=== PATIENT | female | born 1965 | race Caucasian/White ===

== ENCOUNTER 2025-04-01 16:21 | Inpatient (IN) | payer SELFPAY ==
[2025-04-01] VITALS (7 sets, daily range): BP systolic 157–216; BP diastolic 66–113; BMI 32.2; BMI 31.8
[2025-04-01 13:28] LABS: Hematocrit 32.4 % (37.0-47.0); Hemoglobin 10.7 g/dL (12.0-16.0); Mean Corp Hgb Conc. 33.0 g/dL (33.0-37.0); Mean Corpuscular Volume 91.0 fL (81.0-99.0); Nucleated Red Blood Cells % 0 %; Platelet Count 235 10^3/uL (130-400); Red Cell Dist. Width 12.6 % (11.5-14.5)
[2025-04-01 14:01] LABS: ALT (SGPT) 13 U/L (0-35); AST (SGOT) 17 U/L (14-36); Albumin 4.1 g/dl (3.5-5.0); Alkaline Phosphatase 71 U/L (38-126); Blood Urea Nitrogen 34 mg/dl (7-17); Calcium 9.6 mg/dl (8.4-10.2); Carbon Dioxide 25 mmol/L (22-30); Chloride 113 mmol/L (98-107); Glucose 102 mg/dl (70-99); Potassium 4.7 mmol/L (3.5-5.1); Sodium 145 mmol/L (135-145); Total Protein 7.3 g/dl (6.3-8.2); eGFR 31.66
[2025-04-01 14:19] LABS: Troponin I 0.330 ng/ml
--- NOTE | 2025-04-01 15:16 | ED.GENMED ---
History of Present Illness
General
Chief Complaint: Chest Pain
Source: patient
Exam Limitations: none
Time Seen by Provider: 04/01/25 14:56
History of Present Illness
History of Present Illness:
See MDM
Past History
Past History
ED Past Medical History: HTN
ED Past Surgical History: Other (Gastric bypass)
Social History
Tobacco: Non-smoker
Alcohol: None
Phy Exam
Physical Exam
Physical Exam:
See MDM
Scores
Heart Score for Chest Pain Patients
STEMI patient?: No
History: Slightly or Non-Suspicious
ECG: Nonspecific Repolarization
Age: >45 - <65 years
Risk Factors: 1 or 2 Risk Factors
Troponin: >/= 3 x Normal Limit
Heart Score for Chest Pain Patients: 5
Heart Score Risk: 20.3% MACE over next 6 weeks
Course
Orders/Labs/Results
Orders:
Orders
04/01/25 12:54
Electrocardiogram (*1) Urgent
Reason for Study: Chest Pain
EKG- Treatment ONCE
04/01/25 13:09
Complete Blood Count/With Diff Urgent
Comprehensive Metabolic Panel Urgent
Troponin I Urgent
04/01/25 15:08
PTT Urgent
Prothrombin Time Urgent
Aspirin Chewable [Low Strength Aspirin] 324 mg PO NOW STA
Heparin 4,000 units IV NOW STA
Nitroglycerin Sublingual [Nitrostat (Sublingual)] 0.4 mg SL [id number] PRN
Nursing to Place Non Medication Order As Directed
Physician Order: PTT 6 hours after initial start of Heparin infusion
04/01/25 15:15
Heparin 29603 Units/250 ml 25,000 units in 250 ml IV PER PROTOCOL
Weight to be used for heparin protocol in kilograms (kg):: 90.5
Protocol:: Cardiac Tx/Acute Coronary
PTT Goal Range to be used:: PTT 73 to 111 seconds
Order type:: Initial
INITIAL Infusion Dose (UNITS/KG/hr) & then follow protocol:: 15 units/kg/hr
Infusion Dose in UNITS/hr & then follow protocol (UNITS/hr):: 1,350
INFUSION RATE in mL/hr & then follow protocol (mL/hr):: 13.5
PTT less than or equal to 64 seconds:: Increase rate by 200 units/hr (+ 2 mL/hr)
PTT 64.1 to 72.9 seconds:: Increase rate by 100 units/hr (+ 1 mL/hr)
PTT 73 to 111 seconds:: Target Range. No change in rate.
PTT 111.1 to 130.9 seconds:: Decrease rate by 100 units/hr (- 1 mL/hr)
PTT 131 to 199.9 seconds:: HOLD for 1 hr. Then decrease rate by 200 units/hr (- 2 mL/hr)
PTT greater than or equal to 200 seconds:: HOLD for 2 hrs & Notify Provider. Then decrease by 200 units/hr (-
2 mL/hr)
Lab follow-up:: Each change, PTT q6h until 2 consecutive are therapeutic. Then PTT
daily.
04/01/25 15:16
Consult Cardiology [CARDIOLOGY CONSULT] Urgent
Consulting Provider: Everette Vergara
Was physician already notified: Yes
Abnormal Lab Results
04/01/25
13:09
RBC 3.56 L 10^6/uL
(4.20-5.40)
Hgb 10.7 L g/dL
(12.0-16.0)
Hct 32.4 L %
(37.0-47.0)
Absolute Monos (auto) 0.7 H 10^3/uL
(0.1-0.6)
Monocytes % 12.1 H %
(1.7-9.3)
Chloride 113 H mmol/L
(98-107)
BUN 34 H mg/dl
(7-17)
Creatinine 1.8 H mg/dL
(0.6-1.0)
Glucose 102 H mg/dl
(70-99)
Troponin I 0.330 H* ng/ml
04/01/25 13:09
04/01/25 13:09
Vital Signs
Initial and Last Documented VS:
Initial Vital Signs
Temp Pulse Resp BP Pulse Ox
98 F 60 16 157/113 97
04/01/25 13:04 04/01/25 13:04 04/01/25 13:04 04/01/25 13:04 04/01/25 13:04
Last Documented Vital Signs
Temp Pulse Resp BP Pulse Ox
98 F 69 19 157/113 97
04/01/25 13:04 04/01/25 15:00 04/01/25 15:00 04/01/25 13:04 04/01/25 13:04
MDM/Problems Addressed
Differential Diagnosis Includes:
HPI and MDM Narrative:
59-year-old female presenting with intermittent chest pain over the past week or so. Patient states it appears random but it has persistently worsened at nighttime. She states she gets a random chest discomfort which is better with massaging and
hot showers. She cannot fully blame worsening symptoms with exertion. When entered the room, patient started to complain of mild chest pressure. EKG was performed prior to my evaluation showing LVH but no obvious ST elevation. Blood work was
also performed which showed a concerning elevation of troponin. Based on this, will start aspirin, nitroglycerin and IV heparin with concern for NSTEMI. Cardiology made aware and will evaluate
Physical exam
General: Well appearing and non-toxic
HEENT: protecting airway
Neck: appears supple
CV: No evidence of cyanosis. Regular rate and rhythm. Murmur auscultated
Resp: No accessory muscle use
Abd: Non-distended
Extremities: No deformities. No leg edema or tenderness
Neuro: alert
Psych: Normal affect
Skin: Intact
Problems Addressed including Acute and Chronic Conditions affecting care:
1. Intermittent chest
Acuity: acute
Prognosis: stable
Details: Will treat as NSTEMI given the elevated troponin. Patient started on IV heparin. Patient given aspirin and nitroglycerin
Updates
Differential Diagnosis (but not limited to): Noncardiac chest pain, NSTEMI
Testing considered: Chest x-ray
Drug therapy (if applicable): OTC meds, please see d/c instruction regarding Rx drugs
Amount and/or Complexity of Data Reviewed
Clinical info obtained from: Patient
External data reviewed: N/A
Labs I independently reviewed (but not limited to): Elevated troponin
Radiology: N/A
Pulse Ox: not hypoxic
EKG independently reviewed: Sinus rhythm, normal axis, LVH, no STEMI
Geology Scientist: Sinus rhythm
Critical Care: The high probability of a clinically significant, sudden or life threatening deterioration of the cardiac system(s) required my full and direct attention, intervention and personal management. The aggregate critical care time was 33
minutes. This time is in addition to time spent performing reported procedures but includes the following:
[x] Data Review and interpretation
[x] Patient assessment and monitoring of vital signs
[x] Documentation
[x] Medication orders and management
Risk of Complication:
Social Determinants of health: Good social support
Discussed with other providers: Hospitalist, sound engineer audio control
Escalation of Care includes Admit/Obs: Given concern for NSTEMI, will admit on heparin drip for cardiac evaluation
Occasional wrong word or 'sound a like' substitutions may have occurred due to the inherent limitations of voice recognition software. Read the chart carefully and recognize, using context, where substitutions have occurred.
*Pulse Oximetry
SaO2: 97
Oxygen Mode of Delivery: Room air
Patient hypoxic: no
*Critical Care Note
Total Time (30-74mins, 75-104mins- exclusive of procedures): 33 min
ED Attending Note
-
Portions of this chart may have been created with voice recognition software.� Occasional wrong word or��sound alike� substitutions may have occurred due to the inherent limitations of voice recognition software.
Discharge Plan
Departure
Patient Disposition: Admit
Date of Disposition: 04/01/25
Time of Disposition: 15:16
Admit to: Telemetry
Presentation/result/management discussed w/ accepting MD/DO: Hospitalist
Discharge Problem:
Acute non-ST elevation myocardial infarction (NSTEMI)
Prescriptions:
No Action
cyanocobalamin (vitamin B-12) 1,000 mcg Tablet
1,000 mcg PO DAILY
Theragen Tablet
1 tab PO DAILY
omeprazole 40 mg Capsule,Delayed Release(Dr/Ec)
40 mg PO DAILY
amlodipine [Norvasc] 10 mg Tablet
10 mg PO DAILY
ibuprofen [Advil] 200 mg Tablet
400 mg PO Q8HPRN PRN (Reason: mild pain)
losartan 100 mg Tablet
100 mg PO DAILY
hydrochlorothiazide 12.5 mg Tablet
12.5 mg PO DAILY
Interventions
Interventions:
*Risk Screen - Suicide Last Done: 04/01/25 13:06
*General Assessment Last Done: 04/01/25 14:17
*Neglect/Abuse Screening Last Done: 04/01/25 13:06
*ED- Fall Risk Assessment Last Done: 04/01/25 14:17
*ED COVID-19 Vaccine History Last Done: 04/01/25 14:17
ED- Cardiac Assessment Last Done: 04/01/25 14:17
Discharge Date and Time
Print Language: PERUVIAN
[2025-04-01] MEDS: LOW STRENGTH ASPIRIN 324 MG PO (15:33)
[2025-04-01] MEDS: NITROSTAT (SUBLINGUAL) 0.4 MG SL (15:33)
--- NOTE | 2025-04-01 15:38 | HPS.HSE ---
Family Physician
-
Family Physician:
Chief Complaint
-
Chest pain
History of Present Illness
Patient is 59 years old female with history of hypertension, obesity status post gastric sleeve in the past, GERD, came into the hospital chest pain. Patient has been experiencing chest pain for over a week and a half intermittent in nature, mild
to moderate intensity. She describes chest discomfort as pressure-like, midsternum, radiated to her back, not associated with shortness of breath, nausea, vomiting, diaphoresis, near-syncope, or syncope. Patient has been experiencing this
discomfort multiple times throughout the day but mainly at nighttime as she felt it was related to her gastric issues and she has been taking extra omeprazole doses and sometimes Gas-X. Today when she was walking at the parking lot she started
having this chest pain that lasted more than 20 minutes and decided to come to the hospital. Of note, patient has run out of her medications over the last week or so. Her blood pressure was noted to be elevated in the ED. Here in the ER by the
time of my evaluation she is chest pain-free. She did have elevated cardiac enzymes and abnormal EKG concerning for ischemic changes. She was started on a heparin drip in the ER and cardiology has been consulted. She was referred to hospitalist
service for evaluation.
Medical History
Past Medical History
Past Medical History: Reports Other (Hypertension, obesity, GERD.)
Past Surgical History: Reports Other (Gastric sleeve in the past, right knee surgery.)
Social History
Tobacco: Non-smoker
Alcohol: Occasional
Drug: None
Employment: Employed
Family History
Family History: Other (History of coronary disease her parents with her father going to flu CABG at the age of 60s)
Allergies / Home Medications
Allergies reflects when Allergies were last updated in [facility].
Home Medications with original date entered in [facility]
Allergy/Medication List:
Allergies
Allergy/AdvReac Type Severity Reaction Status Date / Time
No Known Allergies Allergy Unverified 04/01/25 13:06
Home Medications
amlodipine 10 mg tablet (Norvasc) 10 mg PO DAILY 04/01/25
cyanocobalamin (vitamin B-12) 1,000 mcg tablet 1,000 mcg PO DAILY 04/01/25
hydrochlorothiazide 12.5 mg tablet 12.5 mg PO DAILY 04/01/25
ibuprofen 200 mg tablet (Advil) 400 mg PO Q8HPRN PRN mild pain 04/01/25
losartan 100 mg tablet 100 mg PO DAILY 04/01/25
omeprazole 40 mg capsule,delayed release 40 mg PO DAILY 04/01/25
therapeutic multivitamin 1 tab PO DAILY 04/01/25
Review of Systems
-
A 12 point ROS was completed and negative except as noted: Yes
Physical Exam
Vital Signs
Vital Signs
Temp Pulse Resp BP Pulse Ox
98 F 69 19 168/66 97
04/01/25 13:04 04/01/25 15:00 04/01/25 15:00 04/01/25 15:33 04/01/25 15:20
Physical exam:
General: Acutely ill
HEENT: Normocephalic, Atraumatic and Moist Mucous Membranes
Respiratory: Clear to Auscultation; Negative Wheezes, Rales or Rhonchi
Cardiac: Regular Rhythm and S1/S2, no murmurs rubs or gallops
GI: Soft, Nontender and Nondistended
Musculoskeletal: No Clubbing, No Cyanosis and No Edema
Neuro: Awake, Alert and Oriented, no gross neurological deficits
Psych: Anxious, normal judgment and insight.
Physical Exam
General: Other
Laboratory Results
-
04/01/25 13:09
04/01/25 13:09
Laboratory Results
Total Bilirubin 0.6 mg/dl (0.2-1.3) 04/01/25 13:09
AST 17 U/L (14-36) 04/01/25 13:09
ALT 13 U/L (0-35) 04/01/25 13:09
Alkaline Phosphatase 71 U/L (38-126) 04/01/25 13:09
Troponin I 0.330 ng/ml H* 04/01/25 13:09
Data Reviewed
-
Lab Data: Labs Reviewed by me
Impression/Plan
-
IMPRESSION:
Patient is 59 years old female came into the hospital with chest pain and elevated troponin concerning for non-STEMI. There is an increased risk of morbidity mortality therefore she will need to be treated in the hospital and monitor accordingly.
PLAN:
Chest pain and elevated troponin concerning for acute NSTEMI:
Continue heparin drip
Continue aspirin
Obtain chest x-ray stat
Hold beta-andrey since patient borderline bradycardic
Check fasting lipids in a.m.
Nitro as needed
Seen and reviewed twelve-lead EKG there are some ST depressions and T wave inversion and lead I and aVL, there is also flattening and T wave in lateral precordial leads V4 to V6, and QS waves in lead III.
Cardiology consult-discussed with cardiology via [facility] text
Troponin 0.330
Continue to trend cardiac enzymes
Might need echocardiogram
Keep n.p.o. until cardiology cleared her in case she requires cardiac intervention today-shortly after admission received message with cardiac cath most likely tomorrow so we might allow her to eat and keep her n.p.o. after midnight.
Hypertensive urgency:
Will resume her amlodipine
Hold losartan and hydrochlorothiazide due to TERELL
We will need to use other medications but will reevaluate after restarting calcium channel andrey
Ideally should be on beta-blockers but she is bradycardic and unknown baseline
TERELL:
Creatinine 1.8
Unknown baseline
We will start her on gentle IV fluid
Avoid nephrotoxic
Monitor renal function in a.m.
GERD:
Continue oral PPI
Anemia:
Hemoglobin 10.7 today
Unknown baseline
Will do anemia workup including iron, TIBC, ferritin, B12, folate, LFTs, reticulocyte count
No evidence of active bleeding but history of gastric surgery
Continue to monitor hemoglobin
Mild hyperglycemia:
Likely reactive
Check hemoglobin A1c in a.m.
Check also TSH
DVT prophylaxis:
Currently on heparin drip
CODE STATUS:
Full code
Time spent 75 minutes
[2025-04-01] MEDS: HEPARIN 4000 UNITS IV (15:39)
[2025-04-01] MEDS: HEPARIN 25000 UNITS/250 ML IV (15:40)
[2025-04-01 15:57] LABS: INR 1.35; PT 16.9 Sec (11.4-14.6)
[2025-04-01 15:58] LABS: APTT 30.9 Sec (23.4-35.0)
--- NOTE | 2025-04-01 15:58 | CON.CAR ---
Addendum entered and electronically signed by Jamie Cr MD 04/01/25 18:43:
Patient seen and examined. PA note reviewed and findings independently confirmed by me. Briefly, this is a 59-year-old female with a past medical history notable for resistant hypertension. She presented to [facility] for evaluation of
chest discomfort that began after she bent over to picking machine operator helper a bottle of water off the ground. Her story is rather interesting and that for the past 1 to 2 weeks she has been experiencing severe nocturnal chest/back discomfort that has been awakening
her from sleep. She will get out of bed and actually take a hot shower with symptoms lasting for at least 10 to 15 minutes. Nothing made the symptoms better and nothing made the symptoms worse. Her symptoms began as a dull ache and progressively
worsened over a few minutes and when the symptoms resolved they resolve slowly. During the day she is physically active. 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 She did light housework over the weekend with no
problem and has been normally active around the house. None of this physical activity has prompted any chest discomfort. Today, she was bending over to picking machine operator helper a water bottle off the ground and noted the sudden onset of chest discomfort similar to
the character of pain that was awakening her from sleep. She presented to [facility] for further evaluation and her initial troponin measured 0.33 ng/mL.
Past Medical History:
-Hypertension requiring multiple drugs including amlodipine 10 mg daily, losartan 100 mg daily, and hydrochlorothiazide 12.5 mg daily
-Gastric bypass
-Renal insufficiency
-Untreated sleep apnea
-GERD
Physical Exam:
GEN: AAO x 3. No acute distress
HEENT: NC/AT, sclera are anicteric, hearing and nares are normal. MMM
NECK: Supple. Normal JVP
LUNGS: Clear to bases bilaterally. No wheezing or rhonchi
CV: Regular rate and rhythm. Normal S1/S2. No S3, No S4. Murmur: Flow murmur noted at the upper sternal border
ABD : Soft, NT, ND, No HSM. Bowel sounds are present.
EXT: No CCE
NEURO: No focal neurologic deficits
IMPRESSION/RECOMMENDATION:
-Chest discomfort with elevated troponin
The clinical history is somewhat atypical for cardiac etiology with symptoms only occurring at rest and at night.
Elevated troponin
Continue to trend troponin
Check fasting lipid profile and initiate treatment with high intensity lipid-lowering
Echocardiogram
Will likely proceed with coronary angiography in a.m.
Aspirin 81 mg daily and IV heparin
- Hypertension
Continue amlodipine, losartan, and HCTz.
Hold on oral beta andrey given resting bradycardia
- Renal insufficiency
Continue to monitor
Will hydrate before catheterization.
Original Note:
Consultation
Consultation Request
Date/Time Consultation Requested: 04/01/2025
Date/Time Consultation Performed: 04/01/2025
Requesting Provider: Dr. To
Performing Provider: Nathalia Mas PA-C for Dr. Cr
Reason for Consultation: Chest pain, concern for NSTEMI
Medical History
-
History of Present Illness:
HPI: Sydney is a 59 year old female with PMH of hypertension GERD, and family h/o CAD who presented to [facility] ER for evaluation of 1 week of intermittent chest discomfort. Discomfort has been typically waking her up at night, and she has only been
able to get relief with a hot shower. After she takes a shower for a few minutes, the pain subsides and she is able to go back to sleep. 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 Today she bent over to get a water
bottle and felt the chest discomfort coming on, so came to ER for evaluation. In ER, she was found to have elevated troponin of 0.33 and was given SL nitro, aspirin, and started on IV heparin. She is pain free currently, however given concern for
NSTEMI, cardiology consulted. She has no personal cardiac history, but does note family history in father and brother.
PMH:
HTN
GERD
Family h/o CAD
Past Medical History
Past Medical History: Other (In HPI)
Past Surgical History: Other (Gastric bypass)
Social History
Tobacco: Non-Smoker
Alcohol: Occasional
Drug: None
Personal:
Living: With Family
Employment: Employed
Family History
Family History: CAD and Cancer
Allergies / Home Medications
Allergy/AdvReac Type Severity Reaction Status Date / Time
No Known Allergies Allergy Unverified 04/01/25 13:06
�Medication �Instructions �Recorded �Confirmed �Type
amlodipine 10 mg tablet (Norvasc) 10 mg PO DAILY 04/01/25 04/01/25 History
cyanocobalamin (vitamin B-12) 1,000 mcg PO DAILY 04/01/25 04/01/25 History
1,000 mcg tablet
hydrochlorothiazide 12.5 mg tablet 12.5 mg PO DAILY 04/01/25 04/01/25 History
ibuprofen 200 mg tablet (Advil) 400 mg PO Q8HPRN PRN mild pain 04/01/25 04/01/25 History
losartan 100 mg tablet 100 mg PO DAILY 04/01/25 04/01/25 History
omeprazole 40 mg capsule,delayed 40 mg PO DAILY 04/01/25 04/01/25 History
release
therapeutic multivitamin 1 tab PO DAILY 04/01/25 04/01/25 History
Review of Systems
-
History Source: Patient
All other systems: Negative unless noted
Physical Exam
Vital Signs
Temp Pulse Resp BP Pulse Ox
98 F 69 19 185/87 97
04/01/25 13:04 04/01/25 15:00 04/01/25 15:00 04/01/25 15:38 04/01/25 15:20
Lab Results
04/01/25 13:09
04/01/25 13:09
Troponin I 0.330 ng/ml H* 04/01/25 13:09
Physical Exam
General: Well Developed, Well Nourished and No Apparent Distress
HEENT: Normocephalic, Anicteric and Moist Mucous Membranes
Respiratory: Clear and Non Labored Respirations
Cardiac: S1/S2, Regular Rhythm and Murmur
Musculoskeletal: No Clubbing, No Cyanosis and No Edema
Skin: Warm and Dry
Neuro: AO x 3 and Nonfocal/Grossly Intact
Psych: Calm
Impression / Plan
-
Labor Delivery Specialist: None prior to admission, initially seen by Dr. Cr
Impression:
Presented with intermittent chest pain x 1 week
Elevated troponin, concern for NSTEMI
HTN
GERD
Family h/o CAD
Echo 04/01/2025: Study pending
Plan:
-Presented with chest pain which has been intermittently occurring for the past week, typically at night. Improved w/ taking hot shower.
-Initial troponin elevated at 0.33. Continue to trend to peak. Chest pain free currently. Given SL nitro in ER.
-EKG reviewed. SR with LVH.
-Chest xray without acute abnormality
-Given 324 mg aspirin in ER. Continue aspirin 81mg daily.
-Continue IV heparin. Likely for LHC in AM.
-Creat noted to be elevated at 1.8. Will follow up in AM. May need gentle hydration prior to cath.
-Check echo
-BP elevated in ER. On amlodipine 10mg daily, losartan 100mg daily, and HCTZ 12.5mg daily as OP. Agree w/ holding losartan and HCTZ with creat of 1.8.
-Not on statin. Check CVE, Hgb A1c in AM.
-Hgb noted to be 10.7. Workup per primary service.
HPI: Sydney is a 59 year old female with PMH of hypertension GERD, and family h/o CAD who presented to [facility] ER for evaluation of 1 week of intermittent chest discomfort. Discomfort has been typically waking her up at night, and she has only been
able to get relief with a hot shower. After she takes a shower for a few minutes, the pain subsides and she is able to go back to sleep. 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 Today she bent over to get a water
bottle and felt the chest discomfort coming on, so came to ER for evaluation. In ER, she was found to have elevated troponin of 0.33 and was given SL nitro, aspirin, and started on IV heparin. She is pain free currently, however given concern for
NSTEMI, cardiology consulted. She has no personal cardiac history, but does note family history in father and brother.
Data Reviewed
-
EKG: Tracing Personally Visualized and interpreted
Radiology: Report Reviewed by me
Labs: Labs Reviewed by me
Old Records: Reviewed
--- NOTE | 2025-04-01 16:05 | CM ---
CM reviewed chart and met with pt bedside in ED. Lives with her SO, daughter and SCOTT in one story home, no CANDICE.
Independent in ADLs, personal care and ambulation at baseline.
Address is [address] [place] [address]. Evita ENGLE. ( not yet seen by registration)
No DME.
No hx VN/SNF.
PCP: [facility] Lemus
Pharmacy: [facility]
Discharge plan: Anticipate home pending ongoing medical evaluation
[2025-04-01] MEDS: PROTONIX 40 MG PO (17:43)
[2025-04-01] MEDS: APRESOLINE 10 MG IV (17:43)
[2025-04-01] MEDS: NSS 1000 IV (17:47)
[2025-04-01] MEDS: NORVASC 10 MG PO (18:26)
--- NOTE | 2025-04-01 18:44 | PTCARENOTE ---
Patient admitted to IVU, assisted into room. AO x3, does have chest tightness 1 out 10. BP 216/71 10 mg of PO Norvasc given. NSR HR 74. Denies SOB POX 96% on room air. Plan of care reviewed, call suggs in reach
--- NOTE | 2025-04-01 21:36 | PTCARENOTE ---
Received pt @ change of shift. AAOx3, BP 216/71 (treated in ED), other VSS-- NSR on monitor. Denies headache or chest pain @ this time. NSS gtt running @ 85 mL/hr and heparin gtt running @ 1350 units/hr through right AC. Pt c/o IV in left AC-- red
and a little edemas-- removed and given ice-- pt states 'feeling much better.' Discussed plan of evening-- EKG/trops every 6 hrs and being NPO @ midnight for cath in AM. Pt verbalizes understanding. Call suggs within reach.
[2025-04-01 21:41] LABS: APTT 137.5 Sec (23.4-35.0)
[2025-04-01 21:57] LABS: Troponin I 0.251 ng/ml
[2025-04-02] VITALS (17 sets, daily range): BP systolic 159–190; BP diastolic 72–107
[2025-04-02] MEDS: NSS 1000 IV ×2 (05:05→19:20)
[2025-04-02] MEDS: APRESOLINE 10 MG IV ×2 (05:05→14:54)
[2025-04-02 05:42] LABS: Hematocrit 29.3 % (37.0-47.0); Hemoglobin 9.8 g/dL (12.0-16.0); Mean Corp Hgb Conc. 33.4 g/dL (33.0-37.0); Mean Corpuscular Volume 89.1 fL (81.0-99.0); Platelet Count 201 10^3/uL (130-400); Red Cell Dist. Width 12.5 % (11.5-14.5); Reticulocyte Count 1.0 % (0.4-2.8)
[2025-04-02 05:58] LABS: APTT 75.7 Sec (23.4-35.0)
[2025-04-02 06:00] LABS: ALT (SGPT) 11 U/L (0-35); AST (SGOT) 16 U/L (14-36); Albumin 3.5 g/dl (3.5-5.0); Alkaline Phosphatase 63 U/L (38-126); Blood Urea Nitrogen 27 mg/dl (7-17); Calcium 8.5 mg/dl (8.4-10.2); Carbon Dioxide 22 mmol/L (22-30); Chloride 116 mmol/L (98-107); Estimated Creatinine Clearance 47 ml/min; Glucose 99 mg/dl (70-99); HDL Cholesterol 39 mg/dl; Iron 86 ug/dl (37-170); LDL Cholesterol, Calculated 125 mg/dl; Potassium 3.6 mmol/L (3.5-5.1); Sodium 144 mmol/L (135-145); Total Protein 6.4 g/dl (6.3-8.2); Very Low Density Lipoprotein 14 mg/dl (0-30); eGFR 42.80
[2025-04-02] MEDS: TYLENOL 650 MG PO ×3 (06:04→19:23)
[2025-04-02 06:08] LABS: Troponin I 0.256 ng/ml
[2025-04-02 06:10] LABS: Total Iron Binding Capacity 285 ug/dl (265-497)
[2025-04-02 06:35] LABS: Ferritin 11.1 ng/ml (11.1-264.0)
[2025-04-02 07:06] LABS: Folate > 20.0 ng/ml (2.76-20); Vitamin B12 > 1000 pg/ml (239-931)
--- NOTE | 2025-04-02 08:53 | W.PN.HOSP.TC ---
Today's Communication/Plan
-
Cardiac cath
Assessment / Plan
Assessment / Plan
Physical exam:
General: Acutely ill
HEENT: Normocephalic, Atraumatic and Moist Mucous Membranes
Respiratory: Clear to Auscultation; Negative Wheezes, Rales or Rhonchi
Cardiac: Regular Rhythm and S1/S2, no murmurs rubs or gallops
GI: Soft, Nontender and Nondistended
Musculoskeletal: No Clubbing, No Cyanosis and No Edema
Neuro: Awake, Alert and Oriented, no gross neurological deficits
Psych: Anxious, normal judgment and insight.
A/P:
Acute NSTEMI:
Continue heparin drip
Continue aspirin and statins
Cardiology consult appreciated
Chest x-ray unremarkable
Plan for possible cardiac cath today
Hypertensive urgency:
Continue her amlodipine
Hold losartan and hydrochlorothiazide due to TERELL
On IV hydralazine as needed
TERELL:
Creatinine 1.8--> down to 1.4
Unknown baseline
Continue on gentle IV fluid
Avoid nephrotoxic
Monitor renal function in a.m.
GERD:
Continue oral PPI
Anemia:
Hemoglobin 10.7--> 9.8 today
Unknown baseline
Will do anemia workup including iron, TIBC, ferritin, B12, folate, LFTs, reticulocyte count--> element of iron deficiency with ferritin of 11
No evidence of active bleeding but history of gastric surgery
Continue to monitor hemoglobin
Mild hyperglycemia:
Hemoglobin A1c 5.7
TSH normal
DVT prophylaxis:
Currently on heparin drip
CODE STATUS:
Full code
Total time spent on today's encounter was 50 minutes which included time spent in counseling the patient/family regarding diagnosis and treatment plan as listed above, goals of care, and symptom management. Case was discussed with nursing staff,
specialists, and care coordinators/case management. All labs and imaging personally reviewed by me. Remainder the time spent in detailed review of previous records, lab data, imaging, and other medical provider documentation.
Anticipated Discharge: 24 - 48 hours
Subjective/Interval History
-
Date of Service: April 02, 2025
Patient remains chest pain-free. No shortness of breath.
Objective Data
-
Labs:
Laboratory Results
04/01/25 04/02/25
21:16 05:15
WBC 6.0
Hgb 9.8 L
Hct 29.3 L
Plt Count 201
APTT 137.5 H 75.7 H
Sodium 144
Potassium 3.6
Chloride 116 H
Carbon Dioxide 22
BUN 27 H
Creatinine 1.4 H
Glucose 99
Calcium 8.5
Total Bilirubin 0.6
AST 16
ALT 11
Alkaline Phosphatase 63
Vital Signs:
Vital Signs
Temp Pulse Resp BP Pulse Ox
97.7 F 57 18 159/72 97
04/02/25 07:38 04/02/25 08:00 04/02/25 07:38 04/02/25 07:37 04/02/25 07:38
[2025-04-02] MEDS: PROTONIX 40 MG PO (08:55)
[2025-04-02] MEDS: LOW STRENGTH ASPIRIN 81 MG PO (08:55)
[2025-04-02] MEDS: NORVASC 10 MG PO (08:55)
[2025-04-02 09:03] LABS: Glycohemoglobin (HgbA1c) 5.7 % (4.0-5.6)
[2025-04-02 11:28] LABS: APTT 109.2 Sec (23.4-35.0)
[2025-04-02 11:52] LABS: Troponin I 0.239 ng/ml
--- NOTE | 2025-04-02 11:52 | W.PN.CARDCBS ---
Today's Communication / Plan
-
NPO for cath today
continue asa, IV heparin
add statin
follow BP trends, may need uptitration of antihypertensive regimen
Impression / Plan
-
Cabin Service Agent: None prior to admission, initially seen by Dr. Cr
Impression:
Presented with intermittent chest pain x 1 week
Elevated troponin, concern for NSTEMI
HTN
GERD
Family h/o CAD
Echo 04/01/2025: EF 60-65%, mild cLVH, stage II diastolic dysfunction, mild MR, mod dilated LA, aortic sclerosis
Plan:
-Presented with chest pain which has been intermittently occurring for the past week, typically at night. Improved w/ taking hot shower.
-Initial troponin elevated at 0.33 and trended down. Given SL nitro in ER.
-she remains chest pain free overnight
-Chest xray without acute abnormality
-Continue asa 81mg daily.
-Continue IV heparin. she is very anxious regarding cath procedure. Cr improved to 1.4 on 04/02. she is NPO. procedure explained to patient in detail including conscious sedation and she is agreeable to proceed. we discussed trop elevation could be
secondary to elevated BP in setting of known CKD. we discussed possible outcomes of cath including no intervention, stenting, or CT surgical evaluation, as well as alternatives to cath including stress testing, however if stress test abnormal,
discussed would need cath anyway. she is asking for something for anxiety preprocedure
-echo with results as above, discussed results with patient 04/02
-BPs remain elevated. she reports she is stressed as she is concerned about getting a large hospital bill. the 1 year anniversary of her daughter's passing also just occurred. She is on amlodipine 10mg daily, losartan 100mg daily, and HCTZ 12.5mg
daily as OP. Agree w/ holding losartan and HCTZ with creat of 1.8. HR is on slow side and by review of tele, with one brief episode of possible AIVR.
-LDL 125. lipitor 40mg QPM added.
-check hgbA1c
-Hgb 9.8. Iron studies appear ok. Workup per primary service. possibly chronic disease
-d/w nursing
-d/w significant other at bedside
HPI: Sydney is a 59 year old female with PMH of hypertension GERD, and family h/o CAD who presented to [facility] ER for evaluation of 1 week of intermittent chest discomfort. Discomfort has been typically waking her up at night, and she has only been
able to get relief with a hot shower. After she takes a shower for a few minutes, the pain subsides and she is able to go back to sleep. 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 Today she bent over to get a water
bottle and felt the chest discomfort coming on, so came to ER for evaluation. In ER, she was found to have elevated troponin of 0.33 and was given SL nitro, aspirin, and started on IV heparin. She is pain free currently, however given concern for
NSTEMI, cardiology consulted. She has no personal cardiac history, but does note family history in father and brother.
Progress Note - Cabin Service Agent
Subjective
Date of Service: April 02, 2025
no CP, SOB
Objective
Labs:
04/02/25 05:15
04/02/25 05:15
Labs
Hgb 9.8 g/dL (12.0-16.0) L 04/02/25 05:15
Hct 29.3 % (37.0-47.0) L 04/02/25 05:15
Plt Count 201 10^3/uL (130-400) 04/02/25 05:15
PT 16.9 Sec (11.4-14.6) H 04/01/25 15:34
INR 1.35 04/01/25 15:34
APTT 109.2 Sec (23.4-35.0) H 04/02/25 11:06
Sodium 144 mmol/L (135-145) 04/02/25 05:15
Potassium 3.6 mmol/L (3.5-5.1) 04/02/25 05:15
BUN 27 mg/dl (7-17) H 04/02/25 05:15
Creatinine 1.4 mg/dL (0.6-1.0) H 04/02/25 05:15
Glucose 99 mg/dl (70-99) 04/02/25 05:15
Troponins
04/01/25 04/01/25 04/01/25
13:09 16:15 21:16
Troponin I 0.330 H* Cancelled 0.251 H*
04/01/25 04/02/25
22:15 05:15
Troponin I Cancelled 0.256 H*
Vital Signs and I&O:
Vital Signs
Temp Pulse Resp BP Pulse Ox
97.7 F 57 16 159/72 98
04/02/25 11:24 04/02/25 08:00 04/02/25 11:24 04/02/25 07:37 04/02/25 11:24
Vital Signs
Temp Pulse Resp BP Pulse Ox
97.7 F 57 16 159/72 98
04/02/25 11:24 04/02/25 08:00 04/02/25 11:24 04/02/25 07:37 04/02/25 11:24
Physical Exam
Physical Exam
GEN: No distress, awake, alert, oriented x3
HEENT: supple, anicteric, mmm, eomi
LUNGS: CTA B/L, no wheezes/rales
CV: Reg, S1/S2, no murmur
ABD: soft, BS+, NT/ND
EXT: No cyanosis, clubbing, edema
NEURO: Gross non-focal
SKIN: Warm, pink, dry. No rash
[2025-04-02] MEDS: ATIVAN 0.5 MG PO (13:15)
[2025-04-02] MEDS: FERRLECIT 110 MG IV (14:31)
--- NOTE | 2025-04-02 16:01 | CONSULT.CT ---
Consultation
-
Date/Time Consultation Requested: 04/02/25
Date/Time Consultation Performed: 04/02/25
Requesting Provider: Dr. Cr
Performing Provider: Katerin WESLEY for Bc Sanders MD
Reason for Consultation: CABG evaluation
Patient History
Physicians
Family Physician: Bc Lemus
Outpatient Button Maker: none
Inpatient Button Maker: Dr Cr
History of Present Illness
59-year-old female (R hand dominant) with PMH of HTN, GERD, obesity w/gastric sleeve, admitted to [facility] ER on 04/01/25 for severe nocturnal chest/back discomfort that has been awakening her from sleep x 1 week. Denies
aggravating/alleviating factors. Today, she picked up a water bottle off the ground and noted the sudden onset of chest discomfort similar to the pain that awakened her from sleep. She ruled in for a NSTEMI with initial troponin 0.33. IV heparin,
aspirin, and statin were initiated. A TTE reported an EF of 60 to 65% with normal right ventricular size and function. There was mild mitral regurgitation, no aortic stenosis, trace aortic insufficiency/tricuspid regurgitation/pulmonary
insufficiency. Patient underwent left heart catheterization on 04/02/2025 which reported multi-vessel coronary disease.
Pertinent negatives: CVA, asthma/COPD, hepatitis, dysphasia, DVT/AK, vein stripping, cancer
Past Medical History
Past Medical History: GERD, HTN and ALBERTO (untreated)
Past Surgical History
Past Surgical History: Abdominal (gastric sleeve) and Orthopedic (R knee surgery)
Family History
Father: Cause of (CABG in his 60s>suffered antonio-op CVA, lived additional 5-6 years unable to speak)
Social History
Alcohol: Occasional
Drug: None
Tobacco: Non-Smoker
Personal:
Living: With Spouse
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
Allergies
Allergy/AdvReac Type Severity Reaction Status Date / Time
No Known Allergies Allergy Verified 04/01/25 18:28
Home Medications
�Medication �Instructions �Recorded �Confirmed �Type
amlodipine 10 mg tablet (Norvasc) 10 mg PO DAILY 04/01/25 04/01/25 History
cyanocobalamin (vitamin B-12) 1,000 mcg PO DAILY 04/01/25 04/01/25 History
1,000 mcg tablet
hydrochlorothiazide 12.5 mg tablet 12.5 mg PO DAILY 04/01/25 04/01/25 History
ibuprofen 200 mg tablet (Advil) 400 mg PO Q8HPRN PRN mild pain 04/01/25 04/01/25 History
losartan 100 mg tablet 100 mg PO DAILY 04/01/25 04/01/25 History
omeprazole 40 mg capsule,delayed 40 mg PO DAILY 04/01/25 04/01/25 History
release
therapeutic multivitamin 1 tab PO DAILY 04/01/25 04/01/25 History
Review of Systems
-
History Source: Patient
General: Reports No Symptoms
HEENT: Reports No Symptoms
Respiratory: Reports No Symptoms
Cardiac: Reports Chest Pain (as noted in HPI)
Abdomen/GI: Reports No Symptoms
: Reports No Symptoms
Musculoskeletal: Reports No Symptoms
Skin: Reports No Symptoms
Neurological: Reports No Symptoms
Vascular: Reports No Symptoms
Physical Exam
Vital Signs
Temp 97.7 F 04/02/25 11:24
Temp route: Oral 04/02/25 11:24
Pulse 60 04/02/25 14:45
Rhythm: Normal sinus rhythm 04/02/25 08:00
Resp Rate 16 04/02/25 11:24
Blood pressure 178/85 04/02/25 14:54
Blood pressure extremity used: Right forearm 04/02/25 11:24
Position: Lying 04/02/25 11:24
MAP (cuff-Huma Monitor) 113 04/02/25 14:43
SaO2 98 04/02/25 11:24
Oxygen Mode of Delivery Room air 04/02/25 11:24
Can the patient verbally communicate their pain? Yes 04/02/25 11:36
Pain scale ratin 04/02/25 11:36
Actual Weight 89.2 kg 04/01/25 18:17
Body Mass Index (BMI) 31.8 04/01/25 18:17
Labs
04/02/25 05:15
04/02/25 05:15
PT 16.9 Sec (11.4-14.6) H 04/01/25 15:34
APTT 109.2 Sec (23.4-35.0) H 04/02/25 11:06
Hemoglobin A1c Cancelled 04/02/25 05:15
Troponin I 0.239 ng/ml H* 04/02/25 11:06
Diagnostic Studies
LHC (R radial) 04/[address] Cr:
LEFT MAIN: Normal
LAD: luminal irregularities. 70% proximal stenosis D1.
CIRCUMFLEX: 80% proximal stenosis OM1. The circumflex continues in the AV groove supplying a small and tortuous PDA which has a 70% proximal stenosis
RCA: Nondominant
Exam
General: Well Developed and Well Nourished
HEENT: Normocephalic and Anicteric
Neck: Trachea Midline
Respiratory: Clear
Cardiac: S1/S2 and Regular Rhythm
GI: Soft, Non Tender and Normal Bowel Sounds
Rectal: Deferred by Provider
Skin: Warm and Dry
Neuro: AO x 3 and No Motor Deficits
Lymph: No Lymphadenopathy
Psych: Other (withdrawn, flat affect)
Assessment / Plan
-
59 year old female admitted with NSTEMI/2VCAD and preserved LV function
- surgeon to review imaging
- patient reluctant to discuss surgery as her father suffered a antonio-op CVA after CABG
Data Reviewed
-
EKG: Report Reviewed by me and Discussed with Physician
Electrical Sign Servicer: Report Reviewed by me and Discussed with Physician
Echo: Report Reviewed by me and Discussed with Physician
Radiology: Report Reviewed by me and Discussed with Physician
Labs: Labs Reviewed by me and Discussed with Physician
--- NOTE | 2025-04-02 16:01 | CM ---
spoke to pt in room, confirmed that she does not have active insurance. 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 she has insurance but when her husb it continued to cover her and her daughter (adult disabled sreedhar) and recently her daughter and she
lost insurance. her work does not have open enrollment at this time.
--- NOTE | 2025-04-02 16:15 | PTCARENOTE ---
Received pt from senior label specialist, monitor showing NSR, BP 170-180/90. Pt visibly upset, anxious, crying--supportive care given. Right radial band intact, no bleeding or hematoma noted, +cms to fingers. Denies chest pain at present. C/O headache, offered
tylenol, but pt wanted to try eating first. Instructed on activity restrictions regarding access site, pt verbalizes understanding. Significant other at bedside, call suggs in reach.
--- NOTE | 2025-04-02 16:54 | ITS.CL.CATH ---
Finisher Screwdown - Catheterization
Cardiac Catheterization
Procedure Report:
LEFT HEART CATHETERIZATION
Date of Procedure: April 02, 2025
Referring: Dr. Jamie Cr
PROCEDURES:
1. Left heart catheterization with coronary and single-plane left ventriculography
INDICATION: This is a 59-year-old female with a past medical history notable for hypertension who presented to [facility] with a rather atypical cardiac history. She states that for the past week or so she has been awakened at night with
terrible back and chest discomfort causing her to get out of bed and take a hot shower. During the day she was reasonably active without anginal symptoms. Her initial troponin returned at 0.330 ng/mL.
ACCESS: Right radial artery, 6 Guamanian sheath
HEMODYNAMICS : (mmHg)
AO (s/d) : 170/80
LV (s/d) : 169/17
LVEDP : 28
CORONARY FINDINGS
DOMINANCE: Left
LEFT MAIN: Normal
LEFT ANTERIOR DESCENDING: The LAD arises normally from the left main running in the anterior interventricular groove. The remainder of the LAD has minor irregularities of the distal vessel wraps around the apex is a small caliber vessel. The first
diagonal branch is large and has a 70% proximal stenosis.
CIRCUMFLEX: The circumflex is a dominant vessel. OM1 is a moderate to large caliber vessel with a 80% proximal stenosis. The circumflex continues in the AV groove supplying a small and tortuous PDA which has a 70% proximal stenosis
RIGHT CORONARY ARTERY: Nondominant
VENTRICULOGRAPHY: Left ventriculography is performed in an JEFFREY projection with an estimated ejection fraction of 65%
SEDATION: 23 minutes of procedural sedation was utilized. An independent medical data entry clerk was present to assist with and help manage the patient's level of consciousness and physiologic status.
RADIATION SUMMARY: Fluoro Time (min): 3.1, Dose (mGy): 455, DAP (Gy.cm2) : 31.8
Closure Device: TR band
CONCLUSIONS
1. Multivessel coronary artery disease involving a sizable first diagonal branch, mid LAD, large obtuse marginal branch and PDA
2. Preserved LV systolic function
RECOMMENDATIONS
1. Consult CT surgery to consider surgical revascularization
Copy to: Dr. Jmaie Cr
[2025-04-02] MEDS: LIPITOR 40 MG PO (17:08)
[2025-04-02] MEDS: XANAX 0.25 MG PO (20:33)
[2025-04-02] MEDS: COREG 6.25 MG PO (20:33)
[2025-04-02] MEDS: NSS IV (21:50)
[2025-04-02 22:09] LABS: APTT 43.1 Sec (23.4-35.0)
[2025-04-02] MEDS: HEPARIN 25000 UNITS/250 ML IV (22:24)
[2025-04-03] VITALS (8 sets, daily range): BP systolic 110–178; BP diastolic 59–97
--- NOTE | 2025-04-03 02:02 | PTCARENOTE ---
Assumed care on pt at 1900, aaox3, aggravated and tearful d/t cath results. Having questions on why she needs surgery despite 's explanation. call specialist CT PA made aware and at bedside to see pt and answer questions. Heparin restarted at 2200
at previous rate. No c/o cp, SOB or dizziness. SR/SB on the monitor HR 50-60's. R radial dsg CDI, no swelling, bleeding or hematoma noted. Pt c/o headache and right arm pain, was medicated at change of shift by days shift nurse with + effect. Call
suggs within reach.
[2025-04-03 04:24] LABS: Hematocrit 31.4 % (37.0-47.0); Hemoglobin 10.4 g/dL (12.0-16.0); Mean Corp Hgb Conc. 33.1 g/dL (33.0-37.0); Mean Corpuscular Volume 91.0 fL (81.0-99.0); Platelet Count 208 10^3/uL (130-400); Red Cell Dist. Width 12.9 % (11.5-14.5)
[2025-04-03 04:40] LABS: APTT 115.3 Sec (23.4-35.0)
[2025-04-03 04:41] LABS: Blood Urea Nitrogen 22 mg/dl (7-17); Calcium 8.7 mg/dl (8.4-10.2); Carbon Dioxide 22 mmol/L (22-30); Chloride 116 mmol/L (98-107); Estimated Creatinine Clearance 44 ml/min; Glucose 99 mg/dl (70-99); Potassium 3.6 mmol/L (3.5-5.1); Sodium 142 mmol/L (135-145); eGFR 39.40
[2025-04-03] MEDS: PROTONIX 40 MG PO (07:54)
[2025-04-03] MEDS: LOW STRENGTH ASPIRIN 81 MG PO (07:55)
[2025-04-03] MEDS: COREG 6.25 MG PO ×2 (07:55→20:55)
[2025-04-03] MEDS: NORVASC 10 MG PO (07:55)
[2025-04-03] MEDS: TYLENOL 650 MG PO (07:55)
--- NOTE | 2025-04-03 08:51 | W.PN.HOSP.TC ---
Today's Communication/Plan
-
Heparin drip. CT surgery eval
Assessment / Plan
Assessment / Plan
Physical exam:
General: Acutely ill
HEENT: Normocephalic, Atraumatic and Moist Mucous Membranes
Respiratory: Clear to Auscultation; Negative Wheezes, Rales or Rhonchi
Cardiac: Regular Rhythm and S1/S2, no murmurs rubs or gallops
GI: Soft, Nontender and Nondistended
Musculoskeletal: No Clubbing, No Cyanosis and No Edema
Neuro: Awake, Alert and Oriented, no gross neurological deficits
Psych: Anxious, normal judgment and insight.
A/P:
Acute NSTEMI:
Continue heparin drip
Continue aspirin and statins
Cardiology consult appreciated
Discussed with sister at bedside
Cardiac catheter with multivessel CAD
CT surgery consult
Hypertensive urgency:
Continue her amlodipine 10 mg p.o. daily
Started on Coreg 6.25 mg twice a day and added oral hydralazine 25 mg twice a day
Hold losartan and hydrochlorothiazide due to TERELL
On IV hydralazine as needed
TERELL:
Creatinine 1.8--> down to 1.5
use of contrast yesterday
Unknown baseline
Avoid nephrotoxic
Check kidney ultrasound in a.m.
Monitor renal function in a.m.
GERD:
Continue oral PPI
Anemia:
Hemoglobin 10.4 today
Unknown baseline
Anemia workup including iron, TIBC, ferritin, B12, folate, LFTs, reticulocyte count--> element of iron deficiency with ferritin of 11
No evidence of active bleeding but history of gastric surgery
IV Iron sort course
Continue to monitor hemoglobin
Mild hyperglycemia Prediabetes:
Hemoglobin A1c 5.7
TSH normal
DVT prophylaxis:
Currently on heparin drip
CODE STATUS:
Full code
Total time spent on today's encounter was 50 minutes which included time spent in counseling the patient/family regarding diagnosis and treatment plan as listed above, goals of care, and symptom management. Case was discussed with nursing staff,
specialists, and care coordinators/case management. All labs and imaging personally reviewed by me. Remainder the time spent in detailed review of previous records, lab data, imaging, and other medical provider documentation.
Anticipated Discharge: > 48 hours
Subjective/Interval History
-
Date of Service: April 03, 2025
Patient denies any chest pain or shortness of breath.
Objective Data
-
Labs:
Laboratory Results
04/02/25 04/03/25 04/03/25
21:40 04:06 11:00
WBC 5.5
Hgb 10.4 L
Hct 31.4 L
Plt Count 208
APTT 43.1 H 115.3 H Pending
Sodium 142
Potassium 3.6
Chloride 116 H
Carbon Dioxide 22
BUN 22 H
Creatinine 1.5 H
Glucose 99
Calcium 8.7
Vital Signs:
Vital Signs
Temp Pulse Resp BP Pulse Ox
98.4 F 55 18 178/79 99
04/03/25 08:02 04/03/25 08:30 04/03/25 08:02 04/03/25 07:58 04/03/25 08:02
I&O
04/02/25 04/03/25 04/04/25
06:59 06:59 06:59
Intake Total 1000 / 1000
Balance 1000 / 1000
--- NOTE | 2025-04-03 10:08 | W.PN.CARDCBS ---
Addendum entered and electronically signed by Jamie Cr MD 04/03/25 12:53:
Attending addendum: Patient see and examined. PA note reviewed. I met and discussed treatment options with the patient reviewing multivessel nature of her coronary disease. If she refuses surgery or is not felt to be a surgical candidate, we
would offer PCI as treatment option. However, given her history I think she would do better with single intervention. Awaiting surgical evaluation.. She has been chest pain free.
Original Note:
Today's Communication / Plan
-
CT surgical eval
continue IV heparin, asa, statin
continue coreg, norvasc. add hydralazine
Impression / Plan
-
Labels Molder: None prior to admission, initially seen by Dr. rC
Impression:
Presented with intermittent chest pain x 1 week
NSTEMI
MV CAD by cath 04/02/25
HTN
GERD
Family h/o CAD
Echo 04/01/2025: EF 60-65%, mild cLVH, stage II diastolic dysfunction, mild MR, mod dilated LA, aortic sclerosis
Plan:
- She presented with chest pain. Troponin peaked at 0.33. Echo with preserved EF. Underwent cardiac catheterization 04/02/2025 which revealed multivessel CAD including diagonal, LAD, OM, PDA.
- R wrist site c/d/i
- CT surgery has been consulted for evaluation for CABG. work up underway
- She remains chest pain-free
- continue asa, IV heparin. hgb 10.4
- LDL 125. Lipitor 40mg QPM added this admission.
- BPs elevated. continue norvasc 10mg daily. coreg 6.25mg BID was started this admission and will need to follow HR trends with this. she has required PRN IV hydralazine. Cr stable at 1.5. holding OP losartan and HCTZ. will add hydralazine 25mg BID
and follow
- hgbA1c 5.7%
- d/w nursing
HPI: Sydney is a 59 year old female with PMH of hypertension GERD, and family h/o CAD who presented to [facility] ER for evaluation of 1 week of intermittent chest discomfort. Discomfort has been typically waking her up at night, and she has only been
able to get relief with a hot shower. After she takes a shower for a few minutes, the pain subsides and she is able to go back to sleep. 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 Today she bent over to get a water
bottle and felt the chest discomfort coming on, so came to ER for evaluation. In ER, she was found to have elevated troponin of 0.33 and was given SL nitro, aspirin, and started on IV heparin. She is pain free currently, however given concern for
NSTEMI, cardiology consulted. She has no personal cardiac history, but does note family history in father and brother.
Progress Note - Labels Molder
Subjective
Date of Service: April 03, 2025
no CP, SOB. reports some R wrist soreness
Objective
Labs:
04/03/25 04:06
04/03/25 04:06
Labs
Hgb 10.4 g/dL (12.0-16.0) L 04/03/25 04:06
Hct 31.4 % (37.0-47.0) L 04/03/25 04:06
Plt Count 208 10^3/uL (130-400) 04/03/25 04:06
PT 16.9 Sec (11.4-14.6) H 04/01/25 15:34
INR 1.35 04/01/25 15:34
APTT 115.3 Sec (23.4-35.0) H 04/03/25 04:06
Sodium 142 mmol/L (135-145) 04/03/25 04:06
Potassium 3.6 mmol/L (3.5-5.1) 04/03/25 04:06
BUN 22 mg/dl (7-17) H 04/03/25 04:06
Creatinine 1.5 mg/dL (0.6-1.0) H 04/03/25 04:06
Glucose 99 mg/dl (70-99) 04/03/25 04:06
Troponins
04/01/25 04/01/25 04/01/25
13:09 16:15 21:16
Troponin I 0.330 H* Cancelled 0.251 H*
04/01/25 04/02/25 04/02/25
22:15 05:15 11:06
Troponin I Cancelled 0.256 H* 0.239 H*
Vital Signs and I&O:
Vital Signs
Temp Pulse Resp BP Pulse Ox
98.4 F 55 18 178/79 99
04/03/25 08:02 04/03/25 08:30 04/03/25 08:02 04/03/25 07:58 04/03/25 08:02
Vital Signs
Temp Pulse Resp BP Pulse Ox
98.4 F 55 18 178/79 99
04/03/25 08:02 04/03/25 08:30 04/03/25 08:02 04/03/25 07:58 04/03/25 08:02
Intake & Output
04/01/25 04/02/25 04/03/25 04/04/25
07:59 07:59 07:59 07:59
Intake Total 1000 / 1000
Balance 1000 / 1000
Physical Exam
Physical Exam
GEN: No distress, awake, alert, oriented x3
HEENT: supple, anicteric, mmm, eomi
LUNGS: CTA B/L, no wheezes/rales
CV: Reg, S1/S2, no murmur
ABD: soft, BS+, NT/ND
EXT: No cyanosis, clubbing, edema
NEURO: Gross non-focal
SKIN: Warm, pink, dry. No rash. R wrist site c/d/i
[2025-04-03 11:43] LABS: APTT 106.8 Sec (23.4-35.0)
[2025-04-03] MEDS: APRESOLINE 25 MG PO ×2 (12:07→20:55)
--- NOTE | 2025-04-03 13:22 | CM ---
CM following for DC planning needs.
Met w/ patient at bedside to introduce CM.
CT Surg plan pending.
CM to follow for DC planning needs.
[2025-04-03] MEDS: FERRLECIT 110 MG IV (16:55)
--- NOTE | 2025-04-03 17:35 | W.PN.UPDATE ---
Update Note
Progress Note Update
STS RISK SCORE
Procedure Type:�Isolated CABG
Perioperative Outcome Estimate %
Operative Mortality 0.871%
Morbidity & Mortality 5.36%
Stroke 0.696%
Renal Failure 1.52%
Reoperation 1.88%
Prolonged Ventilation 2.33%
Deep Sternal Wound Infection 0.194%
Long Hospital Stay (>14 days) 2.17%
Short Hospital Stay (<6 days)* 56.6%
Clinical Summary
Planned Surgery: Isolated CABG, Urgent, First cardiovascular surgery
Demographics: 59 year old, female, 89.2kg, 168cm, BMI: 31.6 kg/m�
Lab Values: Creatinine: 1.5 mg/dL, Hematocrit: 31.4%, WBC Count: 5.5 10�/�L, Platelet Count: 887126 cells/�L
Substance Abuse: Never smoker, Alcohol use: 2-7 drinks/week
Risk Factors / Comorbidities: Hypertension, Family Hx of CAD
Pulmonary RF: Sleep Apnea
Cardiac Status: NYHA Class II, Ejection Fraction = 63%
Coronary Artery Disease: 2 vessels diseased, Non-ST Elevation KS, KS: 1 to 7 Days
Valve Disease: Trivial/Trace AR, Mild MR, Trivial/Trace TR
[2025-04-03 19:52] LABS: APTT 177.6 Sec (23.4-35.0)
[2025-04-03] MEDS: LIPITOR 80 MG PO (20:55)
[2025-04-03] MEDS: HEPARIN 25000 UNITS/250 ML IV (21:08)
--- NOTE | 2025-04-03 22:29 | PTCARENOTE ---
Rec'd pt at change of shift. Pt AAO*3, VSS, SR on TELE monitor and pt denies any pain or discomfort. Heparin infusing per protocol. Pt resting with call suggs in reach. Awaiting CT surgery consultation. See MAR and flowchart for full pt care and
assessment.
[2025-04-04] VITALS (8 sets, daily range): BP systolic 127–166; BP diastolic 56–74
[2025-04-04 04:01] LABS: Hematocrit 29.6 % (37.0-47.0); Hemoglobin 9.8 g/dL (12.0-16.0); Mean Corp Hgb Conc. 33.1 g/dL (33.0-37.0); Mean Corpuscular Volume 90.8 fL (81.0-99.0); Platelet Count 217 10^3/uL (130-400); Red Cell Dist. Width 13.0 % (11.5-14.5)
[2025-04-04 04:12] LABS: APTT 55.8 Sec (23.4-35.0)
[2025-04-04 04:20] LABS: Blood Urea Nitrogen 31 mg/dl (7-17); Calcium 9.2 mg/dl (8.4-10.2); Carbon Dioxide 20 mmol/L (22-30); Chloride 117 mmol/L (98-107); Estimated Creatinine Clearance 39 ml/min; Glucose 93 mg/dl (70-99); Potassium 3.9 mmol/L (3.5-5.1); Sodium 142 mmol/L (135-145); eGFR 33.91
[2025-04-04] MEDS: COREG 6.25 MG PO (08:21)
[2025-04-04] MEDS: LOW STRENGTH ASPIRIN 81 MG PO (08:21)
[2025-04-04] MEDS: APRESOLINE 25 MG PO (08:21)
[2025-04-04] MEDS: NORVASC 10 MG PO (08:21)
[2025-04-04] MEDS: PROTONIX 40 MG PO (08:21)
[2025-04-04] MEDS: TYLENOL 650 MG PO (08:22)
--- NOTE | 2025-04-04 08:43 | W.PN.CARDCBS ---
Addendum entered and electronically signed by Ladonna Rees PA-C 04/04/25 09:39:
d/w CT surgery. will plan to DC IV heparin and if patient remains pain free, will plan for DC today with scheduled return on 04/09/25 for CABG, avoiding strenuous activity over the weekend.
Addendum entered and electronically signed by Slade Pro MD 04/04/25 09:28:
Patient seen, interviewed and examined by me.
[ ]
Well-appearing, no acute distress
Regular rate and rhythm with normal S1 and S2, no S3 no S4. There is a grade 1/6 apical holosystolic murmur and no rubs. PMI is normally placed.
Lungs are clear to auscultation bilaterally without wheezes rales or rhonchi.
Abdomen soft nontender nondistended with normoactive bowel sounds
Extremities show trace pretibial edema bilaterally no clubbing or cyanosis.
Neurologic exam is grossly nonfocal.
Non-STEMI with multivessel coronary artery disease found on coronary angiography April 02, 2025: Multivessel coronary artery disease involving a sizable first diagonal branch, mid LAD, large obtuse marginal branch and PDA
Normal left ventricular systolic function with Echo 04/01/2025: EF 60-65%, mild cLVH, stage II diastolic dysfunction, mild MR, mod dilated LA, aortic sclerosis
CT surgical evaluation for consideration for coronary artery bypass grafting
With current medical therapy including IV heparin she is pain-free
Maintain IV heparin
Maintain aspirin 81 mg daily
Maintain carvedilol 6.25 mg twice daily
Maintain atorvastatin 80 mg daily
Not on BIJAN inhibitor/ARB due to chronic kidney disease with creatinine of 1.5-1.7
Blood pressure well-controlled on current medical therapy, continue hydralazine as well as Norvasc
Discussed with patient and with nursing staff.
All of patient's questions have been answered.
Original Note:
Today's Communication / Plan
-
CT surgery evaluation
Continue aspirin, IV heparin, statin, Coreg, hydralazine, Norvasc
Impression / Plan
-
Claims Representative: None prior to admission, initially seen by Dr. Cr
Impression:
Presented with intermittent chest pain x 1 week
NSTEMI
MV CAD by cath 04/02/25
HTN
GERD
Family h/o CAD
Echo 04/01/2025: EF 60-65%, mild cLVH, stage II diastolic dysfunction, mild MR, mod dilated LA, aortic sclerosis
Plan:
- She presented with chest pain. Ruled in for NSTEMI with peak trop 0.33. Echo with preserved EF. Underwent cardiac catheterization 04/02/2025 which revealed multivessel CAD including diagonal, LAD, OM, PDA.
- R wrist site c/d/i. reports some soreness and numbness/tingling which is improving
- CT surgery has been consulted for evaluation for CABG. patient was initially hesitant given history of stroke post CABG in her father, however now appears to be agreeable to proceed. Discussed with CT surgery. Work up underway
- She remains chest pain-free
- continue asa, IV heparin. hgb 9.8
- LDL 125. Lipitor 40mg QPM added this admission.
- BPs elevated. continue norvasc 10mg daily, Coreg 6.25 mg twice daily, hydralazine 25 mg twice daily. Outpatient HCTZ and losartan on hold at present with creatinine of 1.7, which appears to be baseline. Could consider preoperative nephrology
evaluation if desired per CT surgery
- hgbA1c 5.7%
- d/w nursing
HPI: Sydney is a 59 year old female with PMH of hypertension GERD, and family h/o CAD who presented to [facility] ER for evaluation of 1 week of intermittent chest discomfort. Discomfort has been typically waking her up at night, and she has only been
able to get relief with a hot shower. After she takes a shower for a few minutes, the pain subsides and she is able to go back to sleep. 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 Today she bent over to get a water
bottle and felt the chest discomfort coming on, so came to ER for evaluation. In ER, she was found to have elevated troponin of 0.33 and was given SL nitro, aspirin, and started on IV heparin. She is pain free currently, however given concern for
NSTEMI, cardiology consulted. She has no personal cardiac history, but does note family history in father and brother.
Progress Note - Claims Representative
Subjective
Date of Service: April 04, 2025
Denies chest pain, shortness of breath. Reports some right wrist site soreness, numbness and tingling, which overall is improving
Objective
Labs:
04/04/25 03:44
04/04/25 03:44
Labs
Hgb 9.8 g/dL (12.0-16.0) L 04/04/25 03:44
Hct 29.6 % (37.0-47.0) L 04/04/25 03:44
Plt Count 217 10^3/uL (130-400) 04/04/25 03:44
PT 16.9 Sec (11.4-14.6) H 04/01/25 15:34
INR 1.35 04/01/25 15:34
APTT 55.8 Sec (23.4-35.0) H 04/04/25 03:44
Sodium 142 mmol/L (135-145) 04/04/25 03:44
Potassium 3.9 mmol/L (3.5-5.1) 04/04/25 03:44
BUN 31 mg/dl (7-17) H 04/04/25 03:44
Creatinine 1.7 mg/dL (0.6-1.0) H 04/04/25 03:44
Glucose 93 mg/dl (70-99) 04/04/25 03:44
Troponins
04/01/25 04/01/25 04/01/25
13:09 16:15 21:16
Troponin I 0.330 H* Cancelled 0.251 H*
04/01/25 04/02/25 04/02/25
22:15 05:15 11:06
Troponin I Cancelled 0.256 H* 0.239 H*
Vital Signs and I&O:
Vital Signs
Temp Pulse Resp BP Pulse Ox
97.9 F 56 20 149/74 95
04/04/25 07:30 04/04/25 08:21 04/04/25 07:30 04/04/25 08:21 04/04/25 07:30
Vital Signs
Temp Pulse Resp BP Pulse Ox
97.9 F 56 20 149/74 95
04/04/25 07:30 04/04/25 08:21 04/04/25 07:30 04/04/25 08:21 04/04/25 07:30
Intake & Output
04/02/25 04/03/25 04/04/25 04/05/25
07:59 07:59 07:59 07:59
Intake Total 1000 / 1000 480 / 480
Balance 1000 / 1000 480 / 480
Physical Exam
Physical Exam
GEN: No distress, awake, alert, oriented x3
HEENT: supple, anicteric, mmm, eomi
LUNGS: CTA B/L, no wheezes/rales
CV: Reg, S1/S2, no murmur
ABD: soft, BS+, NT/ND
EXT: No cyanosis, clubbing, edema
NEURO: Gross non-focal
SKIN: Warm, pink, dry. No rash. R wrist site c/d/i
--- NOTE | 2025-04-04 10:33 | W.PN.UPDATE ---
Update Note
Progress Note Update
Pt seen this morning with Dr. Sanders, we discussed recommendation for CABG with her and her sister. She is amenable to proceeding with workup and planned operation. Risks and benefits were discussed in detail by Dr. Sanders, consents were signed.
Tentative OR date is Monday 04/09. I discussed case with cardiology and hospitalist. Current plan is to stop heparin, assess for recurrence of chest pain and hopefully discharge to home today & return for OR 04/09. Pt will need to meet with case
management and anesthesia regarding upcoming operation in addition to preoperative imaging studies (L palmar arch, US carotids, CT chest w/o) prior to discharge.
--- NOTE | 2025-04-04 11:12 | PTCARENOTE ---
Pt received from steward/stewardess night RN. Ox3 and appropriate. She complains of some numbness/tingling in her R thumb and index finger going down her R radial after cardiac cath. Radial cath site intact with no hematoma. She also has bruising on her L arm
from a prior IV that is causing her 3/10 pain. Will continue to monitor, MD made aware. NSR on tele, BP better controlled. Breath sounds clear on RA. Needs minimal assistance with ADL's. 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
medication changes. All questions answered. Pt currently in radiology getting US and CT scan.
--- NOTE | 2025-04-04 11:59 | W.PN.HOSP.TC ---
Today's Communication/Plan
-
Discharge planning today
Assessment / Plan
Assessment / Plan
Physical exam:
General: No acute distress
HEENT: Normocephalic, Atraumatic and Moist Mucous Membranes
Respiratory: Clear to Auscultation; Negative Wheezes, Rales or Rhonchi
Cardiac: Regular Rhythm and S1/S2, no murmurs rubs or gallops
GI: Soft, Nontender and Nondistended
Musculoskeletal: No Clubbing, No Cyanosis and No Edema
Neuro: Awake, Alert and Oriented, no gross neurological deficits
Psych: Anxious, normal judgment and insight.
A/P:
Acute NSTEMI:
Can stop heparin drip today
Cardiothoracic surgery team reached out to me and they are clearing her for discharge today and will bring her back next week probably Tuesday
Continue aspirin and statins
Cardiology consult appreciated
Discussed with sister at bedside
Cardiac catheter with multivessel CAD
CT surgery consult appreciated and workup in progress
Hypertensive urgency:
Continue her amlodipine 10 mg p.o. daily
Started on Coreg 6.25 mg twice a day and added oral hydralazine 25 mg twice a day
Hold losartan and hydrochlorothiazide due to TERELL
On IV hydralazine as needed
TERELL:
Creatinine 1.8--> down to 1.5--> 1.7
use of contrast
Unknown baseline
Avoid nephrotoxic
Check kidney ultrasound-->There is a size discrepancy between kidneys suggesting atrophy on the right, uncertain etiology. There is a small right renal cyst.
Discussed with patient about the need for nephrology evaluation--> discussed with chef head today and they will not be able to see her on time prior to discharge if happening today but will set up outpatient referral for nephrology (discussed
with Dr. Trammell who is on-call for nephrology practice today).
GERD:
Continue oral PPI
Anemia:
Hemoglobin 9.8 today
Unknown baseline
Anemia workup including iron, TIBC, ferritin, B12, folate, LFTs, reticulocyte count--> element of iron deficiency with ferritin of 11
No evidence of active bleeding but history of gastric surgery
s/p IV Iron short course
Mild hyperglycemia Prediabetes:
Hemoglobin A1c 5.7
TSH normal
DVT prophylaxis:
Currently on heparin drip
CODE STATUS:
Full code
Anticipated Discharge: Today
Subjective/Interval History
-
Date of Service: April 04, 2025
Patient denies any chest pain or shortness of breath.
Objective Data
-
Labs:
Laboratory Results
04/04/25 04/04/25 04/04/25
03:44 08:48 10:30
WBC 6.2
Hgb 9.8 L
Hct 29.6 L
Plt Count 217
PT Pending
INR Pending
APTT 55.8 H Pending
Sodium 142
Potassium 3.9
Chloride 117 H
Carbon Dioxide 20 L
BUN 31 H
Creatinine 1.7 H
Glucose 93
Calcium 9.2
Vital Signs:
Vital Signs
Temp Pulse Resp BP Pulse Ox
97.3 F 56 18 149/74 98
04/04/25 11:08 04/04/25 08:21 04/04/25 11:08 04/04/25 08:21 04/04/25 11:08
I&O
04/03/25 04/04/25 04/05/25
06:59 06:59 06:59
Intake Total 1000 / 1000 480 / 480
Balance 1000 / 1000 480 / 480
--- NOTE | 2025-04-04 11:59 | W.DCSUMMARY ---
Discharge Summary
Discharge Data
Date of Admission: 04/01/25
Date of Discharge: 04/04/25
Total time spent discharging patient (in min): 34
-
Pending Results: No
Hospital Course
Patient is 59 years old female history of hypertension, GERD, obesity status post gastric sleeve in the past, admitted to the hospital with chest pain and elevated troponin consistent with acute non-STEMI. Cardiology consulted. She was treated
with IV heparin drip and ACS protocol. Transthoracic echo shows EF 60 to 65% and mild mitral regurgitation and trace aortic insufficiency tricuspid regurgitation pulmonary insufficiency. She was taken to cardiac catheterization on 04/02 and it
revealed multivessel coronary artery disease. CT surgery consulted and it was recommended bypass surgery. After discussion with patient this will be performed as outpatient and CT surgery cleared her for discharge today. She also had TERELL on CKD
and she was given IV fluids but she also received contrast from cardiac cath studies and also CT studies. She also had abnormal ultrasound of her kidneys. We asked to avoid nephrotoxic and follow-up renal function closely and we recommended to
have nephrology evaluation. Patient would like to go home today and would like to have nephrology evaluate her as outpatient. I reached out to nephrology and they would not be able to see her today anyway so they are okay seeing her as outpatient
(discussed with Dr. Trammell). Her blood pressure was also elevated upon admission and her antihypertensive regimen has been adjusted and her blood pressure has been much improved. Patient otherwise remained chest pain-free and she has been
cleared by cardiology and CT surgery for discharge and she will be brought back again for CABG as outpatient next week. She will be discharged in stable condition today.
Discharge duration: 34 minutes
Discharge Plan
-
Patient Disposition: Home (Routine Discharge)
Discharge Diagnosis/Procedures: Acute non-ST elevation myocardial infarction. Multivessel coronary artery disease. Hypertensive urgency. Acute kidney injury on chronic kidney disease.
Diet: Low Cholesterol
Activity: As tolerated
Driving Restrictions: As prior to admission
Blood Work: Please PCP to order CBC, BMP within 1 week
Referrals:
Naveen Trammell DO [Active, Nephrology] - in one to two weeks
Everette Vergara MD [Active, Cardiology] - in one to two weeks
Bc Lemus MD [Family Provider, Family Practice] - in less than 1 week
Additional Discharge Medication Instructions: STOP losartan and hydrochlorothiazide
Prescriptions:
New
atorvastatin 80 mg Tablet
80 mg PO QPM 30 Days Qty: 30 0RF
carvedilol 6.25 mg Tablet
6.25 mg PO BID 30 Days Qty: 60 0RF
hydralazine 25 mg Tablet
25 mg PO BID 30 Days Qty: 60 0RF
aspirin 81 mg Tablet,Chewable
81 mg PO DAILY 30 Days Qty: 30 0RF
Continued
cyanocobalamin (vitamin B-12) 1,000 mcg Tablet
1,000 mcg PO DAILY
therapeutic multivitamin Tablet
1 tab PO DAILY
omeprazole 40 mg Capsule,Delayed Release(Dr/Ec)
40 mg PO DAILY
amlodipine [Norvasc] 10 mg Tablet
10 mg PO DAILY
Discontinued
ibuprofen [Advil] 200 mg Tablet
400 mg PO Q8HPRN PRN (Reason: mild pain)
losartan 100 mg Tablet
100 mg PO DAILY
hydrochlorothiazide 12.5 mg Tablet
12.5 mg PO DAILY
Discharge Orders:
Discharge Patient (As Directed); Ordered 04/04/25
Ordered By: Bethel Garcia
Care Plan Goals
Care Plan Goals:
Problem: Readiness for enhanced knowledge related to diagnosis and treatment plan
Goal: Understand your diagnosis and treatment plan needs, including medications if applicable.
Instructions: Know your diagnosis, underlying causes and treatment plan options, including medications if applicable. Consult with your health care team to learn about your diagnosis and treatment plan, including medications if applicable.
Discharge Date and Time
Discharge Date/Time: 04/04/25 19:20
Print Language: SPANISH
--- NOTE | 2025-04-04 12:24 | CM ---
Per CT PA, plan is for CABG on . Plan will be for DC to home with return admission next week for surgery.
Attempted to meet w patient at bedside to complete pre-op teacher; patient not in her room. Will re-attempt this afternoon.
[2025-04-04 13:00] LABS: APTT 56.2 Sec (23.4-35.0)
[2025-04-04 13:08] LABS: INR 1.27; PT 16.4 Sec (11.4-14.6)
--- NOTE | 2025-04-04 15:51 | CM ---
Met w/ patient at bedside to complete pre-op teaching. Plan for patient to return to 04/09 for CABG.
Reviewed initial assessment. Pt. resides w/ sig. other in a private, [address] w/ [address].
Functionally, patient is indep. at baseline w/ ADLs, mobility without the use of any assisted device. Pt. works full-time as [employer].
Pt. has no medical insurance. She will not qualify for MA per [facility]. Pt. is aware of this.
We reviewed pre and post op routines.
Soap, shower instructions and Cardiac Surg. booklet provided.
We reviewed post op restrictions to include lifting, driving, flying and sternal precautions.
Discussed post op MD appointments, Cardiac Rehab and visit from CT Transitional Care RN.
Plan for CT Surg., 04/09.
Antic. DC plan is for home w/ CT Transitional Care RN. Family to assist PRN upon DC. She has plan in place.
CM to follow.
== END 2025-04-04 19:20 | disposition home or self-care (01) | DRG 281 ==
LOC: IVU 16:21
PROVIDERS: Emergency Medicine; Internal Medicine Cardiovascular Disease; Physician Assistant Medical; ADMITTING PHYSICIAN Hospitalist; CONSULT PHYSICIAN Thoracic Surgery (Cardiothoracic Vascular Surgery); EMERGENCY PHYSICIAN Student in an Organized Health Care Education/Training Program; FAMILY PHYSICIAN Family Medicine; OTHER PHYSICIAN Internal Medicine Interventional Cardiology
PROC: B2151ZZ Fluoroscopy of Left Heart using Low Osmolar Contrast (ICD-10-PCS; 2025-04-02)
PROC: 4A023N7 Measurement of Cardiac Sampling and Pressure, Left Heart, Percutaneous Approach (ICD-10-PCS; 2025-04-02)
PROC: B2111ZZ Fluoroscopy of Multiple Coronary Arteries using Low Osmolar Contrast (ICD-10-PCS; 2025-04-02)
DX: I21.4 Non-ST elevation (NSTEMI) myocardial infarction (principal); N17.9 Acute kidney failure, unspecified; I25.10 Atherosclerotic heart disease of native coronary artery without angina pectoris; I16.0 Hypertensive urgency; N18.9 Chronic kidney disease, unspecified; I13.10 Hypertensive heart and chronic kidney disease without heart failure, with stage 1 through stage 4 chronic kidney disease, or unspecified chronic kidney disease; K21.9 Gastro-esophageal reflux disease without esophagitis; Z98.84 Bariatric surgery status; E66.9 Obesity, unspecified; Z68.31 Body mass index [BMI] 31.0-31.9, adult; D64.9 Anemia, unspecified; G47.33 Obstructive sleep apnea (adult) (pediatric); Z79.899 Other long term (current) drug therapy; Z82.49 Family history of ischemic heart disease and other diseases of the circulatory system
CPT/HCPCS: 71045; 71250; 76775; 80048; 80053; 80061; 82248; 82607; 82728; 82746; 83036; 83540; 83550; 84443; 84484; 85025; 85027; 85045; 85610; 85730; 93005; 93306; 93458; 93880; 93923; 93931; 99152; 99153; 99291; C1894; J2916; Q9967

== ENCOUNTER 2025-04-09 04:55 | Inpatient (IN) | payer OTHER, SELFPAY ==
--- NOTE | 2025-04-04 15:57 | CM ---
Met w/ patient at bedside to complete pre-op teaching. Plan for patient to return to 04/09 for CABG.
Reviewed initial assessment. Pt. resides w/ sig. other in a private, [address] w/ [address].
Functionally, patient is indep. at baseline w/ ADLs, mobility without the use of any assisted device. Pt. works full-time as [employer].
Pt. has no medical insurance. She will not qualify for MA per [facility]. Pt. is aware of this.
We reviewed pre and post op routines.
Soap, shower instructions and Cardiac Surg. booklet provided.
We reviewed post op restrictions to include lifting, driving, flying and sternal precautions.
Discussed post op MD appointments, Cardiac Rehab and visit from CT Transitional Care RN.
Plan for CT Surg., 04/09.
Antic. DC plan is for home w/ CT Transitional Care RN. Family to assist PRN upon DC. She has plan in place.
CM to follow.
[2025-04-09 05:21] VITALS: BMI 32.3
[2025-04-09] MEDS: MAGNESIUM OXIDE 500 MG PO (05:39)
[2025-04-09] MEDS: BACTROBAN 2% OINTMENT 1 APPLIC NASAL ×2 (05:39→20:22)
[2025-04-09] MEDS: LOPRESSOR 25 MG PO (05:39)
[2025-04-09] MEDS: PROTONIX 40 MG PO (05:39)
--- NOTE | 2025-04-09 05:54 | PTCARENOTE ---
Patient admitted to CVICU. 2x CHG shower confirmed. Medication reconciliation performed. Admission questions asked. Medications administered. Patient clipped and washed w/ CHG. Labs obtained. Awaiting CVOR.
--- NOTE | 2025-04-09 06:07 | W.CVOR.SURPR ---
CVOR Surgeon Immed Pre Op
-
I have examined this patient prior to performance of the scheduled procedure.
The patient's condition is unchanged from the time of the dictated/written History and
Physical and the patient is able to undergo the scheduled procedure.
CABG x 4 + [facility] E
[2025-04-09 06:10] LABS: Blood Urea Nitrogen 31 mg/dl (7-17); Calcium 9.2 mg/dl (8.4-10.2); Carbon Dioxide 22 mmol/L (22-30); Chloride 114 mmol/L (98-107); Estimated Creatinine Clearance 42 ml/min; Glucose 100 mg/dl (70-99); Potassium 3.8 mmol/L (3.5-5.1); Sodium 142 mmol/L (135-145); eGFR 36.47
[2025-04-09 07:05] LABS: ACT+ - POC 137 Seconds (82-134)
[2025-04-09 07:18] LABS: Urine Character Clear (Clear)
[2025-04-09 07:28] LABS: Urine White Cell 0-2 /HPF (0-5)
[2025-04-09 09:05] LABS: ACT+ - POC 873 Seconds (82-134)
[2025-04-09 09:08] LABS: B.E. - POC -3.9 mmol/L; Glucose - POC 99 mg/dl (70-99); HCO3 - POC 22 mmol/L (21-28); Hematocrit - POC 30 % PCV (37-47); Hemodilution- POC No; Hemoglobin Calculated - POC 10.1; Ionized Calcium - POC 1.24 mmol/L (1.15-1.33); Lactate - POC 0.37 mmol/L (0.36-0.75); O2 Saturation %Calculated-POC 99.7 % (94-98); PCO2 - POC 40 mmHg (35-48); PO2 - POC 221 mmHg (83-108); Potassium - POC 3.7 mmol/L (3.5-5.1); Sodium - POC 143 mmol/L (136-145); Specimen Type - POC Arterial; pH - POC 7.34 (7.35-7.45)
[2025-04-09 09:50] LABS: ACT+ - POC 992 Seconds (82-134)
[2025-04-09 09:58] LABS: B.E. - POC -0.2 mmol/L; Glucose - POC 135 mg/dl (70-99); HCO3 - POC 24 mmol/L (21-28); Hematocrit - POC 23 % PCV (37-47); Hemodilution- POC Yes; Hemoglobin Calculated - POC 7.8; Ionized Calcium - POC 1.10 mmol/L (1.15-1.33); Lactate - POC 0.50 mmol/L (0.36-0.75); O2 Saturation %Calculated-POC 99.9 % (94-98); PCO2 - POC 36 mmHg (35-48); PO2 - POC 301 mmHg (83-108); POC Comment CPB; Potassium - POC 4.5 mmol/L (3.5-5.1); Sodium - POC 142 mmol/L (136-145); Specimen Type - POC Arterial; pH - POC 7.43 (7.35-7.45)
[2025-04-09 10:13] LABS: ACT+ - POC 786 Seconds (82-134)
[2025-04-09 10:33] LABS: B.E. - POC -0.6 mmol/L; Glucose - POC 166 mg/dl (70-99); HCO3 - POC 25 mmol/L (21-28); Hematocrit - POC 24 % PCV (37-47); Hemodilution- POC Yes; Hemoglobin Calculated - POC 8.3; Ionized Calcium - POC 1.11 mmol/L (1.15-1.33); Lactate - POC 0.35 mmol/L (0.36-0.75); O2 Saturation %Calculated-POC 99.9 % (94-98); PCO2 - POC 44 mmHg (35-48); PO2 - POC 301 mmHg (83-108); POC Comment WARM; Potassium - POC 4.8 mmol/L (3.5-5.1); Sodium - POC 145 mmol/L (136-145); Specimen Type - POC Arterial; pH - POC 7.36 (7.35-7.45)
--- NOTE | 2025-04-09 10:33 | CM ---
Chart reviewed. Patient is in the OR today. Patient is independent of ADLS, lives with her significant other in a [address], 0 [address]ICE, 0 DME. Plan is for the patient to return home CT Transitional RN. CM to follow
[2025-04-09 10:37] LABS: ACT+ - POC 145 Seconds (82-134)
[2025-04-09 11:12] LABS: B.E. - POC -3.6 mmol/L; Glucose - POC 130 mg/dl (70-99); HCO3 - POC 23 mmol/L (21-28); Hematocrit - POC 22 % PCV (37-47); Hemodilution- POC Yes; Hemoglobin Calculated - POC 7.5; Ionized Calcium - POC 1.45 mmol/L (1.15-1.33); Lactate - POC 0.93 mmol/L (0.36-0.75); O2 Saturation %Calculated-POC 99.9 % (94-98); PCO2 - POC 47 mmHg (35-48); PO2 - POC 400 mmHg (83-108); POC Comment POST; Potassium - POC 4.0 mmol/L (3.5-5.1); Sodium - POC 144 mmol/L (136-145); Specimen Type - POC Arterial; pH - POC 7.30 (7.35-7.45)
--- NOTE | 2025-04-09 11:19 | W.PN.CT.SURG ---
CT Surgery Operative Note
-
CARDIAC SURGERY OPERATIVE REPORT
Preoperative Diagnosis: Multivessel Coronary Artery Disease with proximal LAD involvement and NSTEMI
Postoperative Diagnosis: Same
Procedure(s) Performed:
1. Standard Sternotomy with Aortic and Right Atrial Cannulation
2. Internal Mammary Artery Harvesting, Left
3. Multi arterial coronary artery bypass grafting x 4 (In situ SALEEM to LAD, Ao to RSVG to high diagonal, proximal RSVG of Diag to Radial to OM, Ao to RSVG to LPDA)
4. Endoscopic vein and artery harvesting of right lower extremity and left radial, respectively
5. Transesophageal echocardiography
6. Placement of Temporary Ventricular Pacing Wires
7. Left atrial appendage exclusion (35 mm clip, serial #[id number])
Date of Surgery:
Comorbidities:
1. NSTEMI with multivessel coronary disease
2. Hypertension
3. Hyperlipidemia
4. History of gastric bypass/gastric sleeve
5. GERD
6. Acute kidney injury
Attending Surgeon: Bc Sanders MD, MS
Assistants: Marcella Huang PA-C (present and necessary to horticultural nursery assistant, endoscopic left radial artery harvest, retraction, suction, exposure, suture management, and wound closure under my direction), Margarette Mendez PA-C (endo vein harvest), and Bill Horner,
PGY-2 (Cardiac Surgery Resident)
Anesthesiology: Edilberto Max MD and Pearl De La Rosa CRNA
Scrub and Circulating RNs: Jacinto Ramirez, DONI, Essie Galvan RN
Global Chief Experience Officer: Dayan Ybarra CCP
Anesthesia: GETA
EBL: per perfusion records
Products: 1 prbc and 250cc of cellsaver
CPB Time: 88 minutes
Aortic Cross Clamp Time: 77 minutes
Indication(s) for Procedures: This is a 59-year-old female who was found to have multivessel coronary disease. She was recently admitted as an NSTEMI however it was very low-grade troponins and collectively we felt she was able to be discharged and
return for her surgery. She is offered multivessel revascularization and given her age and disease lesion pattern, we opted to use multi arterial grafts.
Conduit(s) Quality:
SALEEM -excellent, skeletonized
RSVG -good, there was some large branches however overall there is minimal varicosities and thickening of the vessel
Left radial -excellent, smaller caliber in size but overall good quality vessel with no dissections, we had to grafted off the proximal portion of the vein to the diagonal due to the size discrepancy in length discrepancy
Target(s) Quality:
LPDA -very small vessel, accommodated 1 mm probe, mean flow in this vessel was 11 cc a minute with a high pulse index of 12.5 which makes sense given the size of the vessel
OM -excellent target, the radial graft was grafted here, the mean flow in the radial itself to this target was 45 cc a minute with a pulse index of 2.6
High diagonal -excellent target, the vein portion after the radial Y to this had a mean flow of 50 cc a minute with a pulse index of 2.3
The vein leading into the Y of the radial graft in the diagonal had a mean flow 102 cc a minute with a pulse index of 2.3
LAD -excellent target, the mean flow in this vessel was 40 cc a minute with a pulse index of 4.4, there was excellent visual flow in the LAD distally upon removal of the bulldog clamp and also evidence of warming and pinking up of the myocardium
Findings: Her left ventricular ejection fraction preoperatively was 60% with no significant regional wall motion abnormalities. There was a small PFO with very minimal flow that was not addressed. Following surgery EF remained the same at 60% with
no new regional wall motion abnormalities. Her EKG was isoelectric. Flow and all grafts were tested with the Transonic flow probe device and yielded appropriate flows. The SALEEM was harvested in a skeletonized fashion. Due to a length discrepancy
as well as the size discrepancy, the radial graft at the proximal portion was taken off the proximal segment of the vein graft leading to the high diagonal vessel. Following bypass grafting, test dose cardioplegia was given down each distal and
confirmed patency and hemostasis. Due to hemodilution, she required 1 unit of PRBCs and also we were able to give her back 250 cc of scavenged blood from the field in the form of Cell Saver. No inotropic support was required. She was in a sinus
rhythm following surgery. Left atrial appendage was verified to be free of any thrombus or debris preoperatively and found to be totally occluded postoperatively.
Description of Procedure: The patient was taken to the operating room. Their identity and procedure to be performed were verified and they were positioned supine on the operating table. Induction via general anesthesia with endotracheal intubation
was performed and central venous access and arterial monitoring were inserted. A preoperative transesophageal echocardiogram was performed to assess cardiac function and valvular function. The patient was then prepped and draped from chin to feet in
a sterile fashion. A preoperative time-out was performed with all members of the team present. A midline chest incision was performed along with median sternotomy. Simultaneous endoscopic access of the left radial and right lower extremity for
radial artery and saphenous vein harvest was obtained along with administration of an initial 5,000 units of IV heparin. A RulTract sternal retractor was positioned to exposure the left internal mammary bed. The mammary was harvested and found to
have good flow. A bulldog clamp was applied to the distal end of the mammary after dividing it. It was wrapped in a papaverine soaked RayTec and replaced back into the left hemithorax. The RulTract was exchanged for a median sternal retractor. The
innominate vein was isolated. Full heparinization was given (a total of 55,000 units). We created a pericardial well. The aortic cannulation site was chosen where it was soft, pliable, and free of calcium. Cannulation was performed with an arterial
cannula in the ascending aorta and a triple-stage venous cannula through the right atrial appendage. The arterial cannula line had an appropriate bounce and correlating pressures with test dosing. Next, a root vent/antegrade cannula was inserted
into the ascending aorta. The ACT was confirmed to be over 400 and retrograde autologous priming was performed before commencing cardiopulmonary bypass. The pulmonary artery was away from the aorta to facilitate a clamp site. The aortic
cross-clamp was placed after decreasing the flow on the bypass and mean arterial pressure. A total of 1.2L initial dose of antegrade Del-Nido cardioplegia solution was given and planned for re-dosing every 75 minutes as necessary. There was rapid
electro-mechanical arrest of the heart at 400 cc of cardioplegia. The left ventricle was observed for distention on echocardiogram and manual palpation. Cold slush was placed into a sponge and topically on the RV while we systemically cooled to 34
degrees centigrade.
I positioned the heart to expose the distal left posterior descending artery. A petersburg blade was used to expose the coronary and perform the arteriotomy. Coronary Sweeney scissors were used to enlarge the incision. The saphenous vein was trimmed and
beveled to an appropriate size. The distal anastomosis was performed using 7-0 prolene in an end-to-side fashion. Antegrade cardioplegia was administered into the graft. Appropriate hemostasis and flow were confirmed. The graft was measured for
length to the aorta and cut. A suitable site on the obtuse marginal was chosen. We dissected and prepared the distal target in a similar fashion. An end-to-side anastomosis was created with a 7-0 prolene using the radial artery graft. Antegrade
cardioplegia was administered into the graft with the aid of an Angiocath. Appropriate hemostasis and flow were confirmed. The graft was measured for length to the aorta and found to be short and so we anticipated performing a composite radial to
vein graft. The high diagonal vessel was then identified and prepared in a similar fashion's. A small coronary tree artery was then created and the vein graft was then beveled at the distal end. An end-to-side anastomosis was created with 7-0
Prolene in a running fashion. Testing of flow down the graft with antegrade cardioplegia demonstrated an appropriate mean flow with good hemostasis. A suitable target on the mid/distal left anterior descending was identified. We dissected and
prepared the distal target in a similar fashion. We retrieved the SALEEM from the chest and created a pericardial opening while being cognizant of the phrenic nerve to facilitate the course of the mammary. The underbelly of the mammary incised and
enlarged with Sweeney scissors. We verified orientation and length of the THIEN and found brisk flow. An zzuz-em-aobz anastomosis was created with a 7-0 prolene. We temporarily released the bulldog clamp on the mammary to inspect flow. Perfusion to the
LAD territory was visualized and hemostasis was confirmed. The bull clamp was replaced on the mammary. The heart was filled and the root was distended with antegrade cardioplegia to make final assessment of graft length and orientation. We created 2
aortotomies using a #11 blade then a 4.0mm aortic punch. The proximal anastomoses were created in an end-to-side fashion using 6-0 prolene. At the the same time, we re-warmed to 36.5 degrees centigrade. The cephalad surface of the vein graft to the
high diagonal was then incised and end-to-side anastomosis was created for the proximal radial graft using 7-0 Prolene in a running fashion. The bulldog clamp was removed from the mammary. Temporary bipolar ventricular pacing wires were placed on
the base of the right ventricle. The patient was placed in a Trendelenburg position and flows on bypass were lowered. The aortic cross clamp was removed and flows were slowly brought back up. All bypass grafts were inspected and were free from
kinking or twisting. The distal and proximal anastomoses appeared hemostatic. Once transesophageal echocardiography appeared satisfactory for de-airing, the flows were temporarily lowered for root vent removal. After verifying acceptable
parameters, we initiated weaning from cardiopulmonary bypass. Once we were off cardiopulmonary bypass, the venous cannula was clamped and removed. A test dose of protamine was administered and the patient was monitored for any adverse reaction
before resuming protamine. Once half of the protamine dose was delivered, pump suckers were turned off and the systolic blood pressure was lowered for aortic decannulation. The aortic cannula was removed and pursestrings were tied down. All
cannulation sites were oversewn with a 4-0 prolene. The mammary bed was inspected and hemostasis was confirmed. Once the mediastinum was hemostatic, 19Fr Umair drain was placed in the left pleural cavity and two 24Fr Umair drains were placed within
the pericardium. The sternum was approximated with 4 #7 single and 3 #8 double stainless steel wires. Fascia was approximated with #1 vicryl suture. The subcutaneous, dermis and epidermis were closed in layers in a running fashion. The skin wound
was cleansed and dressed.
All instrument, sponge, and needle counts were confirmed to be correct x 2 at the end of the operation. The patient was transferred to the cardiac intensive care unit in critical but stable condition.
I, Dr. Bc Sanders, was present, scrubbed for, and performed all critical elements of this procedure.
Bc Sanders MD, MS
Cardiothoracic Surgeon
[facility]
This operative dictation was created using the WonderHowTo dictation system. Please excuse any grammatical, typographical, or 'sound alike' errors
[2025-04-09 11:49] LABS: Glucose - Point of Care 102 mg/dl (70-99)
[2025-04-09] MEDS: NEURONTIN PO (11:55)
[2025-04-09] MEDS: NSS 500 IV (11:55)
[2025-04-09] MEDS: ANCEF 10 IV ×2 (11:55)
[2025-04-09] MEDS: LR 250 ML IV ×3 (11:55→16:18)
[2025-04-09 11:57] LABS: Hematocrit 29.9 % (37.0-47.0); Hemoglobin 10.1 g/dL (12.0-16.0); Platelet Count 144 10^3/uL (130-400)
[2025-04-09 12:01] LABS: B.E. -4.9 mmol/L; HCO3 20.6 mmol/L (21-28); O2 Saturation % 99.0 % (94-98); PCO2 39 mmHg (32-35); PO2 99 mmHg (83-108); Potassium 4.1 mMOL/L (3.5-5.1); Sodium 140 mMOL/L (136-145)
[2025-04-09 12:07] LABS: B.E. - POC -0.0 mmol/L; Glucose - POC 97 mg/dl (70-99); HCO3 - POC 24 mmol/L (21-28); Hematocrit - POC 23 % PCV (37-47); Hemodilution- POC Yes; Hemoglobin Calculated - POC 7.8; Ionized Calcium - POC 1.06 mmol/L (1.15-1.33); Lactate - POC < 0.30 mmol/L (0.36-0.75); O2 Saturation %Calculated-POC 100.0 % (94-98); PCO2 - POC 36 mmHg (35-48); PO2 - POC 451 mmHg (83-108); POC Comment CPB; Potassium - POC 4.9 mmol/L (3.5-5.1); Sodium - POC 143 mmol/L (136-145); Specimen Type - POC Arterial; pH - POC 7.44 (7.35-7.45)
[2025-04-09 12:14] LABS: INR 2.28; PT 25.2 Sec (11.4-14.6)
[2025-04-09 12:15] LABS: APTT 34.3 Sec (23.4-35.0)
[2025-04-09] MEDS: SODIUM BICARBONATE 50 MEQ IV ×2 (12:21→20:05)
--- NOTE | 2025-04-09 12:23 | W.PN.UPDATE ---
Addendum entered and electronically signed by LUPILLO Pro 04/09/25 12:58:
1 PRBC intra-op
Original Note:
Update Note
Progress Note Update
59 year old female electively admitted 04/08 for CABG. Recently admitted for chest pain/NSTEMI 04/02/25.
IV fluids: 1200
U.O.:� 400
Blood:� none
Wires:� V-wires
Drips: Levo @ 4, Cardene @ 2.5, Insulin, Precedex
�
NEURO: sedated, pupils +2mm B/L
RESP: #8OT @24cm> 500/60%/13/02. Lungs clear B/L. 2 mediastinal (40cc on arrival) and L pleural (10cc on arrival) chest tubes to -20cm suction. Sanguineous drainage
CV: RRR +S1, S2, no S3, no�rub, no murmur. Dermabond to median sternotomy. RIJ w/Slik
ABD: round, soft, no BS
EXT: no edema, +2/4 DP pulses B/L, no femoral bruit, RLE BIJAN wrap intact
: Velez with clear yellow urine
�
A/P: POD #0 s/p CABG x 4 (SALEEM to LAD, SVG to high diagonal, SVG of Diag & Radial Y graft to OM, SVG to LPDA), left atrial appendage clip#35mm clip
KELLIE: EF�60%, AV 14/7mmHg
- wean and extubate
# CAD
- will require ASA, Plavix, statin
- currently SB>Beta-andrey as HR permits
# Carotid stenosis (GÓMEZ 5069%; LICA >70%)
- ASA, Plavix
�
# acute surgical blood loss anemia-expected
- trend CBC
�
# Class I obesity (BMI 32) w/ hx gastric sleeve
- slow progress with diet
�
# GERD
- Protonix in place of Omeprazole while on Plavix
[2025-04-09 12:30] LABS: Blood Urea Nitrogen 29 mg/dl (7-17); Estimated Creatinine Clearance 48 ml/min; Glucose 105 mg/dl (70-99)
[2025-04-09 12:37] LABS: Magnesium 2.9 mg/dl (1.6-2.3)
--- NOTE | 2025-04-09 12:45 | PTCARENOTE ---
Patient received from CVOR s/p CABG x 4/LAAL. RIJ Cordis w/SLIC/CVP, R radial arterial lines present - leveled, flushed, and calibrated w/good waveforms returned. SB via cm, SaO2 @ 97% on ventilator, titrating FiO2 as able. Epicardial V-wire to
pulse generator - off, tested in CVOR per surgeon. Mediastinal chest tubes x 2, Y-connected to one pleurevac, L pleural chest tube to separate collection chamber - both placed to -20cm suction w/no air leaks noted. Velez catheter to gravity. All
procedural sites stable. Labs drawn, EKG performed, pcxr obtained. CADE Nhan updated, to bedside. See work list for full assessment, interventions performed, and intravenous infusion rates and titrations.
[2025-04-09 12:46] VITALS: BP 98/58
[2025-04-09 13:01] LABS: Glucose - Point of Care 142 mg/dl (70-99)
[2025-04-09] MEDS: TYLENOL PO (13:10)
[2025-04-09] MEDS: OFIRMEV 100 IV (13:11)
--- NOTE | 2025-04-09 13:50 | CON.INTV ---
Consultation
Consultation Request
Date/Time Consultation Requested: 04/09
Date/Time Consultation Performed: 04/09
Reason for Consultation: Critical care
Medical History
-
History of Present Illness:
History obtained from the chart as patient is currently intubated and sedated. 59-year-old female with history of hypertension, obesity with gastric sleeve surgery in the past, recently hospitalized 04/04/2025, discharged after acute PR, found to
have multivessel coronary disease per catheterization 04/02. Patient was recommended for bypass surgery. She underwent bypass surgery 04/09 without complication. She received 1 unit of blood intraoperatively, currently on norepinephrine, Cardene
intermittently. We are asked to help from critical care standpoint 04/09/2025
.
PMH coronary disease, hypertension, history of renal insufficiency, history of sleep apnea, untreated. History of gastric sleeve surgery, right knee surgery
Past Medical History
Past Medical History: None (See above)
Past Surgical History: None (See above)
Social History
Tobacco: Non-smoker
Alcohol: Occasional
Personal:
Living: With Family
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
Family History
Family History: Other (Father from perioperative stroke, history of coronary disease)
Allergies / Home Medications
Allergies
Allergy/AdvReac Type Severity Reaction Status Date / Time
No Known Allergies Allergy Verified 04/01/25 18:28
Home Medications
�Medication �Instructions �Recorded �Confirmed �Last Taken �Type
amlodipine 10 mg tablet (Norvasc) 10 mg PO DAILY 04/01/25 04/09/25 7 Days Ago History
~03/25/25
cyanocobalamin (vitamin B-12) 1,000 mcg PO DAILY 04/01/25 04/09/25 04/08/25 08:00 History
1,000 mcg tablet
omeprazole 40 mg capsule,delayed 40 mg PO DAILY 04/01/25 04/09/25 04/08/25 08:00 History
release
therapeutic multivitamin 1 tab PO DAILY 04/01/25 04/09/25 04/08/25 08:00 History
aspirin 81 mg chewable tablet 81 mg PO DAILY 30 days #30 tabs 04/04/25 04/09/25 04/08/25 08:00 Rx
atorvastatin 80 mg tablet 80 mg PO QPM 30 days #30 tabs 04/04/25 04/09/25 04/08/25 19:00 Rx
carvedilol 6.25 mg tablet 6.25 mg PO BID 30 days #60 tabs 04/04/25 04/09/25 04/08/25 19:00 Rx
hydralazine 25 mg tablet 25 mg PO BID 30 days #60 tabs 04/04/25 04/09/25 04/08/25 19:00 Rx
Review of Systems
-
Unable to Obtain full review of systems at this time due to: Acuity and Patient Intubation
Vitals / Labs / Diagnostic Testing
Vital Signs
Temp Pulse Resp BP Pulse Ox
96.2 F L 58 14 98/58 96
04/09/25 13:00 04/09/25 13:02 04/09/25 13:02 04/09/25 12:46 04/09/25 13:02
Lab Data
04/09/25 11:47
Laboratory Results
04/09/25
11:47
PT 25.2 H
INR 2.28
APTT 34.3
pH 7.33 L
pCO2 39 H
pO2 99
HCO3 20.6 L
O2 Delivery Level
Diagnostic Testing:
Physical Exam
-
HEENT: Normocephalic and Other (Right IJ, right upper extremity)
Cardiovascular: S1/S2, Regular Rhythm, Murmur (n), Peripheral Edema (n) and Other ( left upper extremity manage, right lower extremity bandage)
Respiratory: Wheeze (n), Rales (n), Rhonchi (n) and Non-Labored Respirations
GI: Soft and Non Distended
Neurology: Other (Sedated, being weaned)
Skin: Other (No rash) and Other (Chest tube in place)
General: Comfortable
Assessment
-
59-year-old female with multivessel coronary disease status post chest pain, back pain hospitalized 04/02/2025, currently status post sternotomy with CABG x 4, left atrial appendage exclusion, temporary V pacing wires. Patient received 1 unit of
blood intraoperatively, currently on pressors. We are asked to help from critical care standpoint 04/09/2025
S/p CABG x 4, 04/09/2025
Received 1 unit transfusion intraoperatively
S/p NSTEMI 04/02/2025
Catheterization with multivessel coronary disease
History of renal insufficiency
Postoperative anemia
Conditions present prior to admission
Hypertension/hyperlipidemia
GERD
Sleep apnea untreated
History of gastric bypass surgery, gastric sleeve
History of carotid stenosis
Plan/recommendations
At this time, patient is critically ill but remains comfortable
Currently on CPAP wean, chest exam is clear, airway pressures adequate
Postoperative chest x-ray unremarkable, minimal left basilar atelectasis
Postoperative EKG sinus bradycardia, LVH
ABG with adequate ventilation, oxygenation
Moving forward
Continue with management per CT surgery
Anticipate extubation later today
History of sleep apnea noted, head of bed elevated, follow closely with sedation, narcotics
Follow hemoglobin
Chest tube output minimal
Patient being followed by cardiology, recent hospital stay reviewed
History of vascular disease noted, plan for treatment with aspirin/Plavix/statin noted
DVT prophylaxis per protocol
Reviewed with critical care nursing
Will follow-up
TCCT 31 min
[2025-04-09 14:03] LABS: Glucose - Point of Care 145 mg/dl (70-99)
[2025-04-09 14:41] LABS: ACT+ - POC > 1003 Seconds (82-134)
[2025-04-09 14:43] LABS: B.E. - POC -4.5 mmol/L; Blood Urea Nitrogen - POC 28 mg/dl (3-120); Chloride - POC 111 mmol/L (96-111); Creatinine - POC 1.56 mg/dl (0.3-1.0); Glucose - POC 139 mg/dl (70-99); HCO3 - POC 21 mmol/L (21-28); Hematocrit - POC 30 % PCV (37-47); Hemodilution- POC Yes; Hemoglobin Calculated - POC 10.1; Ionized Calcium - POC 1.21 mmol/L (1.15-1.33); Lactate - POC 1.04 mmol/L (0.36-0.75); O2 Saturation %Calculated-POC 95.3 % (94-98); PCO2 - POC 41 mmHg (35-48); PO2 - POC 83 mmHg (83-108); Potassium - POC 3.8 mmol/L (3.5-5.1); Sodium - POC 143 mmol/L (136-145); Specimen Type - POC Arterial; pH - POC 7.32 (7.35-7.45)
[2025-04-09] MEDS: KCL 50 IV (14:44)
[2025-04-09] MEDS: DILAUDID 0.25 MG IV ×3 (14:58→22:20)
[2025-04-09 15:05] LABS: Glucose - Point of Care 133 mg/dl (70-99)
--- NOTE | 2025-04-09 15:05 | PTCARENOTE ---
Patient displayed overbreathing ventilator. CPAP wean initiated. No apnea noted, good TV obtained. EPOC performed, results conveyed to CADE. Patient extubated to 6lnc, SaO2 @ 98%. Patient tolerated well.
[2025-04-09] MEDS: ROXICODONE 5 MG PO ×2 (15:14→20:18)
[2025-04-09 15:43] LABS: Hematocrit 30.1 % (37.0-47.0); Hemoglobin 10.3 g/dL (12.0-16.0); Platelet Count 183 10^3/uL (130-400)
[2025-04-09 16:06] LABS: Glucose - Point of Care 119 mg/dl (70-99)
[2025-04-09] MEDS: FLEXERIL 5 MG PO (16:08)
--- NOTE | 2025-04-09 16:08 | W.PN.CARDCBS ---
Addendum entered and electronically signed by Mounika Martin DO 04/10/25 03:33:
I saw and examined the patient.
The Glue Bone Drier's note was reviewed and I agree with the note.
Comment: Patient was seen and examined on 04/09/2025 at 6 PM. 59 year old female electively admitted 04/08 for CABG. Recently admitted for chest pain/NSTEMI 04/02/25.Reviewed prior hospitalization and received intraoperative report summary from CT
surgery. Patient extubated to nasal cannula O2. Complaining of generalized pain including chest discomfort. Significant other at bedside.
GEN: Awake complaining of generalized pain including chest pain. Nasal cannula O2. AAO x 3
HEENT: mmm
LUNGS: Poor effort. Decreased breath sounds throughout but clear.
CV: Reg, S1/S2, + rub
ABD: soft, BS+, NT/ND
EXT: trace edema
NEURO: Gross non-focal
SKIN: Sternotomy incision c/d/i. CTs in place
Plan:
-status post CABG x 4 In situ SALEEM to LAD, Ao to RSVG to high diagonal, proximal RSVG of Diag to Radial to OM, Ao to RSVG to LPDA, ROOSEVELT clip 04/09/25
-Extubated to nasal cannula O2
-on levo@3, wean as able
-Sinus rhythm on telemetry.
-Patient complaining of generalized pain including chest discomfort. She does have a slight rub and may represent some postop pericarditis. pain management discussed with CT surgery CADE
- Twelve-lead EKG reviewed by me normal sinus rhythm with LVH. No acute ischemic changes. No significant change when compared to preop EKG
-Hemoglobin 10.3, stable when compared to preop. Platelets 144
-CT surgery management per primary
-History of chronic renal insufficiency with baseline creatinine ranging from 1.4-1.8 in [facility]; creatinine today 1.4. Monitor closely.
-Suboptimal lipid profile on 04/02/2025 with LDL 125. Continue high intensity statin. Goal LDL ideally 55-60 mg/dL
-Hyperglycemia; Hemoglobin A1c 5.7% on 04/01/2025
-was on regimen of coreg 6.25mg BID, norvasc 10mg daily, hydralazine 25mg BID prior to surgery
-continue post op care
-Will follow with you
-d/w nursing
Original Note:
Today's Communication / Plan
-
continue post op care, pain mgmt
Impression / Plan
-
Primary Care Coordination Manager: initially seen by Dr. Cr
Assessment:
NSTEMI with MV CAD by cath 04/02/25 status post CABG x 4 In situ SALEEM to LAD, Ao to RSVG to high diagonal, proximal RSVG of Diag to Radial to OM, Ao to RSVG to LPDA, ROOSEVELT clip 04/09/25
HTN
GERD
Family h/o CAD
ECHO 04/01/25: EF 60 to 65%, no regional wall motion abnormalities noted, mild concentric LVH, stage II diastolic dysfunction, mild MR, moderately dilated LA, aortic sclerosis, trace AR
Plan:
-status post CABG x 4 In situ SALEEM to LAD, Ao to RSVG to high diagonal, proximal RSVG of Diag to Radial to OM, Ao to RSVG to LPDA, ROOSEVELT clip 04/09/25
-on levo@3, insulin. wean as able
-extubated.
-hgb 10.3. plan for asa, plavix
-main complaint is pain, continue pain mgmt
-EKG SB with LVH, similar to preop
-was on regimen of coreg 6.25mg BID, norvasc 10mg daily, hydralazine 25mg BID prior to surgery
-continue post op care
-d/w nursing
Progress Note - Care Coordination Manager
Subjective
Date of Service: April 09, 2025
reports pain
Objective
Labs:
04/09/25 15:32
04/09/25 11:47
Labs
Hgb 10.3 g/dL (12.0-16.0) L 04/09/25 15:32
Hct 30.1 % (37.0-47.0) L 04/09/25 15:32
Plt Count 183 10^3/uL (130-400) D 04/09/25 15:32
PT 25.2 Sec (11.4-14.6) H 04/09/25 11:47
INR 2.28 04/09/25 11:47
APTT 34.3 Sec (23.4-35.0) 04/09/25 11:47
Sodium 142 mmol/L (135-145) 04/09/25 05:22
Potassium 3.8 mmol/L (3.5-5.1) 04/09/25 05:22
BUN 29 mg/dl (7-17) H 04/09/25 11:47
Creatinine 1.4 mg/dL (0.6-1.0) H 04/09/25 11:47
Glucose 105 mg/dl (70-99) H 04/09/25 11:47
Vital Signs and I&O:
Vital Signs
Temp Pulse Resp BP Pulse Ox
98.3 F 66 15 98/58 98
04/09/25 16:00 04/09/25 16:06 04/09/25 16:00 04/09/25 12:46 04/09/25 16:06
Vital Signs
Temp Pulse Resp BP Pulse Ox
98.3 F 66 15 98/58 98
04/09/25 16:00 04/09/25 16:06 04/09/25 16:00 04/09/25 12:46 04/09/25 16:06
Intake & Output
04/07/25 04/08/25 04/09/25 04/10/25
07:59 07:59 07:59 07:59
Intake Total 864.6 / 864.6
Output Total 425 / 425
Balance 439.6 / 439.6
Physical Exam
Physical Exam
GEN: No distress, awake, but groggy. on supp O2
HEENT: supple, anicteric, mmm, eomi
LUNGS: CTA B/L, no wheezes
CV: Reg, S1/S2, + rub
ABD: soft, BS+, NT/ND
EXT: No cyanosis, clubbing, edema
NEURO: Gross non-focal
SKIN: Warm, pink, dry. No rash. Sternotomy incision c/d/i. CTs in place
[2025-04-09 16:11] VITALS: BP 99/60
[2025-04-09] MEDS: NEURONTIN 100 MG PO ×2 (16:23→20:18)
[2025-04-09] MEDS: LOW STRENGTH ASPIRIN 81 MG PO (17:01)
[2025-04-09 17:04] LABS: Glucose - Point of Care 130 mg/dl (70-99)
[2025-04-09] MEDS: ANCEF 5 IV (17:07)
[2025-04-09] MEDS: LIPITOR PO (18:06)
[2025-04-09] MEDS: ULTRAM 50 MG PO (18:18)
--- NOTE | 2025-04-09 18:28 | PTCARENOTE ---
Dr. Martin to bedside, updated to status. Telemetry reviewed.
[2025-04-09 19:00] LABS: Glucose - Point of Care 118 mg/dl (70-99)
--- NOTE | 2025-04-09 19:30 | PTCARENOTE ---
assumed care of pt from previous RN. pt A&Ox4, bedrest s/p CVOR. R IJ cordis w/ SLIC. R radial a-line. all lines leveled, zeroed, flushed. SR w/ 1st degree AVB on tele-monitor. temp epicardial v-wires, plugged into pulse generator, pulse generator
off. POX 95-97% on [address] x3 (L pleural, mediastinal x2) to -20cm wall suction, draining sanguineous drainage. abd s/n, round, obese. hypoactive BS. figueroa catheter draining clear, yellow colored urine. all surgical sites stable, CDI. PIV intact.
plan of care discussed w/ pt, pt in agreement. see worklist for complete nursing assessment, interventions, VS, and I&Os.
[2025-04-09 19:41] VITALS: BP 151/114
[2025-04-09 19:44] VITALS: BP 106/47
[2025-04-09] MEDS: CALCIUM GLUCONATE 130 MG IV (20:05)
[2025-04-09] MEDS: SENOKOT-S PO (20:15)
[2025-04-09] MEDS: TYLENOL 1000 MG PO (20:19)
[2025-04-09 21:02] LABS: Glucose - Point of Care 93 mg/dl (70-99)
[2025-04-09 22:12] VITALS: BP 95/49
[2025-04-09 23:16] LABS: Glucose - Point of Care 124 mg/dl (70-99)
[2025-04-09] MEDS: NSS 250 IV (23:18)
[2025-04-10] VITALS (35 sets, daily range): BP systolic 74–147; BP diastolic 45–125; PULSE 63–77; O2SAT 92; BMI 33.4
--- NOTE | 2025-04-10 | PTCARENOTE ---
assessment remains unchanged. CT drainage WNL. U/O <0.5ml/kg/h. CT PA aware.
[2025-04-10 01:08] LABS: Glucose - Point of Care 93 mg/dl (70-99)
[2025-04-10] MEDS: ANCEF 5 IV ×2 (01:09→08:36)
[2025-04-10 03:15] LABS: Glucose - Point of Care 101 mg/dl (70-99)
[2025-04-10] MEDS: ROXICODONE 5 MG PO (03:21)
[2025-04-10] MEDS: FLEXERIL 5 MG PO (03:21)
[2025-04-10 03:32] LABS: Hematocrit 28.4 % (37.0-47.0); Hemoglobin 9.3 g/dL (12.0-16.0); Mean Corp Hgb Conc. 32.7 g/dL (33.0-37.0); Mean Corpuscular Volume 93.1 fL (81.0-99.0); Platelet Count 208 10^3/uL (130-400); Red Cell Dist. Width 14.0 % (11.5-14.5)
[2025-04-10 03:39] LABS: INR 1.66; PT 19.8 Sec (11.4-14.6)
[2025-04-10 04:00] LABS: ALT (SGPT) 24 U/L (0-35); AST (SGOT) 26 U/L (14-36); Albumin 2.9 g/dl (3.5-5.0); Alkaline Phosphatase 55 U/L (38-126); Blood Urea Nitrogen 37 mg/dl (7-17); Calcium 9.1 mg/dl (8.4-10.2); Carbon Dioxide 19 mmol/L (22-30); Chloride 112 mmol/L (98-107); Estimated Creatinine Clearance 29 ml/min; Glucose 103 mg/dl (70-99); Magnesium 2.6 mg/dl (1.6-2.3); Potassium 4.9 mmol/L (3.5-5.1); Sodium 139 mmol/L (135-145); Total Protein 5.1 g/dl (6.3-8.2); eGFR 23.59
--- NOTE | 2025-04-10 04:00 | PTCARENOTE ---
SR on tele-monitor. POX ~96% on 2 L NC. minimal to no CT output from L pleural- CT PA aware. CT stripped by CT PA. Mediastinal CT drainage WNL. U/O <0.5ml/kg/h. CT PA aware. AM labs collected and sent. EKG performed.
[2025-04-10] MEDS: SODIUM BICARBONATE 50 MEQ IV ×2 (04:16→06:58)
[2025-04-10] MEDS: LEVOPHED 250 IV (04:26)
--- NOTE | 2025-04-10 04:26 | W.PN.CT ---
Today's Communication / Plan
-
Plan:
-No major issues overnight. Hemodynamically and neurologically intact
-Successfully extubated yesterday @ 1505
-Weaned to 1 overnight. Remains on insulin gtt per protocol
-No swan, u/o since OR: 560 mL
-Monitor TERELL 2.3, preop cr 1.4-1.8
-Monitor chest tube drainage: 2meds 195/320, L pleural 15/50
-On Norvasc for radial artery graft patency, will hold until BP improves
-Cont. current meds (ASA, Plavix, Norvasc, Lipitor, Amiodarone, Toprol XL if BP permits)
-Keep A-line, and d/c SLIC @
-Will consider keeping figueroa given TERELL
-Will transfer to tele today once off insulin gtt
-Maintain temporary PW (will likely pull tomorrow)
-Maintain cordis
-Encourage use of IS
-OOB into chair/Ambulate
Assessment / Plan
-
assessment:
-S/P Standard Sternotomy/CABG x 4 (In situ SALEEM to LAD, Ao to RSVG to high diagonal, proximal RSVG of Diag to Radial to OM, Ao to RSVG to LPDA)/Endoscopic vein and artery harvesting of right lower extremity and left radial, respectively/Left atrial
appendage exclusion (35 mm clip, serial #[id number]), by Dr. Sanders, 04/09/25, pod#1
-Multivessel CAD
-NSTEMI (0.330)
-Mild mid asc. aorta dilatation (3.5 cm)
-LVEF 60% per intraop KELLIE
-Family hx of CAD (father had CABG in his 60's)
-Hypertension
-Hyperlipidemia
-Class 1 obesity
-Prediabetes (A1C 5.7)
-History of gastric bypass/gastric sleeve
-Bilateral carotid artery stenosis
-GERD
-Renal insufficiency/ Acute kidney injury
-Anemia
-S/p Right knee surgery
-S/P gastric sleeve
-Acute postop blood loss on chronic Anemia (transfused 1u prbc)
-Acute postop atelectasis
-Acute postop hypovolemia with subsequent hypervolemia
-Acute postop hypermagnesemia
-Acute postop sinus bradycardia
-Acute postop TERELL
Discussed patient care with: Cardiology, Nursing, Respiratory Therapy, Pharmacy and Care Team
Subjective
Procedure
-S/P Standard Sternotomy/CABG x 4 (In situ SALEEM to LAD, Ao to RSVG to high diagonal, proximal RSVG of Diag to Radial to OM, Ao to RSVG to LPDA)/Endoscopic vein and artery harvesting of right lower extremity and left radial, respectively/Left atrial
appendage exclusion (35 mm clip, serial #[id number]), by Dr. Sanders, 04/09/25
-
Date of Service: April 10, 2025
Pt c/o incisional pain, otherwise feels well
Objective Data
-
Lab Results
04/10/25 03:12
04/10/25 03:12
PT 19.8 Sec (11.4-14.6) H 04/10/25 03:12
INR 1.66 04/10/25 03:12
APTT 34.3 Sec (23.4-35.0) 04/09/25 11:47
Vital Signs
Vital Signs
Temp Pulse Resp BP Pulse Ox
98.2 F 64 16 108/61 97
04/10/25 03:00 04/10/25 02:45 04/10/25 03:00 04/10/25 01:26 04/10/25 03:00
CT Intake/Output/Weight
04/09/25 04/09/25 04/10/25
06:59 18:59 06:59
Intake Total 937.6 / 1652.4 714.8 / 1652.4
Output Total 550 / 885 335 / 885
Balance 387.6 / 767.4 379.8 / 767.4
SaO2: 97 (2L)
Physical Exam
-
General: Awake, Oriented and AOx3
Cardiovascular: Regular rate & rhythm, No Murmurs, No Rub and No Gallop
Respiratory: Decreased Breath Sounds (at bases, otherwise clear )
Sternum: Stable
Incision: Clean, Dry, Intact and Dressing Intact
Extremities: Other (+trace edema)
Data Reviewed
-
Lab Results: Results Reviewed
Medications: Active Meds Reviewed
Chest X-Ray: Report Reviewed and Image Reviewed
ECG: Report Reviewed and Image Reviewed
[2025-04-10] MEDS: CALCIUM GLUCONATE 100 IV (04:37)
[2025-04-10 05:04] LABS: Glucose - Point of Care 89 mg/dl (70-99)
[2025-04-10] MEDS: TYLENOL 1000 MG PO ×3 (06:05→20:19)
[2025-04-10 06:24] LABS: B.E. -4.5 mmol/L; HCO3 22.1 mmol/L (21-28); O2 Saturation % 98.7 % (94-98); PCO2 47 mmHg (32-35); PO2 96 mmHg (83-108)
--- NOTE | 2025-04-10 06:27 | W.PN.INTV ---
Today's Communication / Plan
Recommendations
Incentive spirometry, out of bed to chair as able
Remains on insulin drip, being weaned off
Splinting noted, pain control
Once transferred to telemetry, we will sign off. Please call with questions
Assessment
-
59-year-old female with multivessel coronary disease status post chest pain, back pain hospitalized 04/02/2025, currently status post sternotomy with CABG x 4, left atrial appendage exclusion, temporary V pacing wires. Patient received 1 unit of
blood intraoperatively, currently on pressors. We are asked to help from critical care standpoint 04/09/2025
S/p CABG x 4, 04/09/2025
Received 1 unit transfusion intraoperatively
S/p NSTEMI 04/02/2025
Catheterization with multivessel coronary disease
History of renal insufficiency
Postoperative anemia
Conditions present prior to admission
Hypertension/hyperlipidemia
GERD
Sleep apnea untreated
History of gastric bypass surgery, gastric sleeve
History of carotid stenosis
Plan/recommendations
At this time, patient is critically ill but remains comfortable
extubated without difficulty
Splinting on exam noted
Remains on insulin drip
Chest tube output minimal
Chest x-ray with atelectasis
Moving forward
Continue with management per CT surgery
History of sleep apnea noted, head of bed elevated, follow closely with sedation, narcotics
Follow hemoglobin
Chest tube output minimal
Patient being followed by cardiology, recent hospital stay reviewed
History of vascular disease noted, plan for treatment with aspirin/Plavix/statin noted
DVT prophylaxis per protocol
Reviewed with critical care nursing
Subjective Dataa
Subjective Data
Date of Service:
Date of Service: April 10, 2025
Subjective:
Overall, patient appears to be comfortable, extubated without difficulty. Currently sitting in chair. Mild splinting noted, chest discomfort incisional discomfort. Denies nausea
Objective Data
Data Reviewed
Vital Signs / I&O / Oxygen:
Vital Signs
Temp Pulse Resp BP Pulse Ox
98.3 F 57 10 99/51 94
04/10/25 06:00 04/10/25 05:52 04/10/25 05:52 04/10/25 05:52 04/10/25 06:00
Intake and Output
04/08/25 04/09/25 04/10/25
06:59 06:59 06:59
Intake Total 1728.8 / 1728.8
Output Total 975 / 975
Balance 753.8 / 753.8
SaO2 [CPAP] 96
SaO2 [SIMV] 96
SaO2 94
Nasal Cannula flow liters per 2
minute
Physical Exam
General: Comfortable
HEENT: Normocephalic and Anicteric
Cardiovascular: S1-S2, Regular Rhythm, Murmur (n), Rub (n), Peripheral Edema (tr) and Other (Right lower extremity and left upper extremity bandage in place)
Respiratory: Wheeze (n), Crackles (n), Rhonchi (n), Stridor (n), Chest Tube and Other (Mild splinting, decreased breath sounds at base)
GI: Soft, Non Distended and Non Tender
Neurology: Awake, Alert and No Motor Deficits
Skin: Jaundice (n) and Rash (n)
Labs/Micro/Reports
Lab Data
04/10/25 03:12
04/10/25 03:12
Laboratory Results
04/09/25 04/10/25 04/10/25
11:47 03:12 06:12
PT 25.2 H 19.8 H
INR 2.28 1.66
APTT 34.3
pH 7.33 L 7.28 L
pCO2 39 H 47 H
pO2 99 96
HCO3 20.6 L 22.1
O2 Delivery Level
[2025-04-10 07:23] LABS: Glucose - Point of Care 87 mg/dl (70-99)
--- NOTE | 2025-04-10 07:59 | W.PN.ANS.POP ---
Anesthesia Post Operative
- Anesthesia Post Op Note
Vital Signs Stable-See Nursing Note: Yes (2mcg/min norepinephrine)
Airway Patent: Yes
Adequate Pain Control: Yes
Change in Mental Status: No
Current Postoperative Nausea & Vomiting: No
Anesthesia Complications: No
General Anesthetic Recall: No
Unplanned Admission: No
Post Op Hydration Adequate: Yes
--- NOTE | 2025-04-10 08:00 | PTCARENOTE ---
pt received from previous RN, oriented, drowsy. follows commands. SR on the monitor, HR 60s. +rub. V-wire in place, pacer box off. SBP 90-110s, goal MAP >65, Levophed gtt titrated as ordered. palpable pulses, trace generalized edema. pt on 2LNC,
97-98% POX, lungs diminished, poor effort. IS encouraged. denies cough or SOB. CTx3, no air leak or crepitus noted. pt abdomen s/n, denies n/v. +BS. clear liquid diet tolerated. sternal incision BINDERY OPERATOR, approximated. surgical bra in place. chest tube
dressing c/d/i. R groin puncture BINDERY OPERATOR. RLE BIJAN bandage in place. LUE BIJAN bandage in place. RIJ cordis maintained. PIV. insulin gtt running as ordered. R radial Maria flushed, zeroed, and calibrated. see worklist for VS, I&O, and assessment.
[2025-04-10] MEDS: NEURONTIN 100 MG PO (08:35)
[2025-04-10] MEDS: SENOKOT-S 1 TABLET PO ×2 (08:35→20:19)
[2025-04-10] MEDS: LOW STRENGTH ASPIRIN 81 MG PO (08:36)
[2025-04-10] MEDS: PLAVIX 75 MG PO (08:36)
[2025-04-10] MEDS: LIDOCAINE 4% PATCH 1 PATCH TOPICAL (08:36)
[2025-04-10] MEDS: PROTONIX 40 MG PO (08:36)
[2025-04-10] MEDS: BACTROBAN 2% OINTMENT 1 APPLIC NASAL ×2 (08:37→20:19)
[2025-04-10] MEDS: DILAUDID 0.25 MG IV (08:51)
--- NOTE | 2025-04-10 09:04 | W.PN.CARDCBS ---
Addendum entered and electronically signed by Juan David Del Valle DO 04/10/25 10:35:
I saw and examined the patient.
The Distributor Cleaner's note was reviewed and I agree with the note.
Comment:
Plan:
Cont post op care
Stable cv status
Chest tubes coming out
Midodrine for bp support. Wean IV Levophed
Discussed with nursing
Original Note:
Today's Communication / Plan
-
continue post op care, pain mgmt
wean supp O2
wean pressors
Impression / Plan
-
Primary Cardiology Consultant: initially seen by Dr. Cr
Assessment:
NSTEMI with MV CAD by cath 04/02/25 status post CABG x 4 In situ SALEEM to LAD, Ao to RSVG to high diagonal, proximal RSVG of Diag to Radial to OM, Ao to RSVG to LPDA, ROOSEVELT clip 04/09/25
HTN
GERD
Family h/o CAD
ECHO 04/01/25: EF 60 to 65%, no regional wall motion abnormalities noted, mild concentric LVH, stage II diastolic dysfunction, mild MR, moderately dilated LA, aortic sclerosis, trace AR
Plan:
-status post CABG x 4 In situ SALEEM to LAD, Ao to RSVG to high diagonal, proximal RSVG of Diag to Radial to OM, Ao to RSVG to LPDA, ROOSEVELT clip 04/09/25
-remains on levo @4, wean as able. starting po midodrine
-hgb 9.3. continue asa, plavix
-continue pain mgmt
-wean supp O2
-EKG 04/10 SR with LVH. in SR on review of tele. continue amiodarone. BB, norvasc for radial graft both on hold as on levo
-was on regimen of coreg 6.25mg BID, norvasc 10mg daily, hydralazine 25mg BID prior to surgery
-continue post op care. encouraged IS
-d/w nursing
Progress Note - Cardiology Consultant
Subjective
Date of Service: April 10, 2025
main complaint is pain, rates 4/10 at present
Objective
Labs:
04/10/25 03:12
Labs
Hgb 9.3 g/dL (12.0-16.0) L 04/10/25 03:12
Hct 28.4 % (37.0-47.0) L 04/10/25 03:12
Plt Count 208 10^3/uL (130-400) 04/10/25 03:12
PT 19.8 Sec (11.4-14.6) H 04/10/25 03:12
INR 1.66 04/10/25 03:12
APTT 34.3 Sec (23.4-35.0) 04/09/25 11:47
Sodium 139 mmol/L (135-145) 04/10/25 03:12
Potassium 4.9 mmol/L (3.5-5.1) D 04/10/25 03:12
BUN 37 mg/dl (7-17) H 04/10/25 03:12
Creatinine 2.3 mg/dL (0.6-1.0) H 04/10/25 03:12
Glucose 103 mg/dl (70-99) H 04/10/25 03:12
Vital Signs and I&O:
Vital Signs
Temp Pulse Resp BP Pulse Ox
98.3 F 74 18 114/57 98
04/10/25 06:00 04/10/25 08:45 04/10/25 08:00 04/10/25 08:14 04/10/25 08:45
Vital Signs
Temp Pulse Resp BP Pulse Ox
98.3 F 74 18 114/57 98
04/10/25 06:00 04/10/25 08:45 04/10/25 08:00 04/10/25 08:14 04/10/25 08:45
Intake & Output
04/08/25 04/09/25 04/10/25 04/11/25
07:59 07:59 07:59 07:59
Intake Total 1746.6 / 1764.4 17.8 / 17.8
Output Total 1025 / 1025
Balance 721.6 / 739.4 17.8 / 17.8
Physical Exam
Physical Exam
GEN: No distress, awake, alert, oriented x3. sitting in chair. on supp O2
HEENT: supple, anicteric, mmm, eomi
LUNGS: CTA B/L, no wheezes/rales
CV: Reg, S1/S2, no murmur, + rub
ABD: soft, BS+
EXT: No cyanosis, clubbing. trace edema of B/L LE
NEURO: Gross non-focal
SKIN: Warm, pink, dry. No rash
[2025-04-10 09:50] LABS: Glucose - Point of Care 111 mg/dl (70-99)
[2025-04-10] MEDS: NSS IV (10:34)
--- NOTE | 2025-04-10 11:16 | CM ---
Addendum entered by Marlin Sun RN 04/10/25 14:31:
Patient decided to go to her sister's house. Her sister works from home and [facility] [address] [facility] [address] [facility] [address] [place], [place] Plan is for the patient to go to her sisters house with CT Transitional RN.
Original Note:
Chart reviewed Patient OOB sitting in the chair. Patient is independent of ADLS, lives with her significant other in [facility] [address] [facility], [address], [address]. Plan is for the patient to return home CT Transitional RN. CM to follow
[2025-04-10 11:21] LABS: Glucose - Point of Care 99 mg/dl (70-99)
[2025-04-10 12:04] LABS: Glucose - Point of Care 107 mg/dl (70-99)
[2025-04-10] MEDS: MYLICON 80 MG PO (12:04)
--- NOTE | 2025-04-10 12:35 | PTCARENOTE ---
pt VSS, insulin gtt dc'd as ordered. BMP drawn and bedside ABG via EPOC completed by ALICIA Conklin. RLE and LUE BIJAN bandage removed. OOB in chair for lunch, pt remains drowsy but arousable. pt states has no urge to void, bladder scanned, [employer] JOINTER aware of
results. Albumin 5% x2 ordered.
[2025-04-10 12:36] LABS: B.E. - POC -2.8 mmol/L; Blood Urea Nitrogen - POC 37 mg/dl (3-120); Chloride - POC 108 mmol/L (96-111); Creatinine - POC 2.79 mg/dl (0.3-1.0); Glucose - POC 97 mg/dl (70-99); HCO3 - POC 23 mmol/L (21-28); Hematocrit - POC 29 % PCV (37-47); Hemodilution- POC No; Hemoglobin Calculated - POC 10.0; Ionized Calcium - POC 1.26 mmol/L (1.15-1.33); Lactate - POC 0.92 mmol/L (0.36-0.75); O2 Saturation %Calculated-POC 94.9 % (94-98); PCO2 - POC 43 mmHg (35-48); PO2 - POC 80 mmHg (83-108); Potassium - POC 4.8 mmol/L (3.5-5.1); Sodium - POC 141 mmol/L (136-145); Specimen Type - POC Arterial; pH - POC 7.34 (7.35-7.45)
[2025-04-10] MEDS: ALBUMIN 5% 250 IV ×2 (13:02→13:33)
[2025-04-10 13:13] LABS: Blood Urea Nitrogen 45 mg/dl (7-17); Calcium 9.0 mg/dl (8.4-10.2); Carbon Dioxide 21 mmol/L (22-30); Chloride 109 mmol/L (98-107); Estimated Creatinine Clearance 24 ml/min; Glucose 106 mg/dl (70-99); Potassium 4.7 mmol/L (3.5-5.1); Sodium 137 mmol/L (135-145); eGFR 18.63
[2025-04-10] MEDS: FERRLECIT 110 MG IV (14:22)
[2025-04-10] MEDS: NEURONTIN PO (15:21)
--- NOTE | 2025-04-10 15:33 | W.CON.NEPH ---
Addendum entered and electronically signed by Anselmo Don MD 04/10/25 17:46:
Resident note below reviewed with the following additions
59-year-old with mild CKD at baseline with creatinine around 1.3., Likely CKD 3B. Admitted to the hospital at the end of March with a non-ST elevation OH. She underwent cardiac authorization with multivessel coronary disease and was scheduled for
elective four-vessel bypass which was performed on 04/09/2025. She did require 1 unit of blood postoperatively. Velez catheter has already been removed. Blood pressures have been stable on pressors. Her creatinine however has risen postoperatively
now at 2.8. We are asked assessment of the acute kidney injury. Hemoglobin is now stable at 9.3. There is also a mild metabolic acidosis.
I agree with the exam below
Chest x-ray 04/10/2025 by my reading no edema
EKG 04/10/2025 by my reading normal sinus rhythm LVH repolarization abnormality
Labs reviewed as well as labs from prior admission
Impression
Acute kidney injury associated with cardiac surgery with baseline essential solitary left kidney
CKD 3B
Atrophy of the right kidney, unknown etiology
hypertension
Hyperlipidemia
GERD
History of gastric sleeve
Plan
Continue IV fluids
Wean pressors as allowed, wean midodrine later as allowed
Follow BMP
Discussed with the patient the possibility of requiring dialysis depending on degree of renal injury. She understands and would except dialysis if required.
Original Note:
Consultation
-
Date/Time Consultation Requested: 04-10-25
Date/Time Consultation Performed: 04-10-25
Requesting Provider: Katerin Justin
Performing Provider: Dr. Anselmo Don
Reason for Consultation: TERELL
Medical History
-
Chief Complaint: Chest pain
History of Present Illness:
Sydney Ann, 59-year-old with primary hypertension and suspected CKD was admitted to the hospital from 04-01-25 to 04-04-25 with NSTEMI. Cath on 04-02-25 had showed multivessel coronary disease. She came in for an elective 4-vessel CABG on
04-09-25, which was uncomplicated except for requiring 1 PRBC intra-op. Intermittently hypotensive post-op. Agustin was taken out this morning after which she has been voiding on her own, although not making a lot of urine - so was started on IV
fluids. She came in with elevated creatinine with the NSTEMI and was suspected to have CKD; has not been evaluated for it outpatient and has not seen nephrology.
Past Medical History
Past Medical History: GERD and HTN
Past Surgical History: Other (gastric sleeve; R knee)
Social History
Tobacco: Non-Smoker
Alcohol: Occasional
Drug: None
Employment: Employed
Family History
Family History: Early CAD (father)
Allergies / Home Medications
Allergy/AdvReac Type Severity Reaction Status Date / Time
No Known Allergies Allergy Verified 04/01/25 18:28
�Medication �Instructions �Recorded �Confirmed �Type
amlodipine 10 mg tablet (Norvasc) 10 mg PO DAILY Blood Pressure 04/01/25 04/09/25 History
cyanocobalamin (vitamin B-12) 1,000 mcg PO DAILY Supplement 04/01/25 04/09/25 History
1,000 mcg tablet
omeprazole 40 mg capsule,delayed 40 mg PO DAILY GERD 04/01/25 04/09/25 History
release
therapeutic multivitamin 1 tab PO DAILY Supplement 04/01/25 04/09/25 History
atorvastatin 80 mg tablet 80 mg PO QPM 30 days #30 tabs 04/04/25 04/09/25 Rx
aspirin 81 mg chewable tablet 81 mg PO DAILY Blood Clot 04/10/25 04/09/25 History
Prevention/Tx
carvedilol 6.25 mg tablet 6.25 mg PO BID Blood Pressure 04/10/25 04/09/25 History
hydralazine 25 mg tablet 25 mg PO BID Blood Pressure 04/10/25 04/09/25 History
Review of Systems
-
History Source: Patient
All other systems: Negative unless noted
Constitutional: Fatigue
Cardiac: Other (surgical scar soreness)
Physical Exam
Vital Signs
Vital Signs
Temp Pulse Resp BP Pulse Ox
97.7 F 67 18 122/62 98
04/10/25 15:00 04/10/25 15:21 04/10/25 11:00 04/10/25 15:21 04/10/25 15:21
Lab Results
WBC 18.1 10^3/uL (4.8-10.8) H 04/10/25 03:12
RBC 3.05 10^6/uL (4.20-5.40) L 04/10/25 03:12
Hgb 9.3 g/dL (12.0-16.0) L 04/10/25 03:12
Hct 28.4 % (37.0-47.0) L 04/10/25 03:12
Plt Count 208 10^3/uL (130-400) 04/10/25 03:12
Sodium 137 mmol/L (135-145) 04/10/25 12:31
Potassium 4.7 mmol/L (3.5-5.1) 04/10/25 12:31
Chloride 109 mmol/L (98-107) H 04/10/25 12:31
Carbon Dioxide 21 mmol/L (22-30) L 04/10/25 12:31
BUN 45 mg/dl (7-17) H 04/10/25 12:31
Creatinine 2.8 mg/dL (0.6-1.0) H 04/10/25 12:31
eGFR 18.63 04/10/25 12:31
Glucose 106 mg/dl (70-99) H 04/10/25 12:31
Calcium 9.0 mg/dl (8.4-10.2) 04/10/25 12:31
Albumin 2.9 g/dl (3.5-5.0) L 04/10/25 03:12
Physical Exam
General: No Distress and Nontoxic
HEENT: Anicteric and Conjunctivae Clear
Respiratory: Clear and Nonlabored Respirations
Cardiac: S1/S2 and Regular Rate/Rhythm
Abdomen: Soft, Nontender and Nondistended
Genito-urinary: No Costovertebral Tender
Musculoskeletal: No Clubbing, No Cyanosis and Edema (trace BL LE)
Skin: No Rash and No Bruising
Neuro: Nonfocal/Grossly Intact
Psych: Mood/afflect pleasant and Insight/judgement good
Data Reviewed
-
Radiology: Image Personally Visualized and interpreted and Report Reviewed by me
Labs: Labs Reviewed by me, Discussed with Patient and Discussed with Family
Old Records: Reviewed
Assessment/Plan
-
Impression
Acute kidney injury
Suspected CKD
Atrophy of the right kidney, unknown etiology
Primary hypertension
Hyperlipidemia
GERD
Class I Obesity due to excessive calorie intake
History of gastric sleeve
Plan
Likely from the hypoperfusion during the surgery and subsequent intermittent hypotension.
Likely not contrast nephropathy at this stage.
Continue IV hydration.
Wean pressors for MAP > 65.
Follow BMP.
Avoid nephrotoxins.
--- NOTE | 2025-04-10 16:00 | PTCARENOTE ---
pt VSS, voided in BSC. PICKLER HELPER aware of UO. sister at bedside. IS encouraged.
[2025-04-10] MEDS: LIPITOR 80 MG PO (17:02)
--- NOTE | 2025-04-10 19:30 | PTCARENOTE ---
assumed care of pt from previous RN. pt drowsy, responds to verbal stimuli. oriented x4. pt resting in chair at time of assessment. SR on tele-monitor. temp epicardial v-wires insulated. POX 94-97% on [address] x2 (mediastinal x2) to -20cm wall
suction, draining serosanguineous drainage. abd s/n, round, obese. +BS. pt oliguric. bladder scan per protocol. all surgical sites stable, CDI. R IJ cordis w/ KVO. PIV intact. see worklist for complete nursing assessment, interventions, VS, and
I&Os.
[2025-04-10] MEDS: REMOVE LIDOCAINE PATCH 1 PATCH REMOVE (20:19)
--- NOTE | 2025-04-10 23:00 | PTCARENOTE ---
report received from previous RN. pt in bed, sleeping. SR/SB on monitor, HR 50s-60s. heart tones clear. temp epicardial v-wires intact and insulated. POX 92-93% on [address] x2 intact to -20cm wall suction, draining serosanguineous drainage. bowel
sounds present. pt oliguric. bladder scan per protocol. all surgical sites stable, CDI. R IJ cordis intact w KVO infusing. PIV intact. see worklist for complete nursing assessment, interventions, VS, and I&Os.
[2025-04-11] VITALS (23 sets, daily range): BP systolic 96–155; BP diastolic 46–63; PULSE 62; O2SAT 94–98; BMI 33.7
--- NOTE | 2025-04-11 03:00 | PTCARENOTE ---
no acute changes. SR 60s-70s w PVCs. POX 95-96% on 2LNC. pt sleeping between care.
--- NOTE | 2025-04-11 03:09 | W.PN.CT ---
Today's Communication / Plan
-
-pod #2
-5 beat NSVT overnight - sleeping, asymptomatic
-Midodrine started 04/10. MAPs were mid 50s earlier last night -discussed with Dr. Sanders, re-started Levo @ 1 with maps improving to 65-70s overnight
-sleepy - holding Gabapentin and Flexeril, minimize narcotics
-holding Norvasc, Amio, Toprol d/t bradycardia/hypotension
-holding Mg d/t TERELL
-follow Cr - 3.6 today (2.3-2.8 on 04/10, 1.4-1.6 on 04/09, and 1.7 preop). Appreciate Nephrology input
-maintain a-line
-follow UO with bladder scans. UO 250/425 in 12/24 hrs. No residual this am on bladder scan
-CT output: 2 meds 80/135 in 12/24 hrs
-current meds (ASA, Plavix, Lipitor, Protonix, Tylenol). Midodrine is on hold. Re-started iv Levo to keep MAP >65
-gave 2 g Ca gluconate this am 04/11
-Encourage use of IS
-OOB into chair/Ambulate as tolerated
Assessment / Plan
-
assessment:
-S/P Standard Sternotomy/CABG x 4 (In situ SALEEM to LAD, Ao to RSVG to high diagonal, proximal RSVG of Diag to Radial to OM, Ao to RSVG to LPDA)/Endoscopic vein and artery harvesting of right lower extremity and left radial, respectively/Left atrial
appendage exclusion (35 mm clip, serial #[id number]), by Dr. Sanders, 04/09/25, pod#2
-Multivessel CAD
-NSTEMI (0.330)
-Mild mid asc. aorta dilatation (3.5 cm)
-LVEF 60% per intraop KELLIE
-Family hx of CAD (father had CABG in his 60's)
-Hypertension
-Hyperlipidemia
-Class 1 obesity
-Prediabetes (A1C 5.7)
-History of gastric bypass/gastric sleeve
-Bilateral carotid artery stenosis
-GERD
-Renal insufficiency/ Acute kidney injury
-Anemia
-S/p Right knee surgery
-S/P gastric sleeve
-CKD 3b (Cr 1.4-1.8 preop)
-Atrophy of the right kidney, unknown etiology, with baseline essentially solitary left kidney
-Acute postop blood loss on chronic Anemia (transfused 1u prbc)
-Acute postop atelectasis
-Acute postop hypovolemia with subsequent hypervolemia
-Acute postop hypermagnesemia
-Acute postop sinus bradycardia
-Acute postop TERELL on CKD
-5 beat NSVT on 04/11
Discussed patient care with: Nursing and Care Team
Subjective
Procedure
-S/P Standard Sternotomy/CABG x 4 (In situ SALEEM to LAD, Ao to RSVG to high diagonal, proximal RSVG of Diag to Radial to OM, Ao to RSVG to LPDA)/Endoscopic vein and artery harvesting of right lower extremity and left radial, respectively/Left atrial
appendage exclusion (35 mm clip, serial #[id number]), by Dr. Sanders, 04/09/25
-
Date of Service: April 11, 2025
Objective Data
-
PT 19.8 Sec (11.4-14.6) H 04/10/25 03:12
INR 1.66 04/10/25 03:12
APTT 34.3 Sec (23.4-35.0) 04/09/25 11:47
Vital Signs
Vital Signs
Temp Pulse Resp BP Pulse Ox
98.2 F 69 16 95/48 91
04/10/25 23:00 04/10/25 23:30 04/10/25 23:00 04/10/25 21:01 04/10/25 23:30
CT Intake/Output/Weight
04/10/25 04/10/25 04/11/25
06:59 18:59 06:59
Intake Total 791.2 / 1746.6 816.5 / 860.3 43.8 / 860.3
Output Total 425 / 1025 240 / 270 30 / 270
Balance 366.2 / 721.6 576.5 / 590.3 13.8 / 590.3
SaO2: 91
Physical Exam
-
General: Awake, Oriented and AOx3
Cardiovascular: Regular rate & rhythm, No Murmurs, No Rub and No Gallop
Respiratory: Decreased Breath Sounds (at bases, otherwise clear )
Sternum: Stable
Incision: Clean, Dry, Intact and Dressing Intact
Extremities: Other (+trace edema)
Data Reviewed
-
Lab Results: Results Reviewed
Medications: Active Meds Reviewed
Chest X-Ray: Report Reviewed and Image Reviewed
ECG: Report Reviewed and Image Reviewed
[2025-04-11 04:05] LABS: Hematocrit 24.1 % (37.0-47.0); Hemoglobin 8.0 g/dL (12.0-16.0); Mean Corp Hgb Conc. 33.2 g/dL (33.0-37.0); Mean Corpuscular Volume 93.4 fL (81.0-99.0); Platelet Count 137 10^3/uL (130-400); Red Cell Dist. Width 13.8 % (11.5-14.5)
[2025-04-11 04:22] LABS: Blood Urea Nitrogen 51 mg/dl (7-17); Calcium 8.1 mg/dl (8.4-10.2); Carbon Dioxide 22 mmol/L (22-30); Chloride 107 mmol/L (98-107); Estimated Creatinine Clearance 19 ml/min; Glucose 135 mg/dl (70-99); Magnesium 2.5 mg/dl (1.6-2.3); Potassium 4.4 mmol/L (3.5-5.1); Sodium 138 mmol/L (135-145); eGFR 13.78
[2025-04-11] MEDS: TYLENOL 1000 MG PO ×3 (06:24→21:30)
[2025-04-11] MEDS: CALCIUM GLUCONATE 100 IV (06:27)
--- NOTE | 2025-04-11 07:49 | W.PN.INTV ---
Addendum entered and electronically signed by Robert Zapata MD 04/11/25 14:30:
Patient transferred to telemetry
We will sign off. Please call with questions
Original Note:
Today's Communication / Plan
Recommendations
Continue norepinephrine per CT surgery
Creatinine noted. Lasix/IV fluids
Nephrology following
Continue to minimize narcotic therapy, sedatives
Head of bed elevated
Assessment
-
59-year-old female with multivessel coronary disease status post chest pain, back pain hospitalized 04/02/2025, currently status post sternotomy with CABG x 4, left atrial appendage exclusion, temporary V pacing wires. Patient received 1 unit of
blood intraoperatively, currently on pressors. We are asked to help from critical care standpoint 04/09/2025
S/p CABG x 4, 04/09/2025
Received 1 unit transfusion intraoperatively
S/p NSTEMI 04/02/2025
Catheterization with multivessel coronary disease
History of renal insufficiency
Postoperative anemia
Conditions present prior to admission
Hypertension/hyperlipidemia
GERD
Sleep apnea untreated
History of gastric bypass surgery, gastric sleeve
History of carotid stenosis
Plan/recommendations
At this time, patient is critically ill but remains comfortable
Splinting on exam noted
Remains on insulin drip
Chest tube output minimal
Chest x-ray with atelectasis, left lower lobe pleuroparenchymal process hemoglobin 8.0
Remains on norepinephrine
Creatinine increased
Moving forward
Continue with management per CT surgery
History of sleep apnea noted, head of bed elevated, follow closely with sedation, narcotics
Gabapentin, Flexeril, narcotics are being minimized
Follow hemoglobin
Chest tube output minimal
Patient being followed by cardiology, recent hospital stay reviewed
History of vascular disease noted, plan for treatment with aspirin/Plavix/statin noted
Creatinine noted, 3.6
Nephrology following IV fluids
IV fluids with Lasix trial being considered
Patient with essentially solitary kidney
DVT prophylaxis per protocol
Reviewed with critical care nursing
Subjective Dataa
Subjective Data
Date of Service:
Date of Service: April 11, 2025
Subjective:
Patient complaining of profound fatigue, sitting in chair sleeping. Easily arousable. Mild incisional discomfort, splinting but otherwise denies nausea, abdominal pain.
Objective Data
Data Reviewed
Vital Signs / I&O / Oxygen:
Vital Signs
Temp Pulse Resp BP Pulse Ox
98.3 F 63 16 95/48 97
04/11/25 03:00 04/11/25 07:00 04/11/25 03:00 04/10/25 21:01 04/11/25 07:00
Intake and Output
04/10/25 04/11/25 04/12/25
06:59 06:59 06:59
Intake Total 1728.8 / 1746.6 935.3 / 935.3
Output Total 975 / 1025 570 / 570
Balance 753.8 / 721.6 365.3 / 365.3
SaO2 [CPAP] 96
SaO2 [SIMV] 96
SaO2 97
Nasal Cannula flow liters per 2
minute
Physical Exam
General: Comfortable
HEENT: Normocephalic and Anicteric
Cardiovascular: S1-S2, Regular Rhythm, Murmur (n), Rub (n), Peripheral Edema (tr) and Other (Right lower extremity and left upper extremity bandage in place)
Respiratory: Wheeze (n), Crackles (n), Rhonchi (n), Stridor (n), Chest Tube and Other (Mild splinting, decreased breath sounds at base)
GI: Soft, Non Distended and Non Tender
Neurology: Awake, Alert and No Motor Deficits
Skin: Jaundice (n) and Rash (n)
Labs/Micro/Reports
Lab Data
04/11/25 03:47
04/11/25 03:47
Laboratory Results
04/10/25
12:00
pH Cancelled
pCO2 Cancelled
pO2 Cancelled
HCO3 Cancelled
O2 Delivery Level Cancelled
--- NOTE | 2025-04-11 08:07 | PTCARENOTE ---
Patient received from shift commander resting oob in chair, sleepy but arousable and appropriate, states pain controlled at this time. SB via cm, SaO2 @ 96% on 2lnc. RIJ Cordis w/kvo infusing. Epicardial V-wire, insulated to chest wall. [place] chest
tubes x 2, Y-connected to one pleurevac, to -20cm suction w/no air leak appreciated. All procedural sites stable. Patient updated to plan of care for the day, in agreement. See work list for full assessment and interventions performed.
[2025-04-11] MEDS: LIDOCAINE 4% PATCH TOPICAL (08:41)
[2025-04-11] MEDS: PLAVIX 75 MG PO (08:58)
[2025-04-11] MEDS: BACTROBAN 2% OINTMENT 1 APPLIC NASAL ×2 (08:58→19:42)
[2025-04-11] MEDS: PROTONIX 40 MG PO (08:58)
[2025-04-11] MEDS: LOW STRENGTH ASPIRIN 81 MG PO (08:58)
[2025-04-11] MEDS: SENOKOT-S 1 TABLET PO ×2 (08:58→19:42)
[2025-04-11] MEDS: LASIX 80 MG IV (09:15)
--- NOTE | 2025-04-11 10:49 | W.PN.NEPH.PH ---
Today's Communication / Plan
-
Follow BMP
Assessment/Plan
-
Impression
Acute kidney injury associated with cardiac surgery with baseline essential solitary left kidney
CKD 3B
Atrophy of the right kidney, unknown etiology
hypertension
Hyperlipidemia
GERD
History of gastric sleeve
Plan
IV fluids
Lasix 80 mg IV trial
Follow BMP
Off IV pressors but still
Discussed with patient likelihood of needing dialysis is higher given current rate of rise of creatinine
There is a possibility that she will require dialysis in the next 48 hours
Maintain Cordis or switch to dialysis catheter if needed
-
-
Date of Service: April 11, 2025
CC / HPI / ROS
-
Chief Complaint:
TERELL
History of Present Illness:
Hemoglobin lower at 8.0
BP improved
TERELL/Cr worse at 3.6
Review of Systems:
No chest pain or shortness of breath
Flat affect
Complains of hand edema
Oliguric
Labs
-
Labs:
WBC 14.3 10^3/uL (4.8-10.8) H 04/11/25 03:47
RBC 2.58 10^6/uL (4.20-5.40) L 04/11/25 03:47
Hgb 8.0 g/dL (12.0-16.0) L 04/11/25 03:47
Hct 24.1 % (37.0-47.0) L 04/11/25 03:47
Plt Count 137 10^3/uL (130-400) D 04/11/25 03:47
eGFR 13.78 04/11/25 03:47
Albumin 2.9 g/dl (3.5-5.0) L 04/10/25 03:12
Physical Exam
-
Vital Signs:
Vital Signs
Temp Pulse Resp BP Pulse Ox
98.7 F 64 14 139/58 96
04/11/25 07:51 04/11/25 10:00 04/11/25 07:51 04/11/25 09:15 04/11/25 09:19
Cardiovascular:: Regular rate and rhythm
Respiratory:: Bilateral: Coarse
Lung Excursion:: Normal
Abdomen:: Nontender and Soft
Bowel Sounds:: Normal
Extremity Edema:: +2: Bilateral:
--- NOTE | 2025-04-11 12:14 | W.PN.CARDCBS ---
Addendum entered and electronically signed by Jamie Meeks MD 04/11/25 19:47:
Patient interviewed and examined. Note below reviewed.
Overall, despite some postoperative discomfort she offers no complaints, sitting in chair, chest tubes out, no pressors, had been on Levophed, currently on midodrine, metoprolol, amlodipine, gabapentin currently on hold
148/61, pulse 63, respiratory 16, head neck exam unremarkable, chest incision intact, regular rate and rhythm no rubs, lungs are clear, extremities without significant edema
Hemoglobin is 8, creatinine is 3.7, BUN 57
ECG sinus rhythm, LVH, repolarization changes, chest x-ray limited inspiration, opacified left base to limb: Brief nonsustained VT
Impression: As below per Ladonna Rees
Plan:
Hemodynamically doing well, nephrology following renal function which seems to be plateauing
Blood pressure currently reasonable, defer management of midodrine to CT surgery and renal
Presumed eventual restart of beta-andrey and amlodipine. Still on aspirin, amiodarone, clopidogrel, and statin. We will continue to follow
Original Note:
Today's Communication / Plan
-
continue postop care
follow Cr
continue amio
follow hgb
Impression / Plan
-
Primary Reel And Rewinder Operator: initially seen by Dr. Cr
Assessment:
NSTEMI with MV CAD by cath 04/02/25 status post CABG x 4 In situ SALEEM to LAD, Ao to RSVG to high diagonal, proximal RSVG of Diag to Radial to OM, Ao to RSVG to LPDA, ROOSEVELT clip 04/09/25
HTN
GERD
Family h/o CAD
ECHO 04/01/25: EF 60 to 65%, no regional wall motion abnormalities noted, mild concentric LVH, stage II diastolic dysfunction, mild MR, moderately dilated LA, aortic sclerosis, trace AR
Plan:
-status post CABG x 4 In situ SALEEM to LAD, Ao to RSVG to high diagonal, proximal RSVG of Diag to Radial to OM, Ao to RSVG to LPDA, ROOSEVELT clip 04/09/25
-off pressors. continue midodrine, wean as able
-hgb 8.0. continue asa, plavix
-for CT removal
-remains drowsy. avoid opioids as able
-Cr up to 3.6. baseline Cr was mid 1s preop. nephrology following
-in SR on review of tele with 2 5-6 beat runs of NSVT overnight. continue amio. toprol, norvasc for radial graft on hold with relative hypotension
-was on regimen of coreg 6.25mg BID, norvasc 10mg daily, hydralazine 25mg BID prior to surgery
-continue post op care. OOB/IS as able
-d/w nursing
Progress Note - Reel And Rewinder Operator
Subjective
Date of Service: April 11, 2025
feels tired.
Objective
Labs:
04/11/25 03:47
Labs
Hgb 8.0 g/dL (12.0-16.0) L 04/11/25 03:47
Hct 24.1 % (37.0-47.0) L 04/11/25 03:47
Plt Count 137 10^3/uL (130-400) D 04/11/25 03:47
PT 19.8 Sec (11.4-14.6) H 04/10/25 03:12
INR 1.66 04/10/25 03:12
APTT 34.3 Sec (23.4-35.0) 04/09/25 11:47
Sodium 138 mmol/L (135-145) 04/11/25 03:47
Potassium 4.4 mmol/L (3.5-5.1) 04/11/25 03:47
BUN 51 mg/dl (7-17) H 04/11/25 03:47
Creatinine 3.6 mg/dL (0.6-1.0) H 04/11/25 03:47
Glucose 135 mg/dl (70-99) H 04/11/25 03:47
Vital Signs and I&O:
Vital Signs
Temp Pulse Resp BP Pulse Ox
98.6 F 56 15 111/55 96
04/11/25 12:00 04/11/25 12:00 04/11/25 12:00 04/11/25 12:00 04/11/25 12:00
Vital Signs
Temp Pulse Resp BP Pulse Ox
98.6 F 56 15 111/55 96
04/11/25 12:00 04/11/25 12:00 04/11/25 12:00 04/11/25 12:00 04/11/25 12:00
Intake & Output
04/09/25 04/10/25 04/11/25 04/12/25
07:59 07:59 07:59 07:59
Intake Total 1746.6 / 1764.4 917.5 / 937.5 290 / 290
Output Total 1025 / 1025 520 / 545 305 / 305
Balance 721.6 / 739.4 397.5 / 392.5 -15 / -15
Physical Exam
Physical Exam
GEN: No distress, awakens but drowsy.
HEENT: supple, anicteric, mmm, eomi
LUNGS: CTA B/L, no wheezes/rales
CV: Reg, S1/S2, no murmur
EXT: No cyanosis, clubbing. trace edema of B/L LE
SKIN: Warm, pink, dry. No rash. Sternotomy dressing c/d/i
--- NOTE | 2025-04-11 12:35 | PTCARENOTE ---
Epicardial pacing wire d/c'd by CADE Dat. Bedrest maintained x 1 hour, VS obtained per protocol. After one hour, chest tubes d/c'd as ordered. Patient tolerated well. Assisted oob to commode, voided. Settled to chair, lunch ordered.
[2025-04-11] MEDS: NSS 500 IV (12:41)
[2025-04-11] MEDS: FERRLECIT 110 MG IV (14:17)
[2025-04-11 14:31] LABS: Blood Urea Nitrogen 57 mg/dl (7-17); Calcium 8.5 mg/dl (8.4-10.2); Carbon Dioxide 21 mmol/L (22-30); Chloride 106 mmol/L (98-107); Estimated Creatinine Clearance 19 ml/min; Glucose 153 mg/dl (70-99); Potassium 4.2 mmol/L (3.5-5.1); Sodium 136 mmol/L (135-145); eGFR 13.33
--- NOTE | 2025-04-11 15:02 | CM ---
Chart reviewed. Patent is OOB sitting in the chair, son at bedside. 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 Patient is going to go to her sisters house, 2 STH,
sister works concession supervisor at home. Patient's sister's address is [address] [place] [address] Vane ENGLE, Tamica Plan is for the patient to go to her sisters house with CT Transitional RN. CM to follow
[2025-04-11] MEDS: LEVOPHED 250 IV (16:24)
[2025-04-11] MEDS: LIPITOR 80 MG PO (17:11)
[2025-04-11] MEDS: REMOVE LIDOCAINE PATCH 1 PATCH REMOVE (19:42)
--- NOTE | 2025-04-11 20:00 | PTCARENOTE ---
Assumed care of the patient at 1900. Patient OOB to chair, drowsy, AOx3. SR on CM, heart tones audible, trace generalized edema, pulses palpable. On 1LNC satting 95%, lungs dim at the bases, intermittent moist nonproductive cough, IS encouraged.
Abdomen SNT, obese, normoactive BS, poor appetite. Voids spontaneously per day shift, toileting offered to patient, declines at this time. All surgical sites intact. RIJ Cordis, PIV x1, KVO infusing, radial saroj d/c'ed at change of shift. Asst x1
BIB, sternal precautions reinforced, patient denies significant pain. POC discussed with patient, in agreement, assessment of needs ongoing, call suggs within reach.
[2025-04-12] VITALS (28 sets, daily range): BP systolic 107–154; BP diastolic 48–91; PULSE 66; O2SAT 94; BMI 33.6
--- NOTE | 2025-04-12 | PTCARENOTE ---
No significant changes, patient drowsy, sleeping between care, easily arousable to voice, care plan ongoing.
--- NOTE | 2025-04-12 02:11 | W.PN.CT ---
Today's Communication / Plan
-
-pod #3
-no issues overnight
-Midodrine uptitrated to 10 tid to keep map 70s
-sleepy - A&O, holding Gabapentin and Flexeril, minimize narcotics
-holding Norvasc, Amio, Toprol d/t bradycardia/hypotension
-holding Mg d/t TERELL
-follow Cr - 3.6 today (3.6-3.7 on 102.3-2.8 on 04/10, 1.4-1.6 on 04/09, and 1.7 preop). Appreciate Nephrology input
-diuresed with 80 iv Lasix on 04/11 (UO 800)
-current meds (ASA, Plavix, Lipitor, Midodrine 10 tid, Protonix, Tylenol).
-Encourage use of IS
-OOB into chair/Ambulate as tolerated
-appreciate everyone's input
Assessment / Plan
-
assessment:
-S/P Standard Sternotomy/CABG x 4 (In situ SALEEM to LAD, Ao to RSVG to high diagonal, proximal RSVG of Diag to Radial to OM, Ao to RSVG to LPDA)/Endoscopic vein and artery harvesting of right lower extremity and left radial, respectively/Left atrial
appendage exclusion (35 mm clip, serial #[id number]), by Dr. Sanders, 04/09/25, pod#3
-Multivessel CAD
-NSTEMI (0.330)
-Mild mid asc. aorta dilatation (3.5 cm)
-LVEF 60% per intraop KELLIE
-Family hx of CAD (father had CABG in his 60's)
-Hypertension
-Hyperlipidemia
-Class 1 obesity
-Prediabetes (A1C 5.7)
-History of gastric bypass/gastric sleeve
-Bilateral carotid artery stenosis
-GERD
-Renal insufficiency/ Acute kidney injury
-Anemia
-S/p Right knee surgery
-S/P gastric sleeve
-CKD 3b (Cr 1.4-1.8 preop)
-Atrophy of the right kidney, unknown etiology, with baseline essentially solitary left kidney
-Acute postop blood loss on chronic Anemia (transfused 1u prbc)
-Acute postop atelectasis
-Acute postop hypovolemia with subsequent hypervolemia
-Acute postop hypermagnesemia
-Acute postop sinus bradycardia
-Acute postop TERELL on CKD
-5 beat NSVT on 04/11
Discussed patient care with: Nursing and Care Team
Subjective
Procedure
-S/P Standard Sternotomy/CABG x 4 (In situ SALEEM to LAD, Ao to RSVG to high diagonal, proximal RSVG of Diag to Radial to OM, Ao to RSVG to LPDA)/Endoscopic vein and artery harvesting of right lower extremity and left radial, respectively/Left atrial
appendage exclusion (35 mm clip, serial #[id number]), by Dr. Sanders, 04/09/25
-
Date of Service: April 12, 2025
Objective Data
-
PT 19.8 Sec (11.4-14.6) H 04/10/25 03:12
INR 1.66 04/10/25 03:12
APTT 34.3 Sec (23.4-35.0) 04/09/25 11:47
Vital Signs
Vital Signs
Temp Pulse Resp BP Pulse Ox
98.6 F 58 18 120/54 93
04/12/25 00:16 04/12/25 01:30 04/12/25 00:16 04/12/25 01:00 04/12/25 01:30
CT Intake/Output/Weight
04/11/25 04/11/25 04/12/25
06:59 18:59 06:59
Intake Total 118.8 / 935.3 457.5 / 697.5 240 / 697.5
Output Total 330 / 570 855 / 1055 200 / 1055
Balance -211.2 / 365.3 -397.5 / -357.5 40 / -357.5
SaO2: 93
Physical Exam
-
General: Awake, Oriented and AOx3
Cardiovascular: Regular rate & rhythm, No Murmurs, No Rub and No Gallop
Respiratory: Decreased Breath Sounds (at bases, otherwise clear )
Sternum: Stable
Incision: Clean, Dry, Intact and Dressing Intact
Extremities: Other (+trace edema)
Data Reviewed
-
Lab Results: Results Reviewed
Medications: Active Meds Reviewed
Chest X-Ray: Report Reviewed and Image Reviewed
ECG: Report Reviewed and Image Reviewed
--- NOTE | 2025-04-12 04:00 | PTCARENOTE ---
No changes in assessment. Patient voided on commode with encouragement without difficulty. Sleeping between care. Assessment of needs ongoing.
[2025-04-12 04:29] LABS: Hematocrit 22.2 % (37.0-47.0); Hemoglobin 7.4 g/dL (12.0-16.0); Mean Corp Hgb Conc. 33.3 g/dL (33.0-37.0); Mean Corpuscular Volume 93.3 fL (81.0-99.0); Platelet Count 139 10^3/uL (130-400); Red Cell Dist. Width 13.6 % (11.5-14.5)
[2025-04-12 04:56] LABS: Blood Urea Nitrogen 61 mg/dl (7-17); Calcium 7.5 mg/dl (8.4-10.2); Carbon Dioxide 23 mmol/L (22-30); Chloride 106 mmol/L (98-107); Estimated Creatinine Clearance 19 ml/min; Glucose 107 mg/dl (70-99); Magnesium 2.5 mg/dl (1.6-2.3); Potassium 3.7 mmol/L (3.5-5.1); Sodium 137 mmol/L (135-145); eGFR 13.78
[2025-04-12] MEDS: TYLENOL 1000 MG PO ×3 (05:47→23:22)
--- NOTE | 2025-04-12 08:05 | PTCARENOTE ---
pt received from previous RN, oriented, OOB in chair. SB on the monitor, HR 50s. SBP 100-120s. palpable pulses, trace generalized edema. pt on RA, 96% POX. lungs diminished, crackles at bases. IS 500ml. pt abdomen s/n, denies n/v. +BS. voids.
sternal incision approximated, ORIANA, surgical bra in place. chest tube dressing c/d/i. 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 RLE incision ORIANA. RIJ Cordis maintained, dressing changed. PIV. ABO drawn. see worklist for VS, I&O, and assessment.
[2025-04-12] MEDS: LOW STRENGTH ASPIRIN 81 MG PO (08:53)
[2025-04-12] MEDS: PROTONIX 40 MG PO (08:53)
[2025-04-12] MEDS: SENOKOT-S 1 TABLET PO ×2 (08:53→20:19)
[2025-04-12] MEDS: PLAVIX 75 MG PO (08:53)
[2025-04-12] MEDS: LIDOCAINE 4% PATCH 1 PATCH TOPICAL (08:53)
[2025-04-12] MEDS: BACTROBAN 2% OINTMENT 1 APPLIC NASAL ×2 (08:54→20:09)
--- NOTE | 2025-04-12 10:36 | W.PN.CARDCBS ---
Addendum entered and electronically signed by Jamie Meeks MD 04/12/25 19:19:
Patient without specific complaints at present, feels generally uncomfortable. Sitting in chair
121/52, pulse 65, 60, diminished breath sounds in bases, incision intact, no obvious murmur, JVD okay, not much edema
Hemoglobin 7.4, white count 13.3, creatinine plateaued at 3.6, BUN 61, received furosemide 80 mg,
Chest x-ray poor inspiration, atelectasis/effusion left base
Assessment:
NSTEMI with MV CAD by cath 04/02/25 status post CABG x 4 In situ SALEEM to LAD, Ao to RSVG to high diagonal, proximal RSVG of Diag to Radial to OM, Ao to RSVG to LPDA, ROOSEVELT clip 04/09/25
HTN
GERD
Hyperlipidemia
TERELL -now plateaued
Anemia
Plan:
Satisfactory hemodynamic/cardiac status
Nephrology following renal function which has plateaued
Will continue to follow
Original Note:
Today's Communication / Plan
-
follow hgb
follow volume status
Cr improving
follow BPs, on midodrine
post op care
Impression / Plan
-
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 Cr
Assessment:
NSTEMI with MV CAD by cath 04/02/25 status post CABG x 4 In situ SALEEM to LAD, Ao to RSVG to high diagonal, proximal RSVG of Diag to Radial to OM, Ao to RSVG to LPDA, ROOSEVELT clip 04/09/25
HTN
GERD
Family h/o CAD
ECHO 04/01/25: EF 60 to 65%, no regional wall motion abnormalities noted, mild concentric LVH, stage II diastolic dysfunction, mild MR, moderately dilated LA, aortic sclerosis, trace AR
Plan:
-status post CABG x 4 In situ SALEEM to LAD, Ao to RSVG to high diagonal, proximal RSVG of Diag to Radial to OM, Ao to RSVG to LPDA, ROOSEVELT clip 04/09/25
- Midodrine uptitrated to 10 mg 3 times daily. Follow blood pressures
- Hemoglobin 7.4. Receiving 1 unit packed red blood cells, followed by 80 mg IV Lasix. Continue aspirin Plavix
- Creatinine peaked at 3.7 and now downtrending. Nephrology following. Baseline creatinine was in mid ones preoperatively
- Avoiding opioids as able given lethargy
- Remains in sinus rhythm with PACs on review of telemetry overnight. Continue amiodarone
- toprol, norvasc for radial graft on hold with relative hypotension. was on regimen of coreg 6.25mg BID, norvasc 10mg daily, hydralazine 25mg BID prior to surgery
- continue post op care. OOB/IS as able
- d/w nursing
Progress Note - Floral Merchandiser
Subjective
Date of Service: April 12, 2025
Appears somewhat more awake today.
Objective
Labs:
04/12/25 04:14
04/12/25 04:14
Labs
Hgb 7.4 g/dL (12.0-16.0) L 04/12/25 04:14
Hct 22.2 % (37.0-47.0) L 04/12/25 04:14
Plt Count 139 10^3/uL (130-400) 04/12/25 04:14
PT 19.8 Sec (11.4-14.6) H 04/10/25 03:12
INR 1.66 04/10/25 03:12
APTT 34.3 Sec (23.4-35.0) 04/09/25 11:47
Sodium 137 mmol/L (135-145) 04/12/25 04:14
Potassium 3.7 mmol/L (3.5-5.1) 04/12/25 04:14
BUN 61 mg/dl (7-17) H 04/12/25 04:14
Creatinine 3.6 mg/dL (0.6-1.0) H 04/12/25 04:14
Glucose 107 mg/dl (70-99) H 04/12/25 04:14
Vital Signs and I&O:
Vital Signs
Temp Pulse Resp BP Pulse Ox
98.6 F 59 18 126/57 97
04/12/25 08:00 04/12/25 10:00 04/12/25 08:00 04/12/25 10:00 04/12/25 10:00
Vital Signs
Temp Pulse Resp BP Pulse Ox
98.6 F 59 18 126/57 97
04/12/25 08:00 04/12/25 10:00 04/12/25 08:00 04/12/25 10:00 04/12/25 10:00
Intake & Output
04/10/25 04/11/25 04/12/25 04/13/25
07:59 07:59 07:59 07:59
Intake Total 1746.6 / 1764.4 917.5 / 937.5 817.5 / 827.5 280 / 280
Output Total 1025 / 1025 520 / 545 1555 / 1555 150 / 150
Balance 721.6 / 739.4 397.5 / 392.5 -737.5 / -727.5 130 / 130
Physical Exam
Physical Exam
GEN: No distress, awake, alert, oriented x3. sitting in chair. on supp O2
HEENT: supple, anicteric, mmm, EOMI
LUNGS: Decreased LLB, no wheezes/rales
CV: Reg, S1/S2, no murmur
ABD: soft, BS+, NT/ND
EXT: No cyanosis, clubbing. 1+ edema of B/L LE
NEURO: Gross non-focal
SKIN: Warm, pink, dry. No rash
[2025-04-12] MEDS: LASIX 80 MG IV (10:58)
[2025-04-12] MEDS: NSS 500 IV (11:58)
[2025-04-12] MEDS: MYLICON 80 MG PO (11:58)
--- NOTE | 2025-04-12 12:00 | PTCARENOTE ---
pt VSS, OOB in chair. 1 unit PRBC transfused as ordered, 80mg IVP Lasix given after as ordered. voiding in bathroom. oral hygiene performed. pt c/o gas pain, received PRN Simethicone.
--- NOTE | 2025-04-12 12:46 | W.PN.NEPH.PH ---
Today's Communication / Plan
-
follow labs and cont lasix
Assessment/Plan
-
Impression
Acute kidney injury associated with cardiac surgery with baseline essential solitary left kidney
CKD 3B
Atrophy of the right kidney, unknown etiology
hypertension
Hyperlipidemia
GERD
History of gastric sleeve
Plan
cr improving to 3.6 from peak 3.7
UOP better and cont lasix for hypervolemia
BPs stable, midodrine reduced dose
no need of HD and hopefully will escape
follow h/h, s/p PRBC today, on IV fe course
follow labs
-
-
Date of Service: April 12, 2025
CC / HPI / ROS
-
Chief Complaint:
TERELL
History of Present Illness:
Hemoglobin lower at 7.4
BP improved
TERELL/Cr slightly better at 3.6, non oliguric
Review of Systems:
No chest pain or shortness of breath
no fever, on RA
non Oliguric
Labs
-
Labs:
WBC 13.3 10^3/uL (4.8-10.8) H 04/12/25 04:14
RBC 2.38 10^6/uL (4.20-5.40) L 04/12/25 04:14
Hgb 7.4 g/dL (12.0-16.0) L 04/12/25 04:14
Hct 22.2 % (37.0-47.0) L 04/12/25 04:14
Plt Count 139 10^3/uL (130-400) 04/12/25 04:14
Sodium 137 mmol/L (135-145) 04/12/25 04:14
Potassium 3.7 mmol/L (3.5-5.1) 04/12/25 04:14
Chloride 106 mmol/L (98-107) 04/12/25 04:14
Carbon Dioxide 23 mmol/L (22-30) 04/12/25 04:14
BUN 61 mg/dl (7-17) H 04/12/25 04:14
Creatinine 3.6 mg/dL (0.6-1.0) H 04/12/25 04:14
eGFR 13.78 04/12/25 04:14
Glucose 107 mg/dl (70-99) H 04/12/25 04:14
Calcium 7.5 mg/dl (8.4-10.2) L 04/12/25 04:14
Albumin 2.9 g/dl (3.5-5.0) L 04/10/25 03:12
Physical Exam
-
Vital Signs:
Vital Signs
Temp Pulse Resp BP Pulse Ox
99 F 57 18 152/75 97
04/12/25 11:13 04/12/25 12:15 04/12/25 11:13 04/12/25 12:04 04/12/25 11:13
Cardiovascular:: Regular rate and rhythm
Respiratory:: Bilateral: Coarse
Lung Excursion:: Normal
Abdomen:: Nontender and Soft
Bowel Sounds:: Normal
Extremity Edema:: +2: Bilateral:
Velez Catheter: No
[2025-04-12] MEDS: FERRLECIT 110 MG IV (13:57)
--- NOTE | 2025-04-12 15:03 | CM ---
Chart reviewed. Patient lying in bed. 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 Patient is going to her sisters house when discharged. [address]
Madhu ENGLE, Tamica Song's sister framework developer, 2 STH. Plan is for the patient to go to her sisters house with CT Transitional RN when medically stable. CM to follow
--- NOTE | 2025-04-12 16:00 | PTCARENOTE ---
pt VSS, no changes in assessment. pt ambulated in hallway w/ stand by assist, placed back in bed. resting between care.
[2025-04-12] MEDS: LIPITOR 80 MG PO (17:12)
[2025-04-12] MEDS: REMOVE LIDOCAINE PATCH 1 PATCH REMOVE (20:08)
[2025-04-12] MEDS: ROXICODONE 2.5 MG PO (20:18)
--- NOTE | 2025-04-12 20:30 | PTCARENOTE ---
Report from DONI Felix. Walking rounds done. VS done. Pt walked half loop of CVICU only with RN. No c/o dizziness/lightheadedness. Helped to BR to void clear, yellow urine, then back to bed. Pt oriented x 4, speech clear. Equal strength x 4. Slightly
drowsy. On room air in chair, sats 95%. In bed, 2L [id number]. Sats 97%. BBS present. Decreased B bases. CDB and IS encouraged. Pt in SR-SB. BP normoactive to ,slightly elevated.Audible heart tones. For pulse and wound assessments, see flowsheets.
Surgibra on. Belly large, obese. Normoactive bs x 4. Pt with mod, loose BM at 2130. Voids clear, yellow urine. Roxicodone 2.5 mg for 4/10 c/o left-sided lower back pain.
[2025-04-13] VITALS (16 sets, daily range): BP systolic 118–179; BP diastolic 52–79; PULSE 58; O2SAT 96–98; BMI 33.2
--- NOTE | 2025-04-13 02:16 | W.PN.CT ---
Today's Communication / Plan
-
-pod #4
-no issues overnight
-got 1 pRBC on 04/12 for Hg 7.4, followed by 80 iv Lasix (UO 950/2550 in 12/24hrs)
-hypotension improved - Midodrine decreased to 5 tid on 04/12- >BP 154/66 this am - held Midodrine
-resumed Norvasc 2.5 mg for radial graft
-holding Amio, Toprol d/t bradycardia/hypotension
-follow Cr - 2.8 today (3.6-3.7 on 04/11, 2.3-2.8 on 04/10, 1.4-1.6 on 04/09, and 1.7 preop). Appreciate Nephrology input
-current meds (ASA, Plavix, Lipitor, Midodrine 5 tid, Protonix, Tylenol).
-Encourage use of IS
-OOB into chair/Ambulate as tolerated
-appreciate everyone's input
Assessment / Plan
-
assessment:
-S/P Standard Sternotomy/CABG x 4 (In situ SALEEM to LAD, Ao to RSVG to high diagonal, proximal RSVG of Diag to Radial to OM, Ao to RSVG to LPDA)/Endoscopic vein and artery harvesting of right lower extremity and left radial, respectively/Left atrial
appendage exclusion (35 mm clip, serial #[id number]), by Dr. Sanders, 04/09/25, pod#4
-Multivessel CAD
-NSTEMI (0.330)
-Mild mid asc. aorta dilatation (3.5 cm)
-LVEF 60% per intraop KELLIE
-Family hx of CAD (father had CABG in his 60's)
-Hypertension
-Hyperlipidemia
-Class 1 obesity
-Prediabetes (A1C 5.7)
-History of gastric bypass/gastric sleeve
-Bilateral carotid artery stenosis
-GERD
-Renal insufficiency/ Acute kidney injury
-Anemia
-S/p Right knee surgery
-S/P gastric sleeve
-CKD 3b (Cr 1.4-1.8 preop)
-Atrophy of the right kidney, unknown etiology, with baseline essentially solitary left kidney
-Acute postop blood loss on chronic Anemia (transfused 1u prbc)
-Acute postop atelectasis
-Acute postop hypovolemia with subsequent hypervolemia
-Acute postop hypermagnesemia
-Acute postop sinus bradycardia
-Acute postop TERELL on CKD
-5 beat NSVT on 04/11
Discussed patient care with: Nursing and Care Team
Subjective
Procedure
-S/P Standard Sternotomy/CABG x 4 (In situ SALEEM to LAD, Ao to RSVG to high diagonal, proximal RSVG of Diag to Radial to OM, Ao to RSVG to LPDA)/Endoscopic vein and artery harvesting of right lower extremity and left radial, respectively/Left atrial
appendage exclusion (35 mm clip, serial #[id number]), by Dr. Sanders, 04/09/25
-
Date of Service: April 13, 2025
Objective Data
-
PT 19.8 Sec (11.4-14.6) H 04/10/25 03:12
INR 1.66 04/10/25 03:12
APTT 34.3 Sec (23.4-35.0) 04/09/25 11:47
Vital Signs
Vital Signs
Temp Pulse Resp BP Pulse Ox
98.6 F 57 15 131/61 96
04/12/25 23:25 04/12/25 23:25 04/12/25 23:25 04/12/25 23:25 04/12/25 23:25
CT Intake/Output/Weight
04/12/25 04/12/25 04/13/25
06:59 18:59 06:59
Intake Total 360 / 817.5 460 / 490 30 / 490
Output Total 700 / 1555 1600 / 0 450 / 2050
Balance -340 / -737.5 -1140 / -1560 -420 / -1560
SaO2: 96
Physical Exam
-
General: Awake, Oriented and AOx3
Cardiovascular: Regular rate & rhythm, No Murmurs, No Rub and No Gallop
Respiratory: Decreased Breath Sounds (at bases, otherwise clear )
Sternum: Stable
Incision: Clean, Dry, Intact and Dressing Intact
Extremities: Other (+trace edema)
Data Reviewed
-
Lab Results: Results Reviewed
Medications: Active Meds Reviewed
Chest X-Ray: Report Reviewed and Image Reviewed
ECG: Report Reviewed and Image Reviewed
--- NOTE | 2025-04-13 02:30 | PTCARENOTE ---
Pt helped to BR to void mclear, yellow urine. VS done.
[2025-04-13 03:23] LABS: Hematocrit 25.9 % (37.0-47.0); Hemoglobin 8.7 g/dL (12.0-16.0); Mean Corp Hgb Conc. 33.6 g/dL (33.0-37.0); Mean Corpuscular Volume 90.9 fL (81.0-99.0); Platelet Count 166 10^3/uL (130-400); Red Cell Dist. Width 14.6 % (11.5-14.5)
[2025-04-13 03:48] LABS: Blood Urea Nitrogen 59 mg/dl (7-17); Calcium 7.8 mg/dl (8.4-10.2); Carbon Dioxide 23 mmol/L (22-30); Chloride 108 mmol/L (98-107); Estimated Creatinine Clearance 24 ml/min; Glucose 98 mg/dl (70-99); Magnesium 2.5 mg/dl (1.6-2.3); Potassium 3.4 mmol/L (3.5-5.1); Sodium 138 mmol/L (135-145); eGFR 18.63
[2025-04-13] MEDS: TYLENOL 1000 MG PO ×3 (04:54→21:26)
--- NOTE | 2025-04-13 04:56 | PTCARENOTE ---
Helped to BR to void 200 mls clear urine. Assisted back to bed. C/O lower back pain. Back rub given. Refused Roxicodone. Tylenol 0600 dose given. CHG bath done.
--- NOTE | 2025-04-13 06:30 | PTCARENOTE ---
CHG bath given. Pt helped to recliner chair.VS done. Report to DONI Coffman this am.
--- NOTE | 2025-04-13 08:00 | PTCARENOTE ---
Received pt from night warehouse manager RN; pt AAOx3 and ambulating in room; Sinus Bradycardia on monitor and VSS; RIJ Cordis and PIV x1 patent; Lungs diminished; IS to 1000; positive bowel sounds; pt voiding yellow urine; palpable radial pulses and palpable
DP; no edema noted; all surgical sites C/D/I; see nursing documentation for further details.
[2025-04-13] MEDS: NORVASC 2.5 MG PO ×2 (08:14→19:40)
[2025-04-13] MEDS: PROTONIX 40 MG PO (08:14)
[2025-04-13] MEDS: LOW STRENGTH ASPIRIN 81 MG PO (08:14)
[2025-04-13] MEDS: PLAVIX 75 MG PO (08:14)
[2025-04-13] MEDS: SENOKOT-S 1 TABLET PO ×2 (08:14→19:40)
[2025-04-13] MEDS: BACTROBAN 2% OINTMENT 1 APPLIC NASAL (08:15)
[2025-04-13] MEDS: LIDOCAINE 4% PATCH TOPICAL (08:15)
[2025-04-13] MEDS: LASIX 40 MG IV (09:09)
[2025-04-13] MEDS: KCL 40 MEQ PO ×2 (09:09→11:29)
--- NOTE | 2025-04-13 12:27 | PTCARENOTE ---
Sinus Bradycardia on monitor and VSS; assessment unchanged and pt ambulating hallways and room.
--- NOTE | 2025-04-13 13:29 | W.PN.NEPH.PH ---
Today's Communication / Plan
-
lasix, kcl
labs later today for potassium
Assessment/Plan
-
Impression
Acute kidney injury associated with cardiac surgery with baseline essential solitary left kidney
CKD 3B
Atrophy of the right kidney, unknown etiology
hypertension
Hyperlipidemia
GERD
History of gastric sleeve
Plan
cr improving to 2.8 , non oliguric
cont lasix for hypervolemia
BPs stable holding midodrine
replace k
follow h/h on IV fe course
follow labs
d/w pt and nursing
-
-
Date of Service: April 13, 2025
CC / HPI / ROS
-
Chief Complaint:
TERELL
History of Present Illness:
Hemoglobin better at 8.7
BP improved off midodrine
TERELL/Cr better at 2.8, k low 3.4, non oliguric
Review of Systems:
mild surgical chest pain , no shortness of breath at rest
no fever, on RA
non Oliguric
Labs
-
Labs:
WBC 12.9 10^3/uL (4.8-10.8) H 04/13/25 02:52
RBC 2.85 10^6/uL (4.20-5.40) L 04/13/25 02:52
Hgb 8.7 g/dL (12.0-16.0) L 04/13/25 02:52
Hct 25.9 % (37.0-47.0) L 04/13/25 02:52
Plt Count 166 10^3/uL (130-400) 04/13/25 02:52
Sodium 138 mmol/L (135-145) 04/13/25 02:52
Potassium 3.4 mmol/L (3.5-5.1) L 04/13/25 02:52
Chloride 108 mmol/L (98-107) H 04/13/25 02:52
Carbon Dioxide 23 mmol/L (22-30) 04/13/25 02:52
BUN 59 mg/dl (7-17) H 04/13/25 02:52
Creatinine 2.8 mg/dL (0.6-1.0) H 04/13/25 02:52
eGFR 18.63 04/13/25 02:52
Glucose 98 mg/dl (70-99) 04/13/25 02:52
Calcium 7.8 mg/dl (8.4-10.2) L 04/13/25 02:52
Albumin 2.9 g/dl (3.5-5.0) L 04/10/25 03:12
Physical Exam
-
Vital Signs:
Vital Signs
Temp Pulse Resp BP Pulse Ox
98.8 F 60 20 158/69 97
04/13/25 08:00 04/13/25 11:15 04/13/25 08:00 04/13/25 11:01 04/13/25 11:01
Cardiovascular:: Regular rate and rhythm
Respiratory:: Bilateral: Coarse
Lung Excursion:: Normal
Abdomen:: Nontender and Soft
Extremity Edema:: +1: Bilateral:
Velez Catheter: No
[2025-04-13 16:47] LABS: Blood Urea Nitrogen 57 mg/dl (7-17); Calcium 8.1 mg/dl (8.4-10.2); Carbon Dioxide 26 mmol/L (22-30); Chloride 108 mmol/L (98-107); Estimated Creatinine Clearance 28 ml/min; Glucose 120 mg/dl (70-99); Potassium 3.8 mmol/L (3.5-5.1); Sodium 140 mmol/L (135-145); eGFR 22.42
[2025-04-13] MEDS: LIPITOR 80 MG PO (17:13)
--- NOTE | 2025-04-13 17:17 | PTCARENOTE ---
NSR on monitor and VSS; pt ambulating hallways wit family; assessment unchanged; report given to IVU RN pt transferred to 2254.
[2025-04-13] MEDS: KCL 20 MEQ PO (17:57)
--- NOTE | 2025-04-13 18:04 | TRANSFER ---
PT transferred from CVICU to IVU. placed on this units stogy roller. pt aaox3, on RA able to ambulate down bhandari without issue under own power to get to new room. sister at accompanying pt. bedside report received from Janeth Hager. Janeth Hager
spent about 15-20 mins going over education relevant to pt condition; pt and sister both receptive. pt denies CP/sob at this moment in time. Right IJ patent with KVO infusing per orders. pt with Right AC, capped. sternal incision approximated
with glue present, left lower arm with glue present, incision approximated, left mid arm, glue present, approximated, right lower extremity, glue present, incision approximated and lastly right groin puncture marcus scabbed. pt is on RA with b/l
bases diminished. RRR with HR 62 on monitor, distant heart sounds. trace b/l lower extremity edema noted. brisk cap refill noted in b/l hands and feet. abdomen obese, pt reports + gas, no bms today, tenderness noted. pt reports generalized
weakness overall, reports R knee and L hip with limited ROM. pt ordering dinner, sister remains at bedside. plan of care continues to be followed.
[2025-04-13] MEDS: NSS IV (19:41)
[2025-04-13] MEDS: REMOVE LIDOCAINE PATCH 1 PATCH REMOVE (19:41)
[2025-04-13] MEDS: TOPROL XL 12.5 MG PO (21:23)
[2025-04-13] MEDS: MYLICON 80 MG PO (21:26)
--- NOTE | 2025-04-13 23:54 | PTCARENOTE ---
Assumed care on pt at 1900, aaox3, sister at bedside. Pt denies any pain/discomfort, sternal precautions maintained. Right IJ with KVO infusing at 10cc/hour per orders, pt c/o burning sensation from site, button tufting machine operator CT PA at bedside to assess and also
VAT nurse at bedside to reinforce dressing, pt stated that it felt better after dressing reinforced, but it is not convenient as she can't move head freely. Sternal incision approximated with surgical glue present, left lower arm and right lower leg
incision CDI with surgical glue approximated,right groin puncture marcus scabbed. SR/SR on the monitor, Hr 60's. POC ongoing, call suggs within reach.
[2025-04-14] VITALS (8 sets, daily range): BP systolic 167–181; BP diastolic 62–75; BMI 32.8
[2025-04-14] MEDS: TYLENOL 650 MG PO (02:09)
[2025-04-14 03:07] LABS: Hematocrit 26.5 % (37.0-47.0); Hemoglobin 8.9 g/dL (12.0-16.0); Mean Corp Hgb Conc. 33.6 g/dL (33.0-37.0); Mean Corpuscular Volume 92.0 fL (81.0-99.0); Platelet Count 209 10^3/uL (130-400); Red Cell Dist. Width 14.1 % (11.5-14.5)
[2025-04-14 03:16] LABS: Blood Urea Nitrogen 48 mg/dl (7-17); Calcium 8.1 mg/dl (8.4-10.2); Carbon Dioxide 25 mmol/L (22-30); Chloride 109 mmol/L (98-107); Estimated Creatinine Clearance 34 ml/min; Glucose 108 mg/dl (70-99); Magnesium 2.2 mg/dl (1.6-2.3); Potassium 3.9 mmol/L (3.5-5.1); Sodium 140 mmol/L (135-145); eGFR 27.90
--- NOTE | 2025-04-14 05:49 | W.PN.CT ---
Today's Communication / Plan
-
-pod #5
-no issues overnight
-hypotension improved - Midodrine decreased to 5 tid on 04/12 then held 04/13, became hypertensive and BB/norvasc increased
-Norvasc for radial graft
-follow Cr - 2.8->2 today (3.6-3.7 on 04/11, 2.3-2.8 on 04/10, 1.4-1.6 on 04/09, and 1.7 preop). Appreciate Nephrology input
-current meds (ASA, Plavix, Lipitor, Midodrine 5 tid, Protonix, Tylenol).
-Encourage use of IS
-OOB into chair/Ambulate as tolerated
-appreciate everyone's input
Assessment / Plan
-
assessment:
-S/P Standard Sternotomy/CABG x 4 (In situ SALEEM to LAD, Ao to RSVG to high diagonal, proximal RSVG of Diag to Radial to OM, Ao to RSVG to LPDA)/Endoscopic vein and artery harvesting of right lower extremity and left radial, respectively/Left atrial
appendage exclusion (35 mm clip, serial #[id number]), by Dr. Sanders, 04/09/25, pod#5
-Multivessel CAD
-NSTEMI (0.330)
-Mild mid asc. aorta dilatation (3.5 cm)
-LVEF 60% per intraop KELLIE
-Family hx of CAD (father had CABG in his 60's)
-Hypertension
-Hyperlipidemia
-Class 1 obesity
-Prediabetes (A1C 5.7)
-History of gastric bypass/gastric sleeve
-Bilateral carotid artery stenosis
-GERD
-Renal insufficiency/ Acute kidney injury
-Anemia
-S/p Right knee surgery
-S/P gastric sleeve
-CKD 3b (Cr 1.4-1.8 preop)
-Atrophy of the right kidney, unknown etiology, with baseline essentially solitary left kidney
-Acute postop blood loss on chronic Anemia (transfused 1u prbc)
-Acute postop atelectasis
-Acute postop hypovolemia with subsequent hypervolemia
-Acute postop hypermagnesemia
-Acute postop sinus bradycardia
-Acute postop TERELL on CKD
-5 beat NSVT on 04/11
Subjective
Procedure
-S/P Standard Sternotomy/CABG x 4 (In situ SALEEM to LAD, Ao to RSVG to high diagonal, proximal RSVG of Diag to Radial to OM, Ao to RSVG to LPDA)/Endoscopic vein and artery harvesting of right lower extremity and left radial, respectively/Left atrial
appendage exclusion (35 mm clip, serial #[id number]), by Dr. Sanders, 04/09/25
-
Date of Service: April 14, 2025
Objective Data
-
Lab Results
04/14/25 02:18
04/14/25 02:18
PT 19.8 Sec (11.4-14.6) H 04/10/25 03:12
INR 1.66 04/10/25 03:12
APTT 34.3 Sec (23.4-35.0) 04/09/25 11:47
Vital Signs
Vital Signs
Temp Pulse Resp BP Pulse Ox
98.8 F 58 18 168/73 96
04/14/25 02:10 04/14/25 03:45 04/14/25 02:10 04/14/25 02:43 04/14/25 02:10
CT Intake/Output/Weight
04/13/25 04/13/25 04/14/25
06:59 18:59 06:59
Intake Total 100 / 560
Output Total 950 / 2550 1499
Balance - / -1499 -
SaO2: 96
Physical Exam
-
General: Awake, Oriented and AOx3
Cardiovascular: Regular rate & rhythm and No Murmurs
Respiratory: Equal and Decreased Breath Sounds
Sternum: Stable
Incision: Clean, Dry and Intact
Extremities: Edema +1
Data Reviewed
-
Lab Results: Results Reviewed
Medications: Active Meds Reviewed
Chest X-Ray: Report Reviewed
ECG: Report Reviewed
[2025-04-14] MEDS: TYLENOL 1000 MG PO ×2 (06:09→15:59)
[2025-04-14] MEDS: NORVASC 5 MG PO (06:32)
[2025-04-14] MEDS: LOW STRENGTH ASPIRIN 81 MG PO (08:06)
[2025-04-14] MEDS: LIDOCAINE 4% PATCH TOPICAL (08:06)
[2025-04-14] MEDS: SENOKOT-S 1 TABLET PO (08:06)
[2025-04-14] MEDS: PLAVIX 75 MG PO (08:06)
[2025-04-14] MEDS: TOPROL XL 25 MG PO (08:06)
[2025-04-14] MEDS: PROTONIX 40 MG PO (08:06)
[2025-04-14] MEDS: NSS IV (10:21)
--- NOTE | 2025-04-14 10:21 | PTCARENOTE ---
Pt is AOx3, no complaints of pain or discomfort. Sternal precautions followed. SB on tele monitor, BP elevated will continue to monitor. Standby assist OOB. Call suggs within reach.
[2025-04-14] MEDS: ROXICODONE 2.5 MG PO (10:59)
--- NOTE | 2025-04-14 12:10 | W.PN.NEPH.PH ---
Today's Communication / Plan
-
d/c plan
Assessment/Plan
-
Impression
Acute kidney injury associated with cardiac surgery with baseline essential solitary left kidney
CKD 3B
Atrophy of the right kidney, unknown etiology
hypertension
Hyperlipidemia
GERD
History of gastric sleeve
Plan
cr improving to 2 , non oliguric
cont lasix for hypervolemia
BPs high back on low dose CCB and BB
resume all anti HTN meds
not on ACEI or ARB with solitary functioning left kidney
hb stable on IV fe course
If d/c labs next week
f/u nephro
d/w pt and
-
-
Date of Service: April 14, 2025
CC / HPI / ROS
-
Chief Complaint:
TERELL
History of Present Illness:
Hemoglobin stable at 8.9
BP high now
TERELL/Cr better at 2, non oliguric
wt is down
Review of Systems:
mild surgical chest pain , no shortness of breath
no fever, on RA
non Oliguric
Labs
-
Labs:
WBC 10.9 10^3/uL (4.8-10.8) H 04/14/25 02:18
RBC 2.88 10^6/uL (4.20-5.40) L 04/14/25 02:18
Hgb 8.9 g/dL (12.0-16.0) L 04/14/25 02:18
Hct 26.5 % (37.0-47.0) L 04/14/25 02:18
Plt Count 209 10^3/uL (130-400) D 04/14/25 02:18
Sodium 140 mmol/L (135-145) 04/14/25 02:18
Potassium 3.9 mmol/L (3.5-5.1) 04/14/25 02:18
Chloride 109 mmol/L (98-107) H 04/14/25 02:18
Carbon Dioxide 25 mmol/L (22-30) 04/14/25 02:18
BUN 48 mg/dl (7-17) H 04/14/25 02:18
Creatinine 2.0 mg/dL (0.6-1.0) H 04/14/25 02:18
eGFR 27.90 04/14/25 02:18
Glucose 108 mg/dl (70-99) H 04/14/25 02:18
Calcium 8.1 mg/dl (8.4-10.2) L 04/14/25 02:18
Albumin 2.9 g/dl (3.5-5.0) L 04/10/25 03:12
Physical Exam
-
Vital Signs:
Vital Signs
Temp Pulse Resp BP Pulse Ox
98.7 F 58 17 179/74 96
04/14/25 11:47 04/14/25 11:45 04/14/25 11:47 04/14/25 11:36 04/14/25 11:47
Cardiovascular:: Regular rate and rhythm
Respiratory:: Bilateral: Coarse
Lung Excursion:: Normal
Abdomen:: Nontender and Soft
Extremity Edema:: +1: Bilateral:
Velez Catheter: No
--- NOTE | 2025-04-14 15:29 | W.[place]-PDMP ---
[place]-PD[place]
-
Checked the [place]- Prescription Drug Monitoring Program website, no red flags identified; safe to proceed with prescription.
--- NOTE | 2025-04-14 15:30 | W.DCSUMMARY ---
Discharge Summary
Discharge Data
Date of Admission: 04/09/25
Date of Discharge: 04/14/25
-
Pending Results: No
Hospital Course
Primary care physician:
Bc Lemus
Outpatient rfid analyst:
Jamie Cr
Inpatient consultants:
Procedures:
1.
Primary Diagnosis:
-Multivessel CAD
-NSTEMI (0.330)
-Mild mid asc. aorta dilatation (3.5 cm)
-LVEF 60% per intraop KELLIE
-Family hx of CAD (father had CABG in his 60's)
-Hypertension
-Hyperlipidemia
-Class 1 obesity
-Prediabetes (A1C 5.7)
-History of gastric bypass/gastric sleeve
-Bilateral carotid artery stenosis
-GERD
-Renal insufficiency/ Acute kidney injury
-Anemia
-S/p Right knee surgery
-S/P gastric sleeve
-CKD 3b (Cr 1.4-1.8 preop)
-Atrophy of the right kidney, unknown etiology, with baseline essentially solitary left kidney
Secondary Diagnoses:
-s/p CABGx4/LAAL
-Acute postop blood loss on chronic Anemia (transfused 1u prbc)
-Acute postop atelectasis
-Acute postop hypovolemia with subsequent hypervolemia
-Acute postop hypermagnesemia
-Acute postop sinus bradycardia
-Acute postop TERELL on CKD
-Multivessel CAD
-NSTEMI (0.330)
-Mild mid asc. aorta dilatation (3.5 cm)
-LVEF 60% per intraop KELLIE
-Family hx of CAD (father had CABG in his 60's)
-Hypertension
-Hyperlipidemia
-Class 1 obesity
-Prediabetes (A1C 5.7)
-History of gastric bypass/gastric sleeve
-Bilateral carotid artery stenosis
-GERD
-Renal insufficiency/ Acute kidney injury
-Anemia
-S/p Right knee surgery
-S/P gastric sleeve
-CKD 3b (Cr 1.4-1.8 preop)
-Atrophy of the right kidney, unknown etiology, with baseline essentially solitary left kidney
HPI: 59-year-old female (R hand dominant) with PMH of HTN, GERD, obesity w/gastric sleeve, admitted to [facility] ER on 04/01/25 for severe nocturnal chest/back discomfort that has been awakening her from sleep x 1 week. Denies
aggravating/alleviating factors. Today, she picked up a water bottle off the ground and noted the sudden onset of chest discomfort similar to the pain that awakened her from sleep. She ruled in for a NSTEMI with initial troponin 0.33. IV heparin,
aspirin, and statin were initiated. A TTE reported an EF of 60 to 65% with normal right ventricular size and function. There was mild mitral regurgitation, no aortic stenosis, trace aortic insufficiency/tricuspid regurgitation/pulmonary
insufficiency. Patient underwent left heart catheterization on 04/02/2025 which reported multi-vessel coronary disease. She was subsequently discharged to home On 04/04/2025, after being scheduled for surgical readmission.
Hospital course: The patient was admitted for same-day admission on 04/09/2025, taken to the OR and underwent coronary artery bypass grafting x 4 with a SALEEM to LAD, reverse saphenous vein graft to high diagonal, radial artery from the vein graft to
diagonal to the obtuse marginal, and a reverse saphenous vein graft to the PDA. She also had a left atrial clip applied. she tolerated the procedure well and was transferred to the CVICU in stable condition. She was extubated later that day. She
was a bit hypotensive following surgery which required pressor support. On postop day 1 she developed acute kidney injury with a creatinine of 2.3 which eventually peaked to 3.6. nephrology was consulted for help with management. Her pressors
were discontinued she was placed on midodrine at her blood pressure slowly improved with this she was able to be diuresed and her creatinine also began trending down. she maintained normal sinus rhythm throughout without developing atrial
fibrillation. As her blood pressure improved Home medications were gradually added until she was on her home regimen. On postop day 5 it was felt that she could safely be discharged home. She was discharged on 7 days worth of Lasix. She will
follow-up with nephrology in 1 week. She will follow-up with cardiac surgery and cardiology as scheduled. She was given explicit instructions on wound care physical activity and diet.
Home medication changes:
continued all preop meds
added Plavix 75mg daily, Lasix 40mg daily x7 days, KCl 20meq daily x7 days, Oxycodone PRN, acetaminophen PRN
Discharge Plan
-
Patient Disposition: Home (Routine Discharge)
Discharge Diagnosis/Procedures: CABG x 4, left atrial appendage clip (04/09/25)
Diet: Low Cholesterol and Low Sodium
Activity: No strenuous activity
Driving Restrictions: Not until seen by your Dr
Bathing Restrictions: OK to Shower
Other Services: Cardiac Rehab
Specialty Instructions: Weigh Daily- Call MD for wt gain/loss 3 lbs overnight/5 lbs in 1 week
Activity Restrictions/Additional Instructions:
Please call to make appointments for Phase II Cardiac Rehab: (when ready/Insurance established)
[facility] (8min from home)
[address] [place] [address]
[place] [address]
[phone]
ACTIVITY:
-No strenuous activity: no heavy lifting, pushing, pulling anything over 15 pounds for one month
-continue to use stairs as tolerated
DRIVING RESTRICTIONS:
-No driving for one month or until approved by your surgeon
WOUND CARE:
-Shower daily. Use soap & water.
-No lotions, creams or powders on incision area.
DIET:
-continue a low fat/low cholesterol diet.
-IF you are diabetic, continue carb controlled diet.
CARDIAC REHAB:
-Please make appointment to start in 5-6 weeks with your local hospital program. (See Cardiac Rehabilitation Discharge Booklet).
SPECIALTY INSTRUCTIONS:
-Weigh yourself daily. Call your physician for any weight gain/loss of 3 lbs overnight or 5 lbs in one week.
-REPORT any clicking noise or uneven appearance of your sternum to your surgeon immediately.
-If you smoke, you are instructed to quit. The [facility] smoking hotline phone number is [phone]
Referrals:
CT Transitional Care Nurse [Outside]
Referral Note: The Cardiothoracic Transitional Care Nurse will call you to set up a visit in 1-2 days.
Su Lorenzo PA-C [Specified Professional Personl, Cardiology] - 05/22/25 1:20 pm
UNKNOWN - PT NOT,INTERVIEWE [Family Provider]
Onelia Garcia MD [Active, Nephrology] - in one week
Referral Note: please call for an appointment when you arrive home.
Vivian Lux CRNP [Specified Professional Personl, Cardiac Surgery] - 05/15/25 11:00 am
Prescriptions:
New
clopidogrel 75 mg Tablet
75 mg PO DAILY Qty: 30 2RF
oxycodone 5 mg Tablet
2.5 mg PO Q4HPRN PRN (Reason: mild pain) Qty: 20 0RF
acetaminophen 325 mg Tablet
650 mg PO Q4HPRN PRN (Reason: mild pain,headache,temp >101F ) Qty: 0 0RF
furosemide [Lasix] 40 mg tablet
40 mg PO DAILY Qty: 7 0RF
potassium chloride [K-Tab] 20 mEq tablet extended release
20 meq PO DAILY Qty: 7 0RF
Continued
cyanocobalamin (vitamin B-12) 1,000 mcg Tablet
1,000 mcg PO DAILY
therapeutic multivitamin Tablet
1 tab PO DAILY
omeprazole 40 mg Capsule,Delayed Release(Dr/Ec)
40 mg PO DAILY
amlodipine [Norvasc] 10 mg Tablet
10 mg PO DAILY
atorvastatin 80 mg Tablet
80 mg PO QPM 30 Days Qty: 30 0RF
carvedilol 6.25 mg tablet
6.25 mg PO BID
hydralazine 25 mg tablet
25 mg PO BID
aspirin 81 mg tablet,chewable
81 mg PO DAILY
Discharge Orders:
Discharge Patient (As Directed); Ordered 04/14/25
Ordered By: Jamie Mohan
Care Plan Goals
Care Plan Goals:
Problem: Readiness for enhanced knowledge related to diagnosis and treatment plan
Goal: Understand your diagnosis and treatment plan needs, including medications if applicable.
Instructions: Know your diagnosis, underlying causes and treatment plan options, including medications if applicable. Consult with your health care team to learn about your diagnosis and treatment plan, including medications if applicable.
Discharge Date and Time
Discharge Date/Time: 04/14/25 17:35
Print Language: [id number]
== END 2025-04-14 17:35 | disposition home or self-care (01) | DRG 235 ==
LOC: IVU 04:55
PROVIDERS: Anesthesiology; Internal Medicine; Nurse Practitioner; Physician Assistant Medical; ADMITTING PHYSICIAN Thoracic Surgery (Cardiothoracic Vascular Surgery); CONSULT PHYSICIAN Internal Medicine Cardiovascular Disease; CONSULT PHYSICIAN Internal Medicine Critical Care Medicine; CONSULT PHYSICIAN Specialist
PROC: 021109W Bypass Coronary Artery, Two Arteries from Aorta with Autologous Venous Tissue, Open Approach (ICD-10-PCS; 2025-04-09)
PROC: 30233N1 Transfusion of Nonautologous Red Blood Cells into Peripheral Vein, Percutaneous Approach (ICD-10-PCS; 2025-04-09)
PROC: 5A1221Z Performance of Cardiac Output, Continuous (ICD-10-PCS; 2025-04-09)
PROC: 02100Z9 Bypass Coronary Artery, One Artery from Left Internal Mammary, Open Approach (ICD-10-PCS; 2025-04-09)
PROC: 06BP4ZZ Excision of Right Saphenous Vein, Percutaneous Endoscopic Approach (ICD-10-PCS; 2025-04-09)
PROC: B24BZZ4 Ultrasonography of Heart with Aorta, Transesophageal (ICD-10-PCS; 2025-04-09)
PROC: 02L70CK Occlusion of Left Atrial Appendage with Extraluminal Device, Open Approach (ICD-10-PCS; 2025-04-09)
PROC: 03BC4ZZ Excision of Left Radial Artery, Percutaneous Endoscopic Approach (ICD-10-PCS; 2025-04-09)
PROC: 02100A3 Bypass Coronary Artery, One Artery from Coronary Artery with Autologous Arterial Tissue, Open Approach (ICD-10-PCS; 2025-04-09)
DX: I25.10 Atherosclerotic heart disease of native coronary artery without angina pectoris (principal); I21.4 Non-ST elevation (NSTEMI) myocardial infarction; N17.9 Acute kidney failure, unspecified; Q21.12 Patent foramen ovale; D62 Acute posthemorrhagic anemia; E87.20 Acidosis, unspecified; J98.11 Atelectasis; I47.20 Ventricular tachycardia, unspecified; E86.1 Hypovolemia; E87.70 Fluid overload, unspecified; E83.41 Hypermagnesemia; R00.1 Bradycardia, unspecified; I95.81 Postprocedural hypotension; I13.10 Hypertensive heart and chronic kidney disease without heart failure, with stage 1 through stage 4 chronic kidney disease, or unspecified chronic kidney disease; N18.32 Chronic kidney disease, stage 3b; E78.5 Hyperlipidemia, unspecified; K21.9 Gastro-esophageal reflux disease without esophagitis; I65.23 Occlusion and stenosis of bilateral carotid arteries; E66.811 Obesity, class 1; G47.30 Sleep apnea, unspecified; N26.1 Atrophy of kidney (terminal); I77.819 Aortic ectasia, unspecified site; R73.03 Prediabetes; Z68.32 Body mass index [BMI] 32.0-32.9, adult; Z98.84 Bariatric surgery status; Z79.82 Long term (current) use of aspirin; Z82.49 Family history of ischemic heart disease and other diseases of the circulatory system
CPT/HCPCS: 71045; 71046; 80048; 80053; 81003; 81015; 82248; 82330; 82565; 82805; 82810; 82947; 82962; 83605; 83735; 84132; 84302; 84520; 85014; 85018; 85027; 85049; 85610; 85730; 86850; 86900; 86901; 86920; 93005; 93312; 93320; 93325; 94002; J2916; P9016; P9045; P9047

== ENCOUNTER → 2025-05-15 11:49 | Outpatient (REF) | payer OTHER, SELFPAY ==
[2025-05-15 12:49] LABS: Hematocrit 33.8 % (37.0-47.0); Hemoglobin 10.9 g/dL (12.0-16.0); Mean Corp Hgb Conc. 32.2 g/dL (33.0-37.0); Mean Corpuscular Volume 97.4 fL (81.0-99.0); Nucleated Red Blood Cells % 0 %; Platelet Count 227 10^3/uL (130-400); Red Cell Dist. Width 14.6 % (11.5-14.5)
[2025-05-15 13:10] LABS: Albumin 4.2 g/dl (3.5-5.0); Blood Urea Nitrogen 26 mg/dl (7-17); Calcium 9.9 mg/dl (8.4-10.2); Carbon Dioxide 25 mmol/L (22-30); Chloride 111 mmol/L (98-107); Glucose 95 mg/dl (70-99); Potassium 4.5 mmol/L (3.5-5.1); Sodium 143 mmol/L (135-145); eGFR 42.80
[2025-05-15 13:20] LABS: Urine Character Clear (Clear)
[2025-05-15 13:59] LABS: Urine Squamous Cell >30 /LPF (Few); Urine Urothelial Cell 0-2 /LPF (FEW)
[2025-05-15 14:00] LABS: Urine Red Blood Cell 0-2 /HPF (0-2); Urine White Cell 0-2 /HPF (0-5)
== END ==
LOC: REG 11:49
PROVIDERS: ATTENDING PHYSICIAN Internal Medicine; FAMILY PHYSICIAN Family Medicine
DX: N17.9 Acute kidney failure, unspecified (principal); D64.9 Anemia, unspecified
CPT/HCPCS: 36415; 80069; 81003; 81015; 82570; 84156; 85025